=== PATIENT | female | born 1980 | race Caucasian/White ===

== ENCOUNTER → 2019-02-13 | Outpatient (REF) | payer OTHER | LOC: M LAB LCGH 09:42 | DX: N83.201 Unspecified ovarian cyst, right side (principal) ==

== ENCOUNTER 2021-08-20 05:57 | Day surgery (SDC) | payer BC ==
[2021-08-20] VITALS (8 sets, daily range): BP systolic 98–110; BP diastolic 52–57
[~2021-08-20] VITALS: Ht 152.4 cm; Wt 43.3 kg
[~2021-08-20 05:57] MED LIST: VITMTA PO
[2021-08-20] MEDS ORDERED: LIDOCAINE 1% MDV 20ML VIAL SQ PRN (06:00)
--- OUTSIDE RECORDS SUMMARY | 2021-08-20 06:03 | CCD | Continuity of Care Document ---
Author Author Amy MURCIA SAP BW CONSULTANT Organization Unknown Address [address] [place] [address] [address] [place] [address] Phone [phone] Care Team Providers Care Chain Sales Representative Name Role Phone Yoselin Can ([place]) AUTM Aide Carrillo MD - Orthopedic AUTM [phone] Yoselin Can M.D. AUTM [phone] Stacy Murcia SAP BW CONSULTANT AUTM [phone] Problems Active Problems Provider Date Raynaud's disease SYEDA Antunez Onset: 04/03/2015 Social History Type Date Description Comments Sex Unknown ETOH Use Denies alcohol use Tobacco Use Start: Unknown Patient has never smoked Recreational Drug Use Denies Drug Use Smoking Status Reviewed: 08/19/20 Patient has never smoked Exercise Type/Frequency Daily Activities Exercise Type/Frequency Walks daily Seat Belt/Car Seat Always uses seat belt Allergies, Adverse Reactions, Alerts Active Allergies Criticality Reaction | Severity Comments Date Flagyl Unable to assess criticality rash, vomit 12/04/2013 Sulfa Antibiotics Unable to assess criticality rash, vomit 11/16/2012 Augmentin Unable to assess criticality Hives | Moderate 01/24/2017 Medications Description No Active Medications Immunizations CPT Code Status Date Vaccine Lot # [id number] Given 08/19/2020 Influenza Virus Vaccine, Quadrivalent (Cciiv4), Derived From 4 Given 07/14/2014 Adacel (Tdap) Injection Vital Signs Date Vital Result Comment 08/19/2020 8:58am Height 60 inches 5'0" Weight 119.00 lb BMI (Body Mass Index) 23.2 kg/m2 BP Systolic 110 mmHg BP Diastolic 64 mmHg Body Temperature 97.3 F Heart Rate 83 /min Respiratory Rate 16 /min O2 % BldC Oximetry 97 % 01/27/2020 1:02pm Height 60 inches 5'0" Weight 118.00 lb BMI (Body Mass Index) 23.0 kg/m2 BP Systolic 126 mmHg BP Diastolic 82 mmHg Body Temperature 96.3 F Heart Rate 80 /min Respiratory Rate 16 /min Results Test Acquired Date Facility Test Result H/L Range Note CBC With Auto Diff 07/02/2021 [facility] WBC # Bld Auto 7.7 10*3/uL Normal 4.45-10.71 1 RBC # Bld Auto 3.50 10*6/uL Low 4.20-5.40 Hgb Bld-sCnc 11.2 g/dL Normal 10.7-15.4 Hct VFr Bld Auto 33.7 % Low 37-47 MCV BldCo Auto 96 fL Normal 80-96 MCH RBC Qn Auto 32 pg High 27-31 MCHC BldCo-mCnc 33 g/dL Normal 33-37 RDW RBC Auto 12 % Normal 11-15 Platelet # Bld Auto 287 10*3/uL Normal 130-472 PMV Bld 8.9 fL Low 9.1-13.1 Neutrophils/leuk NFr Bld Auto 44.9 % Normal 41-77 Neutrophils # Bld Auto 3.5 U Normal 1.7-7.6 Lymphocytes/leuk NFr Bld Auto 35.6 % Normal 14-46 Lymphocytes # Bld Auto 2.8 U Normal 0.6-4.6 Monocytes/leuk NFr Bld Auto 6.9 % Normal 4-12 Monocytes # Bld Auto 0.5 U Normal 0.2-1.2 Eosinophil/leuk NFr Bld Auto 11.5 % High 0-7 Eosinophil # Bld Auto 0.9 U High 0.0-0.5 Basophils/leuk NFr Bld Auto 0.8 % Normal 0.4-1.3 Basophils # Bld Auto 0.1 U Normal 0.0-0.2 Nucleated Red Blood Cell 0 % Nucleated Red Blood Cell# 0 U Imm Granulocytes Bld Ql Auto 0.3 Normal 0-2 Imm Granulocytes # Bld Auto 0.0 U Normal 0-0.1 Manual diff Bld NO Comprehensive Metabolic Prof 07/02/2021 [facility] BUN SerPl-mCnc 13 mg/dL Normal 9-23 Sodium SerPl-sCnc 141 mmol/L Normal 132-146 Potassium SerPl-sCnc 3.8 mmol/L Normal 3.5-5.5 Chloride SerPl-sCnc 109 mmol/L Normal 99-109 Co2 SerPl-sCnc 28 mmol/L Normal 20-31 Anion Gap SerPl-sCnc 8 mmol/L Normal 8-16 Glucose SerPl-mCnc 106 mg/dL Normal 74-106 Creatinine 0.6 mg/dL Normal 0.5-1.1 GFR/Bsa.pred SerPlBld-ArVRat Greater Than 60 Above 60 Alt SerPl w P-5'-P-cCnc 18 U/L Normal 10-49 Ast SerPl w P-5'-P-cCnc 13 U/L Normal 0-33 Alp SerPl-cCnc 62 U/L Normal 45-129 Calcium SerPl-mCnc 8.4 mg/dL Low 8.5-10.1 Bilirub SerPl-mCnc 0.4 mg/dL Normal 0.3-1.2 Albumin SerPl BCP-mCnc 3.3 g/dL Normal 3.2-4.8 Prot SerPl-mCnc 6.6 g/dL Normal 5.7-8.2 Laboratory test finding 07/02/2021 [facility] HCG Ur-sCnc NEGATIVE Negative Urinalysis 07/02/2021 [facility] Urine Microscopic Added Microscopic Adde <SEE NOTE> 2 Color Ur ORANGE Abnormal Appearance Ur CLOUDY Abnormal Clear pH Ur Strip 6.0 5-8 Sp [address] Ur Refractometry 1.014 1.005-1.030 Leukocyte esterase Ur Ql Strip SMALL High Negative Nitrite Ur Ql Strip NEGATIVE Negative Prot Ur Ql Strip 30 mg/dL High Negative Glucose Ur Strip.auto-mCnc NEGATIVE Negative Ketones Ur Ql Strip NEGATIVE Negative Urobilinogen Ur Ql 0.2 EU/dl 0.2-1 Eu/dl Bilirub Ur Ql Strip.auto NEGATIVE Negative RBC # Ur Strip LARGE High Negative Urinalysis W/ Microscopic 07/02/2021 [facility] RBC # Ur Manual 51-100 [facility] High 0-5 WBC # Ur Manual 3-5 [facility] 0-5 Cells UrnS Micro FEW Bacteria UrnS Ql Micro SMALL AMOUNT High Negative Sars-CoV+Sars-CoV-2 Ag Resp Ql Ia.rapid 06/28/2021 [facility] Cepheid Sars/Flu/RSV RT-PCR (SEE NOTE) 3, 4 CBC With Auto Diff 06/28/2021 [facility] WBC # Bld Auto 8.3 10*3/uL Normal 4.45-10.71 RBC # Bld Auto 3.92 10*6/uL Low 4.20-5.40 Hgb Bld-sCnc 12.6 g/dL Normal 10.7-15.4 Hct VFr Bld Auto 37.5 % Normal 37-47 MCV BldCo Auto 96 fL Normal 80-96 MCH RBC Qn Auto 32 pg High 27-31 MCHC BldCo-mCnc 34 g/dL Normal 33-37 RDW RBC Auto 12 % Normal 11-15 Platelet # Bld Auto 349 10*3/uL Normal 130-472 PMV Bld 8.9 fL Low 9.1-13.1 Neutrophils/leuk NFr Bld Auto 55.9 % Normal 41-77 Neutrophils # Bld Auto 4.7 U Normal 1.7-7.6 Lymphocytes/leuk NFr Bld Auto 29.8 % Normal 14-46 Lymphocytes # Bld Auto 2.5 U Normal 0.6-4.6 Monocytes/leuk NFr Bld Auto 6.7 % Normal 4-12 Monocytes # Bld Auto 0.6 U Normal 0.2-1.2 Eosinophil/leuk NFr Bld Auto 6.1 % Normal 0-7 Eosinophil # Bld Auto 0.5 U Normal 0.0-0.5 Basophils/leuk NFr Bld Auto 1.1 % Normal 0.4-1.3 Basophils # Bld Auto 0.1 U Normal 0.0-0.2 Nucleated Red Blood Cell 0 % Nucleated Red Blood Cell# 0 U Imm Granulocytes Bld Ql Auto 0.4 Normal 0-2 Imm Granulocytes # Bld Auto 0.0 U Normal 0-0.1 Manual diff Bld NO Comprehensive Metabolic Prof 06/28/2021 [facility] BUN SerPl-mCnc 9 mg/dL Normal 9-23 Sodium SerPl-sCnc 141 mmol/L Normal 132-146 Potassium SerPl-sCnc 3.5 mmol/L Normal 3.5-5.5 Chloride SerPl-sCnc 109 mmol/L Normal 99-109 Co2 SerPl-sCnc 30 mmol/L Normal 20-31 Anion Gap SerPl-sCnc 6 mmol/L Low 8-16 Glucose SerPl-mCnc 103 mg/dL Normal 74-106 Creatinine 0.6 mg/dL Normal 0.5-1.1 GFR/Bsa.pred SerPlBld-ArVRat Greater Than 60 Above 60 Alt SerPl w P-5'-P-cCnc 19 U/L Normal 10-49 Ast SerPl w P-5'-P-cCnc 14 U/L Normal 0-33 Alp SerPl-cCnc 72 U/L Normal 45-129 Calcium SerPl-mCnc 8.7 mg/dL Normal 8.5-10.1 Bilirub SerPl-mCnc 0.5 mg/dL Normal 0.3-1.2 Albumin SerPl BCP-mCnc 3.6 g/dL Normal 3.2-4.8 Prot SerPl-mCnc 7.2 g/dL Normal 5.7-8.2 PT/PTT 06/28/2021 [facility] l Prothrombin Time (Patient) 10.8 s Normal 9.6-12.3 Inr 1.0 Normal 0.9-1.1 5 Screen aPTT 26.2 s Normal 22.7-31.6 Ua dipstick Pnl Ur Strip.auto 06/28/2021 [facility] Color Ur RED Appearance Ur CLOUDY Abnormal Clear pH Ur Strip 5.0 5-8 Sp Gr Ur Refractometry 1.008 1.005-1.030 Leukocyte esterase Ur Ql Strip SMALL High Negative Nitrite Ur Ql Strip NEGATIVE Negative Prot Ur Ql Strip 300 mg/dL High Negative Glucose Ur Strip.auto-mCnc NEGATIVE Negative Ketones Ur Ql Strip NEGATIVE Negative Urobilinogen Ur Ql 0.2 EU/dl 0.2-1 Eu/dl Bilirub Ur Ql Strip.auto NEGATIVE Negative RBC # Ur Strip LARGE High Negative Urine Microscopic Added Microscopic Adde <SEE NOTE> 6 Urinalysis W/ Microscopic 06/28/2021 [facility] RBC # Ur Manual 51-100 [facility] High 0-5 WBC # Ur Manual 2-4 [facility] 0-5 Cells UrnS Micro FEW Bacteria UrnS Ql Micro SMALL AMOUNT High Negative Laboratory test finding 06/28/2021 [facility] Bacteria identified in Urine by Culture No growth Laboratory test finding 06/09/2021 [facility] ( )- - Coronavirus (Sars-Cov-2),Dina Not Detected Not Detected 7 1 SIDE PAIN,URINATING BLOOD 2 Microscopic Added 3 BLOOD CLOTS IN URINE 4 NORMAL RESULT IS "Not Detected" Cepheid SARS-CoV-2,FLU/RSV is Multiplex real time RT-PCR Negative results do not preclude SARS-COV-2, influenza or RSV infection and should not be used as the sole basis for treatment or other patient management decisions. False negative results may occur if virus is present at levels below the analytical limit of detection. This test has been authorized by FDA under an EUA for use by authorized laboratories SARS-rel CoV RNA Resp Ql DINA+probe FLUAV RNA Resp Ql DINA+probe FLUBV RNA Resp Ql DINA+probe RSV RNA Resp Ql DINA+probe 5 THE INR IS OPERATIONALLY DEF INED FOR FRESH PLASMA FROM PATIENTS STABILIZED ON ORAL ANTICOAGULANTS. ROUTINE ANTICOAGULANT THERAPY 2.0-3.0 RECURRENT SYSTEMIC EMBOLISM/HEART VALVE REPLACEMENT 2.5-3.5 6 Microscopic Added 7 This nucleic acid amplificat ion test was developed and its performance characteristics determined by [employer]. Nucleic acid amplification tests include RT-PCR and TMA. This test has not been FDA cleared or approved. This test has been authorized by FDA under an Emergency Use Authorization (EUA). This test is only authorized for the duration of time the declaration that circumstances exist justifying the authorization of the emergency use of in vitro diagnostic tests for detection of SARS-CoV-2 virus and/or diagnosis of COVID-19 infection under section 564(b)(1) of the Act, 21 U.S.C. 360bbb-3(b) (1), unless the authorizatio n is terminated or revoked sooner. When diagnostic testing is negative, the possibility of a false negative result should be considered in the context of a patient's recent exposures and the presence of clinical signs and symptoms consistent with COVID-19. An individual without symptoms of COVID-19 and who is not shedding SARS-CoV-2 virus would expect to have a negative (not detected) result in this assay. [facility] [id number] Procedures Date Code Description Status 08/11/2020 [id number] Mammogram Completed Medical Devices Description No Information Available Encounters Description No Information Available Assessments Description No Information Available Plan of Treatment 08/19/2020 - SYEDA Melton* Z00.00 Encntr for general adult medical exam w/o abnormal findings * R20.0 Anesthesia of skin * Z23 Encounter for immunization* Comments:* Exam normalFlu shot updatedLabs to be done due to facial numbness * Follow up:* annually or as needed Labs to be done; will call you with results Don't use tobacco/e-cigarettes Find ways to deal with stress [place] teeth twice daily; floss once daily See dentist twice per year Drink water Be physically active 30 minutes per day Get enough sleep Call with any further questions or concerns. Functional Status Description No Information Available Mental Status Description No Information Available Referrals Description No Information Available
--- OUTSIDE RECORDS SUMMARY | 2021-08-20 06:03 | CCD ---
Author Author [facility] em[facility] Organization [facility] em[facility] Address Unknown Phone Unavailable Care Team Providers Care Drawer In Hand Name Role Phone Robbiemaximiliano Leydi Unavailable PROBLEMS No Information ALLERGIES Allergen (clinical drug ingredient) Drug/Non Drug Allergy do cumented on EMR Reaction Allergy Type Onset Date Status Sulfasalazine Sulfa Antibiotics Rash Drug Allergy Ac tive metronidazole Flagyl([facility] Code:[address]-89) Rash Drug Allergy Active ENCOUNTERS from 1978 to 2021-07-01 Encounter Location Date Provider Diagnosis [facility] Urology [address] [phone] [place] [address] Jun, Leydi Moe Gross hematuria R31.0 IMMUNIZATIONS No Information SOCIAL HISTORY Tobacco Use: Social History Observation Description Date Details (start date - stop date) Current Smoker Sex Assigned At : Social History Observation Description Sex Assigned At Unknown Tobacco Use: Question Answer Notes Are you a: current smoker Are you interested in quitting? smokes a little REASON FOR REFERRAL No Information VITAL SIGNS Weight 97.8 lbs Jun, Weight-kg 44.36 kg Jun, Height 59 in Jun, BMI 19.75 kg/m2 Jun, Heart Rate 76 /min Jun, Respiratory Rate 18 /min Jun, Temperature 97.8 degrees Fahrenheit Jun, Oximetry 99% Jun, Blood pressure systolic 108 mm Hg Jun, Blood pressure diastolic 62 mm Hg Jun, MEDICATIONS Medication SIG (Take, Route, Frequency, Duration) Notes Start Da te End Date Status Nitrofurantoin Macrocrystal 100 MG 1 capsule at bedtim e with food or milk Orally Once a day for 10 day(s) Active Multivitamin - 1 tablet Orally Once a day for 30 day(s) Active Ciprofloxacin HCl 500 MG 1 tablet Orally as directed- 1 hour prior to cystoscopy Jun, Active PROCEDURES No Information RESULTS No Results REASON FOR VISIT [facility] f/u MEDICAL (GENERAL) HISTORY Type Description Date Surgical History hysterectomy 2013 Surgical History breast biopsy right Surgical History section Surgical History cholecystectomy Surgical History josef tubes and ovaries adhesions 2019 Surgical History tubal ligation Goals Section No Information Health Concerns No Information MEDICAL EQUIPMENT No Information MENTAL STATUS No Information FUNCTIONAL STATUS No Information ASSESSMENTS Encounter Date Diagnosis Assessment Notes Treatment Notes Treatm ent Clinical Notes Jun, Gross hematuria (ICD-10 - R31.0) PLAN OF TREATMENT Medication Medication Name Sig Start Date Stop Date Ciprofloxacin HCl 500 MG 1 tablet Orally as directed- 1 hour prior to cystoscopy Jun, Treatment Notes Test Name Order Date uro PVR (Post Voiding Residual) Bladder Scan 2021-06-07 5 Next Appt Details cysto Reason:[facility] Provider Name:Gerardo Luong, 2021-06-07 7 02:45:00 PM, [id number], , [place], [address], Follow Up:cystoGH Insurance Providers Payer Name Payer Address Payer Phone Insured Name Patient Relati onship to Insured Coverage Start Date Coverage End Date BCFELICIANO BAILEY PPO [phone] [facility] [place] [address] LAVON LAWS self
--- OUTSIDE RECORDS SUMMARY | 2021-08-20 06:03 | CCD | Continuity of Care Document ---
Author Author Amy MURCIA DENTAL TECHNICIAN APPRENTICE Organization Unknown Address [address] [place] [address] [address] [place] [address] Phone [phone] Care Team Providers Care Embalmer Apprentice Name Role Phone Yoselin Can ([place]) AUTM [phone] Aide Carrillo MD - Orthopedic AUTM [phone] Yoselin Can M.D. AUTM [phone] Stacy Murcia DENTAL TECHNICIAN APPRENTICE AUTM [phone] Problems Active Problems Provider Date Raynaud's disease [...] CPT Code Status Date Vaccine Lot # [id number] Given 08/19/2020 Influenza Virus Vaccine, Quadrivalent (Cciiv4), Derived From 9 Given 07/14/2014 Adacel (Tdap) Injection Vital Signs [...] Date Facility Test Result H/L Range Note Sars-CoV+Sars-CoV-2 Ag Resp Ql Ia.rapid 06/28/2021 [facility] Cepheid Sars/Flu/RSV RT-PCR (SEE NOTE) 1, 2 [facility] With [facility] # Bld Auto 8.3 10*3/uL [...] diff Bld NO Comprehensive Metabolic Prof 06/28/2021 [facility] BUN SerPl-mCnc 9 mg/dL Normal 9-23 [...] SerPl-mCnc 7.2 g/dL Normal 5.7-8.2 PT/PTT 06/28/2021 [facility] Prothrombin Time (Patient) 10.8 s Normal 9.6-12.3 Inr 1.0 Normal 0.9-1.1 3 Screen aPTT 26.2 s Normal 22.7-31.6 Ua dipstick Pnl Ur Strip.auto 06/28/2021 [facility] Color Ur RED Appearance Ur CLOUDY Abnormal [...] Urine Microscopic Added Microscopic Adde <SEE NOTE> 4 Urinalysis W/ Microscopic 06/28/2021 [facility] RBC # Ur Manual 51-100 [facility] High 0-5 WBC # Ur Manual 2-4 [facility] 0-5 Cells UrnS Micro FEW Bacteria UrnS Ql Micro SMALL AMOUNT High Negative Laboratory test finding 06/09/[address] [facility] ( )- - Coronavirus (Sars-Cov-2),Dina Not Detected Not Detected 5 1 BLOOD CLOTS IN URINE 2 NORMAL RESULT IS "Not Detected" Cepheid SARS-CoV-2,FLU/RSV [...] Ql DINA+probe RSV RNA Resp Ql DINA+probe 3 THE INR IS OPERATIONALLY DEF INED FOR FRESH PLASMA FROM PATIENTS STABILIZED ON ORAL ANTICOAGULANTS. ROUTINE ANTICOAGULANT THERAPY 2.0-3.0 RECURRENT SYSTEMIC EMBOLISM/HEART VALVE REPLACEMENT 2.5-3.5 4 Microscopic Added 5 This nucleic acid amplificat ion test was developed and its performance characteristics determined by [employer]. Nucleic acid amplification tests include RT-PCR and [...] negative (not detected) result in this assay. [facility] [address] [id number] Procedures Date Code Description Status 08/11/2020 [id number] Mammogram Completed Medical Devices Description No Information [...] tobacco/e-cigarettes Find ways to deal with stress [place] teeth twice daily; floss once daily See dentist twice per year Drink water Be physically active 30 minutes per day Get enough sleep Call with any further questions or concerns. Functional Status Description No Information Available Mental Status Description No Information Available Referrals Description No Information Available
--- OUTSIDE RECORDS SUMMARY | 2021-08-20 06:03 | CCD ---
Author Author [facility] Organization [facility] Address Unknown Phone Unavailable Care Team Providers Care Enterprise Resource Analyst Name Role Phone Gerardo Luong Unavailable PROBLEMS No Information ALLERGIES Allergen (clinical drug ingredient) Drug/Non Drug Allergy do cumented on EMR Reaction Allergy Type Onset Date Status Sulfasalazine Sulfa Antibiotics Rash Drug Allergy Ac tive metronidazole Flagyl([facility] Code:[address]-50) Rash Drug Allergy Active ENCOUNTERS from 1978 to 2021-07-22 Encounter Location Date Provider Diagnosis [facility] Urology [address] [phone] [place] [address] Jul, Gerardo Luong UPJ obstruction, acquired N13.5 IMMUNIZATIONS No Information SOCIAL HISTORY Tobacco Use: Social History Observation Description Date Details (start date - stop date) Current Smoker Sex Assigned At : Social History Observation Description Sex Assigned At Unknown Tobacco Use: Question Answer Notes Are you a: current smoker Are you interested in quitting? smokes a little REASON FOR REFERRAL No Information VITAL SIGNS No information MEDICATIONS Medication SIG (Take, Route, Frequency, Duration) Notes Start Da te End Date Status Multivitamin - 1 tablet Orally Once a day for 30 day(s) Active Ciprofloxacin HCl 500 MG 1 tablet Orally as directed- 1 hour prior to cystoscopy Jun, Not-Taking Nitrofurantoin Macrocrystal 100 MG 1 capsule at bedtim e with food or milk Orally Once a day for 10 day(s) Not-Pranav ing Diflucan 150 MG 1 tablet Orally 1 Jun, Not-Taking Oxybutynin Chloride ER 10 MG 1 tablet Orally Once a day for 30 day(s) Active PROCEDURES No Information RESULTS No Results REASON FOR VISIT renal u/s order MEDICAL (GENERAL) HISTORY Type Description Date Medical History Possible right UPJ obstruction Surgical History hysterectomy 2013 Surgical History breast biopsy right Surgical History section Surgical History cholecystectomy Surgical History josef tubes and ovaries adhesions 2019 Surgical History tubal ligation Surgical History cysto with stent placement 06/2021 Goals Section No Information Health Concerns No Information MEDICAL EQUIPMENT No Information MENTAL STATUS No Information FUNCTIONAL STATUS No Information ASSESSMENTS Encounter Date Diagnosis Assessment Notes Treatment Notes Treatm ent Clinical Notes Jul, UPJ obstruction, acquired (ICD-10 - N13.5) PLAN OF TREATMENT Treatment Notes Test Name Order Date [facility] NM-Kidney Imaging w/pharm/flow 2021-07-20 Next Appt Details Provider Name:Gerardo Luong, 2021-07-08 9 10:45:00 AM, [id number], , [place], [address], Insurance Providers Payer Name Payer Address Payer Phone Insured Name Patient Relati onship to Insured Coverage Start Date Coverage End Date [employer]BS [place] PPO [phone] [facility] [place] [address] LAVON LAWS self
--- OUTSIDE RECORDS SUMMARY | 2021-08-20 06:03 | CCD | Continuity of Care Document ---
Author Author Amy MURCIA UNDERWRITER SOLICITATION DIRECTOR Organization Unknown Address [address] [place] [address] [address] [place] [address] Phone [phone] Care Team Providers Care Administrative Services Officer Name Role Phone Yoselin Can ([place]) AUTM [phone] Aide Carrillo MD - Orthopedic AUTM Yoselin Can M.D. AUTM [phone] Stacy Murcia UNDERWRITER SOLICITATION DIRECTOR AUTM [phone] Problems Active Problems Provider Date Raynaud's disease [...] CPT Code Status Date Vaccine Lot # [id number] Given 08/19/2020 Influenza Virus Vaccine, Quadrivalent (Cciiv4), [...] Range Note CBC With Auto Diff 07/02/2021 [facility] WBC # Bld Auto 7.7 10*3/uL Normal [...] diff Bld NO Comprehensive Metabolic Prof 07/02/2021 [facility] BUN SerPl-mCnc 13 mg/dL Normal 9-23 [...] g/dL Normal 5.7-8.2 Laboratory test finding 07/02/2021 [facility] HCG Ur-sCnc NEGATIVE Negative Urinalysis 07/02/2021 [facility] Urine Microscopic Added Microscopic Adde [...] LARGE High Negative Urinalysis W/ Microscopic 07/02/2021 [facility] RBC # Ur Manual 51-100 [facility] High 0-5 WBC # Ur Manual 3-5 [facility] 0-5 Cells UrnS Micro FEW Bacteria UrnS Ql Micro SMALL AMOUNT High Negative Sars-CoV+Sars-CoV-2 Ag Resp Ql Ia.rapid 06/28/2021 [facility] Cepheid Sars/Flu/RSV RT-PCR (SEE NOTE) 3, 4 CBC With Auto Diff 06/28/2021 [facility] WBC # Bld Auto 8.3 [...] diff Bld NO Comprehensive Metabolic Prof 06/28/2021 [facility] BUN SerPl-mCnc 9 mg/dL Normal 9-23 [...] SerPl-mCnc 7.2 g/dL Normal 5.7-8.2 PT/PTT 06/28/2021 [facility] l Prothrombin Time (Patient) 10.8 s Normal 9.6-12.3 Inr 1.0 Normal 0.9-1.1 5 Screen aPTT 26.2 s Normal 22.7-31.6 Ua dipstick Pnl Ur Strip.auto 06/28/2021 [facility] Color Ur RED Appearance Ur CLOUDY [...] <SEE NOTE> 6 Urinalysis W/ Microscopic 06/28/2021 [facility] RBC # Ur Manual 51-100 [facility] High 0-5 WBC # Ur Manual 2-4 [facility] 0-5 Cells UrnS Micro FEW Bacteria UrnS Ql Micro SMALL AMOUNT High Negative Laboratory test finding 06/28/2021 [facility] Bacteria identified in Urine by Culture No growth Laboratory test finding 06/09/2021 [facility] ( )- - Coronavirus (Sars-Cov-2),Dina Not Detected [...] developed and its performance characteristics determined by [employer]. Nucleic acid amplification tests include RT-PCR and [...] negative (not detected) result in this assay. [facility] [id number] Procedures Date Code Description Status 08/11/2020 [id number] Mammogram Completed Medical Devices Description No Information [...] tobacco/e-cigarettes Find ways to deal with stress [place] teeth twice daily; floss once daily See dentist twice per year Drink water Be physically active 30 minutes per day Get enough sleep Call with any further questions or concerns. Functional Status Description No Information Available Mental Status Description No Information Available Referrals Description No Information Available
--- OUTSIDE RECORDS SUMMARY | 2021-08-20 06:03 | CCD | Continuity of Care Document ---
Author Author Amy MURCIA CASH GRAIN GROWER Organization Unknown Address [address] [place] [address] 12 [place] [address] Phone [phone] Care Team Providers Care Assistant Professor Of Anthropology Name Role Phone Yoseiln Can ([place]) AUTM Aide Carrillo MD - Orthopedic AUTM Yoselin Can M.D. AUTM [phone] Stacy Murcia CASH GRAIN GROWER AUTM [phone] Problems Active Problems Provider Date Raynaud's disease [...] CPT Code Status Date Vaccine Lot # [id number] Given 08/19/2020 Influenza Virus Vaccine, Quadrivalent (Cciiv4), Derived From 5 Given 07/14/2014 Adacel (Tdap) Injection Vital Signs [...] Note Sars-CoV+Sars-CoV-2 Ag Resp Ql Ia.rapid 06/28/2021 [facility] Cepheid Sars/Flu/RSV RT-PCR (SEE NOTE) 1, 2 CBC With Auto Diff [facility] # Bld Auto 8.3 10*3/uL [...] diff Bld NO Comprehensive Metabolic Prof 06/28/2021 [facility] BUN SerPl-mCnc 9 mg/dL Normal 9-23 Sodium [...] SerPl-mCnc 7.2 g/dL Normal 5.7-8.2 PT/PTT 06/28/2021 [facility] Prothrombin Time (Patient) 10.8 s Normal 9.6-12.3 Inr 1.0 Normal 0.9-1.1 3 Screen aPTT 26.2 s Normal 22.7-31.6 Ua dipstick Pnl Ur Strip.auto 06/28/2021 [facility] Color Ur RED Appearance Ur [...] <SEE NOTE> 4 Urinalysis W/ Microscopic 06/28/2021 [facility] H [facility]spital RBC # Ur Manual 51-100 [facility] High 0-5 WBC # Ur Manual 2-4 [facility] 0-5 Cells UrnS Micro FEW Bacteria UrnS Ql Micro SMALL AMOUNT High Negative Laboratory test finding 06/09/2021 [facility] ( )- - Coronavirus (Sars-Cov-2),Dina Not Detected [...] developed and its performance characteristics determined by [employer]. Nucleic acid amplification tests include RT-PCR and [...] (not detected) result in this assay. [facility] [address] [id number] Procedures Date Code Description Status 08/11/2020 [id number] Mammogram Completed Medical Devices Description No Information [...] tobacco/e-cigarettes Find ways to deal with stress [place] teeth twice daily; floss once daily See dentist twice per year Drink water Be physically active 30 minutes per day Get enough sleep Call with any further questions or concerns. Functional Status Description No Information Available Mental Status Description No Information Available Referrals Description No Information Available
--- OUTSIDE RECORDS SUMMARY | 2021-08-20 06:03 | CCD | Continuity of Care Document ---
Author Author Amy MURCIA INDUSTRIAL MAINTENANCE INSTRUCTOR Organization Unknown Address [address] [place] [address] 12 [place] [address] Phone [phone] Care Team Providers Care Oral And Maxillofacial Surgeon Name Role Phone Yoselin Can ([place]) AUTM Aide Carrillo MD - Orthopedic AUTM Yoselin Can M.D. AUTM [phone] Stacy Murcia INDUSTRIAL MAINTENANCE INSTRUCTOR AUTM [phone] Problems Active Problems Provider Date Raynaud's disease [...] belt Allergies, Adverse Reactions, Alerts Active Allergies Reaction Severity Comments Date Flagyl rash, vomit 12/04/2013 Sulfa Antibiotics rash, vomit 11/16/2012 Augmentin Hives Moderate 01/24/2017 Medications Description No Active Medications Immunizations CPT Code Status Date Vaccine Lot # [id number] Given 08/19/2020 Influenza Virus Vaccine, Quadrivalent (Cciiv4), Derived From 2 Given 07/14/2014 Adacel (Tdap) Injection Vital Signs [...] Date Facility Test Result H/L Range Note Laboratory test finding 06/09/2021 [facility] ( )- - Coronavirus (Sars-Cov-2),Dina Not Detected Not Detected 1 1 This nucleic acid amplificat ion test was developed and its performance characteristics determined by [employer]. Nucleic acid amplification tests include RT-PCR and [...] negative (not detected) result in this assay. RN-[facility] [id number] Procedures Date Code Description Status 08/11/2020 [id number] Mammogram Completed Medical Devices Description No Information [...] tobacco/e-cigarettes Find ways to deal with stress [place] teeth twice daily; floss once daily See dentist twice per year Drink water Be physically active 30 minutes per day Get enough sleep Call with any further questions or concerns. Functional Status Description No Information Available Mental Status Description No Information Available Referrals Description No Information Available
--- OUTSIDE RECORDS SUMMARY | 2021-08-20 06:03 | CCD | Continuity of Care Document ---
Author Author Amy MURCIA CURRICULUM WRITER Organization Unknown Address [address] [place] [address] 12 [place] [address] Phone [phone] Care Team Providers Care Business Performance Specialist Name Role Phone Yoselin Can ([place]) AUTM Aide Carrillo MD - Orthopedic AUTM Yoselin Can M.D. AUTM [phone] Stacy Murcia CURRICULUM WRITER AUTM [phone] Problems Active Problems Provider Date Raynaud's disease [...] CPT Code Status Date Vaccine Lot # [id number] Given 08/19/2020 Influenza Virus Vaccine, Quadrivalent (Cciiv4), Derived From 0 Given 07/14/2014 Adacel (Tdap) Injection Vital Signs [...] Note Sars-CoV+Sars-CoV-2 Ag Resp Ql Ia.rapid 06/28/2021 [facility] Cepheid Sars/Flu/RSV RT-PCR (SEE NOTE) 1, 2 CBC With Auto Diff [facility] # Bld Auto 8.3 [...] diff Bld NO Comprehensive Metabolic Prof 06/28/2021 [facility] BUN SerPl-mCnc 9 mg/dL Normal [...] SerPl-mCnc 7.2 g/dL Normal 5.7-8.2 PT/PTT 06/28/2021 [facility] Prothrombin Time (Patient) 10.8 s Normal 9.6-12.3 Inr 1.0 Normal 0.9-1.1 3 Screen aPTT 26.2 s Normal 22.7-31.6 Ua dipstick Pnl Ur Strip.auto 06/28/2021 [facility] Color Ur RED Appearance Ur CLOUDY [...] <SEE NOTE> 4 Urinalysis W/ Microscopic 06/28/2021 [facility] H ospital RBC # Ur Manual 51-100 [facility] High 0-5 WBC # Ur Manual 2-4 [facility] 0-5 Cells UrnS Micro FEW Bacteria UrnS Ql Micro SMALL AMOUNT High Negative Laboratory test finding 06/09/2021 [facility] ( )- - Coronavirus (Sars-Cov-2),Dina Not [...] developed and its performance characteristics determined by [employer] [facility]. Nucleic acid amplification tests include RT-PCR and [...] (not detected) result in this assay. [facility] [address] [id number] Procedures Date Code Description Status 08/11/2020 [id number] Mammogram Completed Medical Devices Description No Information [...] tobacco/e-cigarettes Find ways to deal with stress [place] teeth twice daily; floss once daily See dentist twice per year Drink water Be physically active 30 minutes per day Get enough sleep Call with any further questions or concerns. Functional Status Description No Information Available Mental Status Description No Information Available Referrals Description No Information Available
--- OUTSIDE RECORDS SUMMARY | 2021-08-20 06:03 | CCD ---
Author Author [facility] Organization [facility] Address Unknown Phone Unavailable Care Team Providers Care Sheet Manufacturing Supervisor Name Role Phone RobbieLanie vierahel Unavailable PROBLEMS No Information ALLERGIES Allergen (clinical drug ingredient) Drug/Non Drug Allergy do cumented on EMR Reaction Allergy Type Onset Date Status Sulfasalazine Sulfa Antibiotics Rash Drug Allergy Ac tive metronidazole Flagyl([facility] Code:[address]-79) Rash Drug Allergy Active ENCOUNTERS from 1978 to 2021-07-02 Encounter Location Date Provider Diagnosis [facility] Urology [address] [phone] [place] [address] Jun, Leydi Moe Gross hematuria R31.0 IMMUNIZATIONS [...] Once a day for 30 day(s) Active Diflucan 150 MG 1 tablet Orally 1 Jun, Active Nitrofurantoin Macrocrystal 100 MG 1 capsule at bedtim e with food or milk Orally Once a day for 10 day(s) Active Ciprofloxacin HCl 500 MG 1 tablet Orally as directed- 1 hour prior to cystoscopy Jun, Active PROCEDURES No Information RESULTS No Results REASON FOR VISIT diflucan order MEDICAL (GENERAL) HISTORY Type Description Date Surgical [...] directed- 1 hour prior to cystoscopy Jun, Diflucan 150 MG 1 tablet Orally 1 Jun, Next Appt Details Provider Name:Gerardo Luong, 2020-08-3 1 03:30:00 PM, [address], , [place], [address], Insurance Providers Payer Name Payer Address Payer Phone Insured Name Patient Relati onship to Insured Coverage Start Date Coverage End Date [place] PPO [phone] [facility] [place] [address] LAVON LAWS self
--- OUTSIDE RECORDS SUMMARY | 2021-08-20 06:03 | CCD | Continuity of Care Document ---
Author Author Amy MURCIA RIPENING ROOM OPERATOR Organization Unknown Address [address] [place] [address] 12 [place] [address] Phone [phone] Care Team Providers Care Demi Chef Name Role Phone Yoselin Can ([place]) AUTM Aide Carrillo MD - Orthopedic AUTM [phone] Yoselin Can M.D. AUTM [phone] Stacy Murcia RIPENING ROOM OPERATOR AUTM [phone] Problems Active Problems Provider Date Raynaud's disease [...] CPT Code Status Date Vaccine Lot # [id number] Given 08/19/2020 Influenza Virus Vaccine, Quadrivalent (Cciiv4), [...] Range Note CBC With Auto Diff 07/02/2021 [facility] WBC # Bld Auto 7.7 10*3/uL [...] diff Bld NO Comprehensive Metabolic Prof 07/02/2021 [facility] BUN SerPl-mCnc 13 mg/dL Normal 9-23 Sodium [...] g/dL Normal 5.7-8.2 Laboratory test finding 07/02/2021 [facility] HCG Ur-sCnc NEGATIVE Negative Urinalysis 07/02/2021 [facility] Urine Microscopic Added Microscopic [...] LARGE High Negative Urinalysis W/ Microscopic 07/02/2021 [facility] RBC # Ur Manual 51-100 [facility] High 0-5 WBC # Ur Manual 3-5 [facility] 0-5 Cells UrnS Micro FEW Bacteria UrnS Ql Micro SMALL AMOUNT High Negative Laboratory test finding 07/02/2021 [facility] Bacteria identified in Urine by Culture Less than 10,000 <SEE NOTE> 3 Sars-CoV+Sars-CoV-2 Ag Resp Ql Ia.rapid 06/28/2021 [facility] Cepheid Sars/Flu/RSV RT-PCR (SEE NOTE) 4, 5 CBC With Auto Diff 06/28/2021 [facility] l WBC # Bld Auto 8.3 10*3/uL [...] diff Bld NO Comprehensive Metabolic Prof 06/28/2021 [facility] BUN SerPl-mCnc 9 mg/dL Normal 9-23 [...] SerPl-mCnc 7.2 g/dL Normal 5.7-8.2 PT/PTT 06/28/2021 [facility] l Prothrombin Time (Patient) 10.8 s Normal 9.6-12.3 Inr 1.0 Normal 0.9-1.1 6 Screen aPTT 26.2 s Normal 22.7-31.6 Ua dipstick Pnl Ur Strip.auto 06/28/2021 [facility] Color Ur RED Appearance Ur CLOUDY [...] Urine Microscopic Added Microscopic Adde <SEE NOTE> 7 Urinalysis W/ Microscopic 06/28/2021 [facility] RBC # Ur Manual 51-100 [facility] High 0-5 WBC # Ur Manual 2-4 [facility] 0-5 Cells UrnS Micro FEW Bacteria UrnS Ql Micro SMALL AMOUNT High Negative Laboratory test finding 06/28/2021 [facility] Bacteria identified in Urine by Culture No growth Laboratory test finding 06/09/2021 [facility] ( )- - Coronavirus (Sars-Cov-2),Dina Not Detected Not Detected 8 1 SIDE PAIN,URINATING BLOOD 2 Microscopic Added 3 Less than 10,000 CFU/ML Staph spp, Strep spp, Corynebacterium spp Probable contaminants no senst done 4 BLOOD CLOTS IN URINE 5 NORMAL RESULT IS "Not Detected" Cepheid SARS-CoV-2,FLU/RSV [...] Ql DINA+probe RSV RNA Resp Ql DINA+probe 6 THE INR IS OPERATIONALLY DEF INED FOR FRESH PLASMA FROM PATIENTS STABILIZED ON ORAL ANTICOAGULANTS. ROUTINE ANTICOAGULANT THERAPY 2.0-3.0 RECURRENT SYSTEMIC EMBOLISM/HEART VALVE REPLACEMENT 2.5-3.5 7 Microscopic Added 8 This nucleic acid amplificat ion test was developed and its performance characteristics determined by [employer]. Nucleic acid amplification tests include RT-PCR and [...] (not detected) result in this assay. RN[facility] [address] [id number] Procedures Date Code Description Status 08/11/2020 [id number] Mammogram Completed Medical Devices Description No Information [...] tobacco/e-cigarettes Find ways to deal with stress [place] teeth twice daily; floss once daily See dentist twice per year Drink water Be physically active 30 minutes per day Get enough sleep Call with any further questions or concerns. Functional Status Description No Information Available Mental Status Description No Information Available Referrals Description No Information Available
--- OUTSIDE RECORDS SUMMARY | 2021-08-20 06:03 | CCD ---
Author Author [facility] [employer] ems Organization [facility] Address Unknown Phone Unavailable Care Team Providers Care Motor Express Clerk Name Role Phone Gerardo Luong Unavailable PROBLEMS No Information ALLERGIES Allergen (clinical drug ingredient) Drug/Non Drug Allergy do cumented on EMR Reaction Allergy Type Onset Date Status Sulfasalazine Sulfa Antibiotics Rash Drug Allergy Ac tive metronidazole Flagyl([facility] Code:[address]-37) Rash Drug Allergy Active ENCOUNTERS from 1978 to 2021-07-29 Encounter Location Date Provider Diagnosis [facility] Urology [address] [phone] [place] [address] Jun, Gerardo Ag Gross hematuria R31.0 and Hydronephrosis , right N13.30 IMMUNIZATIONS No Information SOCIAL HISTORY Tobacco Use: Social History Observation Description Date Details (start date - stop date) Current Smoker Sex Assigned At : Social History Observation Description Sex Assigned At Unknown Tobacco Use: Question Answer Notes Are you a: current smoker Are you interested in quitting? smokes a little REASON FOR REFERRAL No Information VITAL SIGNS Weight 97 lbs Jun, Height 59 in Jun, BMI 19.59 kg/m2 Jun, Heart Rate 78 /min Jun, Respiratory Rate 18 /min Jun, Temperature 97.7 degrees Fahrenheit Jun, Oximetry 98 Jun, Blood pressure systolic 110 mm Hg Jun, Blood pressure diastolic 66 mm Hg Jun, MEDICATIONS Medication SIG (Take, [...] Information RESULTS No Results REASON FOR VISIT gross hematuria MEDICAL (GENERAL) HISTORY Type Description Date Medical History Possible right UPJ obstruction Surgical History hysterectomy 2013 Surgical History breast biopsy right Surgical History section Surgical History cholecystectomy Surgical History josef tubes and ovaries adhesions 2018 Surgical History tubal ligation Surgical History cysto with stent placement 06/2021 Goals Section No Information Health Concerns No Information MEDICAL EQUIPMENT No Information MENTAL STATUS No Information FUNCTIONAL STATUS No Information ASSESSMENTS Encounter Date Diagnosis Assessment Notes Treatment Notes Treatm ent Clinical Notes Jun, Gross hematuria (ICD-10 - R31.0) Jun, Hydronephrosis, right (ICD-10 - N13.30) PLAN OF TREATMENT Next Appt Details After her Lasix renal scan Reason:Possib le right UPJ obstruction Provider Name:Gerardo Luong, 2021-07-2 9 10:45:00 AM, [address], , [place], [address], Follow Up:After her Lasix renal scanPossible right UPJ obstruction Insurance Providers Payer Name Payer Address Payer Phone Insured Name Patient Relati onship to Insured Coverage Start Date Coverage End Date BCFELIC[employer]O BAILEY PPO [phone] [facility] [place] [address] LAVON LAWS
--- OUTSIDE RECORDS SUMMARY | 2021-08-20 06:03 | CCD ---
Author Author [facility] Organization [facility] Address Unknown Phone Unavailable Care Team Providers Care Wood Boatbuilder Apprentice Name Role Phone Ag Gerardo Unavailable PROBLEMS Type Condition ICD9-CM Code [id number] Code Onset Dates Condition S tatus W/U Status Risk SNOMED Code Notes Problem Obstruction of kidney N28.89 Active confirmed [id number] ALLERGIES Allergen (clinical drug ingredient) Drug/Non Drug Allergy do cumented on EMR Reaction Allergy Type Onset Date Status Sulfasalazine Sulfa Antibiotics Rash Drug Allergy Ac tive metronidazole Flagyl([facility] Code:[address]-86) Rash Drug Allergy Active ENCOUNTERS from 1978 to 2021-08-11 Encounter Location Date Provider Diagnosis [facility] Urology [address] [phone] [place] [address] Aug, Gerardo Luong IMMUNIZATIONS No Information SOCIAL HISTORY Tobacco Use: [...] MG 1 tablet Orally 1 Jun, Not-Taking Multivitamin - 1 tablet Orally Once a day for 30 day(s) Active Oxybutynin Chloride ER 10 MG 1 tablet Orally Once a day for 30 day(s) Not-Taking Ciprofloxacin HCl 500 MG 1 tablet Orally as directed- 1 hour prior to cystoscopy Jun, Not-Taking PROCEDURES No Information RESULTS No Results REASON FOR VISIT clots MEDICAL (GENERAL) HISTORY Type Description Date Medical History Possible right UPJ obstruction Medical History Gross hematuria Surgical History hysterectomy 2012 Surgical History breast biopsy right Surgical History section Surgical History cholecystectomy Surgical History josef tubes and ovaries adhesions 2018 Surgical History tubal ligation Surgical History cysto with stent placement 06/2021 Goals Section No Information Health Concerns No Information MEDICAL EQUIPMENT No Information MENTAL STATUS No Information FUNCTIONAL STATUS No Information ASSESSMENTS No Information PLAN OF TREATMENT Next Appt Details Provider Name:Gerardo Luong, 2021-09-0 8 08:30:00 AM, [address], , [place], [address], Insurance Providers Payer Name Payer Address Payer Phone Insured Name Patient Relati onship to Insured Coverage Start Date Coverage End Date [facility] [phone] [email or web address] [id number] LAVON LAWS self
--- OUTSIDE RECORDS SUMMARY | 2021-08-20 06:03 | CCD ---
Author Author [facility] Organization [facility] Address Unknown Phone Unavailable Care Team Providers Care Central Office Frame Wirer Name Role Phone VannessaGerardo lucas Unavailable PROBLEMS Type Condition ICD9-CM Code [id number] Code Onset Dates Condition S tatus W/U Status Risk SNOMED Code Notes Problem Obstruction of kidney N28.89 Active confirmed [id number] ALLERGIES Allergen (clinical drug ingredient) Drug/Non Drug Allergy do cumented on EMR Reaction Allergy Type Onset Date Status Sulfasalazine Sulfa Antibiotics Rash Drug Allergy Ac tive metronidazole Flagyl([facility] Code:[address]-60) Rash Drug Allergy Active ENCOUNTERS from 1978 to 2021-08-05 Encounter Location Date Provider Diagnosis [facility] Urology [address] [phone] [place] [address] Jul, Gerardo Luong Gross hematuria R31.0 ; Right flank pain R10.9 ; Hydronephrosis, right N13.30 and Obstruction of kidney N28.89 IMMUNIZATIONS No Information SOCIAL HISTORY Tobacco Use: Social History Observation Description Date Details (start date - stop date) Current Smoker Sex Assigned At : Social History Observation Description Sex Assigned At Unknown Tobacco Use: Question Answer Notes Are you a: current smoker Are you interested in quitting? smokes a little REASON FOR REFERRAL No Information VITAL SIGNS Weight 96 lbs Jul, Height 59 in Jul, BMI 19.39 kg/m2 Jul, Heart Rate 84 /min Jul, Respiratory Rate 18 /min Jul, Temperature 97.7 degrees Fahrenheit Jul, Oximetry 98 Jul, Blood pressure systolic 112 mm Hg Jul, Blood pressure diastolic 68 mm Hg Jul, MEDICATIONS Medication SIG (Take, Route, Frequency, Duration) [...] Information RESULTS No Results REASON FOR VISIT f/u w/ kidney imaging MEDICAL (GENERAL) HISTORY Type Description Date Medical [...] Treatment Notes Treatm ent Clinical Notes Jul, Gross hematuria (ICD-10 - R31.0) Jul, Right flank pain (ICD-10 - R10.9) Jul, Hydronephrosis, right (ICD-10 - N13.30) Jul, Obstruction of kidney (ICD-10 - N28.89) PLAN OF TREATMENT Treatment Notes Test Name Order Date Comprehensive Metabolic Profile (CMP) 2021-08-04 CBC - Complete Blood Count 2021-08-04 URINE CULTURE 2021-08-04 [facility] Chest, 2 view (PA\Lat) 2021-08-04 Electrocardiogram (EKG) 2021-08-04 Next Appt Details Surgery Reason:Gross hematuria Follow Up:SurgeryGross hematuria Insurance Providers Payer Name Payer Address Payer Phone Insured Name Patient Relati onship to Insured Coverage Start Date Coverage End Date BCBS [place] WATN PPO [phone] [facility] [employer] [place] [address] LAVON LAWS self
--- OUTSIDE RECORDS SUMMARY | 2021-08-20 06:03 | CCD ---
Author Author [facility] Organization [facility] [facility] [facility] Address Unknown Phone Unavailable Care Team Providers Care Tin Dipper Name Role Phone Eldonmaryam Gerardo Unavailable PROBLEMS No Information ALLERGIES Allergen (clinical drug ingredient) Drug/Non Drug Allergy do cumented on EMR Reaction Allergy Type Onset Date Status Sulfasalazine Sulfa Antibiotics Rash Drug Allergy Ac tive metronidazole Flagyl([facility] Code:[address]-55) Rash Drug Allergy Active ENCOUNTERS from 1978 to 2021-07-01 Encounter Location Date Provider Diagnosis [facility] Urology [address] [phone] [place] [address] Jun, Gerardo Luong IMMUNIZATIONS No Information SOCIAL HISTORY [...] Information RESULTS No Results REASON FOR VISIT 07/02/2021 appt MEDICAL (GENERAL) HISTORY Type Description Date Surgical History hysterectomy 2013 Surgical History breast biopsy right Surgical History section Surgical History cholecystectomy Surgical History josef tubes and ovaries adhesions 2019 Surgical History tubal ligation Goals Section No Information Health Concerns No Information MEDICAL EQUIPMENT No Information MENTAL STATUS No Information FUNCTIONAL STATUS No Information ASSESSMENTS No Information PLAN OF TREATMENT Medication Medication Name Sig Start Date Stop Date Ciprofloxacin HCl 500 MG 1 tablet Orally as directed- 1 hour prior to cystoscopy Jun, Next Appt Details Provider Name:Gerardo Luong, 2021-06- 7 02:30:00 PM, [address], , [place], [address], Insurance Providers Payer Name Payer Address Payer Phone Insured Name Patient Relati onship to Insured Coverage Start Date Coverage End Date BCBS [place] WAT[place] PPO [phone] [facility] [place] [address] LAVON LAWS self
--- OUTSIDE RECORDS SUMMARY | 2021-08-20 06:03 | CCD ---
Author Author [facility] Organization [facility] Address Unknown Phone Unavailable Care Team Providers Care Apparel Cutter Name Role Phone EldonGerardo francisco Unavailable PROBLEMS Type Condition ICD9-CM Code [id number] Code Onset Dates Condition S tatus W/U Status Risk SNOMED Code Notes Problem Obstruction of kidney N28.89 Active confirmed [id number] ALLERGIES Allergen (clinical drug ingredient) Drug/Non Drug Allergy do cumented on EMR Reaction Allergy Type Onset Date Status Sulfasalazine Sulfa Antibiotics Rash Drug Allergy Ac tive metronidazole Flagyl([facility] Code:[address]-07) Rash Drug Allergy Active ENCOUNTERS from 1978 to 2021-08-18 Encounter Location Date Provider Diagnosis [facility] [address] [phone] [place] [address] Aug, Gerardo Luong Gross hematuria R31.0 IMMUNIZATIONS No Information SOCIAL [...] Orally Once a day for 10 day(s) Not-Parnav ing Diflucan 150 MG 1 tablet Orally 1 Jun, Not-Taking Multivitamin - 1 tablet Orally Once a day for 30 day(s) Active Oxybutynin Chloride ER 10 MG 1 tablet Orally Once a day for 30 day(s) Not-Taking Ciprofloxacin HCl 500 MG 1 tablet Orally as directed- 1 hour prior to cystoscopy Jun, Not-Taking PROCEDURES No Information RESULTS No Results REASON FOR VISIT No Information MEDICAL (GENERAL) HISTORY Type Description Date Medical History Possible right UPJ obstruction Medical History Gross hematuria Surgical History hysterectomy 2013 Surgical History breast [...] Notes Treatment Notes Treatm ent Clinical Notes Aug, Gross hematuria (ICD-10 - R31.0) PLAN OF TREATMENT Treatment Notes Test Name Order Date CT ABD & Pelvis w/o FOL by ELINOR 2021-08-17 Next Appt Details Provider Name:Gerardo Montelongo Ag, 8 08:30:00 AM, [address], , [place], [address], Insurance Providers Payer Name Payer Address Payer Phone Insured Name Patient Relati onship to Insured Coverage Start Date Coverage End Date BCBS [place] P[place] [phone] [facility] [place] [id number] [place] [employer] self
--- OUTSIDE RECORDS SUMMARY | 2021-08-20 06:03 | CCD | Continuity of Care Document ---
Author Author Amy MURCIA [employer] Organization Unknown Address [address] [place] [address] [address] [place] [address] Phone [phone] Care Team Providers Care Brand Protection Manager Name Role Phone Yoselin Can ([place]) AUTM Aide Carrillo MD - Orthopedic AUTM [phone] Yoselin Can M.D. AUTM [phone] Stacy Murcia [employer] SUPER[employer] AUTM [phone] Problems Active Problems Provider Date Raynaud's disease [...] CPT Code Status Date Vaccine Lot # [id number] Given 08/19/2020 Influenza Virus Vaccine, Quadrivalent ([id number]), Derived From 7 Given 07/14/2014 Adacel (Tdap) Injection Vital Signs [...] Note Sars-CoV+Sars-CoV-2 Ag Resp Ql Ia.rapid 06/28/2021 [facility] Cepheid Sars/Flu/RSV RT-PCR (SEE NOTE) 1, 2 CBC With Auto [facility] # Bld Auto [...] diff Bld NO Comprehensive Metabolic Prof 06/28/2021 [facility] BUN SerPl-mCnc 9 mg/dL Normal 9-23 [...] SerPl-mCnc 7.2 g/dL Normal 5.7-8.2 PT/PTT 06/28/2021 [facility] Prothrombin Time (Patient) 10.8 s Normal 9.6-12.3 Inr 1.0 Normal 0.9-1.1 3 Screen aPTT 26.2 s Normal 22.7-31.6 Ua dipstick Pnl Ur Strip.auto 06/28/2021 [facility] Color Ur RED Appearance Ur CLOUDY Abnormal [...] <SEE NOTE> 4 Urinalysis W/ Microscopic 06/28/2021 [facility] RBC # Ur Manual 51-100 [facility] High 0-5 WBC # Ur Manual 2-4 [facility] 0-5 Cells UrnS Micro FEW Bacteria UrnS Ql Micro [place] High Negative Laboratory test finding 06/28/2021 [facility] Bacteria identified in Urine by Culture No growth Laboratory test finding 06/09/2021 [facility] ( )- - Coronavirus (Sars-Cov-2),Dina [...] developed and its performance characteristics determined by [employer]. Nucleic acid amplification tests include RT-PCR and [...] (not detected) result in this assay. RN-[facility] [address] [id number] Procedures Date Code Description Status 08/11/2020 [id number] Mammogram Completed Medical Devices Description No Information [...] tobacco/e-cigarettes Find ways to deal with stress Whitney teeth twice daily; floss once daily See dentist twice per year Drink water Be physically active 30 minutes per day Get enough sleep Call with any further questions or concerns. Functional Status Description No Information Available Mental Status Description No Information Available Referrals Description No Information Available
--- OUTSIDE RECORDS SUMMARY | 2021-08-20 06:05 | CCD ---
Author Author [facility] Organization [facility] Address Unknown Phone Unavailable Care Team Providers Care [employer] Name Role Phone DELGADO CLEVELAND DO NOT Unavailable Unavailable Thien Ramirez PA-C Unavailable Unavailable Thien Ramirez PA-C Unavailable Unavailable Sera Bunn MD Unavailable Unavailable Aldo, P Keo PA Unavailable Unavailable Aldo, P Keo PA Unavailable Unavailable [place], P Keo PA Unavailable Unavailable Aldo, P Keo PA Unavailable Unavailable Aldo, P Keo PA Unavailable Unavailable [place], P Keo PA Unavailable Unavailable Aldo, P Keo PA Unavailable Unavailable Aldo, P Keo PA Unavailable Unavailable Aldo, P Keo PA Unavailable Unavailable Aldo, P Keo PA Unavailable Unavailable [place], P Keo PA Unavailable Unavailable [place], P Keo PA Unavailable Unavailable Aldo, P Keo PA Unavailable Unavailable [place], P Keo PA Unavailable Unavailable [place], P Keo PA Unavailable Unavailable [place], P Keo PA Unavailable Unavailable JAXSON, E MARISA LITIGATION EXAMINER Unavailable Unavailable JAXSON, E MARSIA LITIGATION EXAMINER Unavailable Unavailable JAXSON, E MARISA LITIGATION EXAMINER Unavailable Unavailable JAXSON, E MARISA LITIGATION EXAMINER Unavailable Unavailable JAXSON, E MARISA LITIGATION EXAMINER Unavailable Unavailable JAXSON, E MARISA LITIGATION EXAMINER Unavailable Unavailable JAXSON, E MARISA LITIGATION EXAMINER Unavailable Unavailable JAXSON, E MARISA LITIGATION EXAMINER Unavailable Unavailable JAXSON, E MARISA LITIGATION EXAMINER Unavailable Unavailable JAXSON, E MARISA LITIGATION EXAMINER Unavailable Unavailable JAXSON, E MARISA LITIGATION EXAMINER Unavailable Unavailable JAXSON, E MARISA LITIGATION EXAMINER Unavailable Unavailable JAXSON, E MARISA LITIGATION EXAMINER Unavailable Unavailable JAXSON, E MARISA LITIGATION EXAMINER Unavailable Unavailable JAXSON, E MARISA LITIGATION EXAMINER Unavailable Unavailable JAXSON, E MARISA LITIGATION EXAMINER Unavailable Unavailable JAXSON, E MARISA LITIGATION EXAMINER Unavailable Unavailable JAXSON, E MARISA LITIGATION EXAMINER Unavailable Unavailable JAXSON, E MARISA LITIGATION EXAMINER Unavailable Unavailable JAXSON, E MARISA LITIGATION EXAMINER Unavailable Unavailable JAXSON, E MARISA LITIGATION EXAMINER Unavailable Unavailable JAXSON, E MARISA LITIGATION EXAMINER Unavailable Unavailable JAXSON, E MARISA LITIGATION EXAMINER Unavailable Unavailable JAXSON, E MARISA LITIGATION EXAMINER Unavailable Unavailable JAXSON, E MARISA LITIGATION EXAMINER Unavailable Unavailable JAXSON, E MARISA LITIGATION EXAMINER Unavailable Unavailable JAXSON, E MARISA LITIGATION EXAMINER Unavailable Unavailable JAXSON, E MARISA LITIGATION EXAMINER Unavailable Unavailable JAXSON, E MARISA LITIGATION EXAMINER Unavailable Unavailable JAXSON, E MARISA LITIGATION EXAMINER Unavailable Unavailable JAXSON, E MARISA LITIGATION EXAMINER Unavailable Unavailable JAXSON, E MARISA LITIGATION EXAMINER Unavailable Unavailable JAXSON, E MARISA LITIGATION EXAMINER Unavailable Unavailable JAXSON, E MARISA LITIGATION EXAMINER Unavailable Unavailable JAXSON, E MARISA LITIGATION EXAMINER Unavailable Unavailable JAXSON, E MARISA LITIGATION EXAMINER Unavailable Unavailable JAXSON, E MARISA LITIGATION EXAMINER Unavailable Unavailable JAXSON, E MARISA LITIGATION EXAMINER Unavailable Unavailable JAXSON, E MARISA LITIGATION EXAMINER Unavailable Unavailable JAXSON, E MARISA LITIGATION EXAMINER Unavailable Unavailable JAXSON, E MARISA LITIGATION EXAMINER Unavailable Unavailable JAXSON, E MARISA LITIGATION EXAMINER Unavailable Unavailable JAXSON, E MARISA LITIGATION EXAMINER Unavailable Unavailable JAXSON, E MARISA LITIGATION EXAMINER Unavailable Unavailable JAXSON, E MARISA LITIGATION EXAMINER Unavailable Unavailable JAXSON, E MARISA LITIGATION EXAMINER Unavailable Unavailable JAXSON, E MARISA LITIGATION EXAMINER Unavailable Unavailable JAXSON, E MARISA LITIGATION EXAMINER Unavailable Unavailable JAXSON, E MARISA LITIGATION EXAMINER Unavailable Unavailable JAXSON, E MARISA LITIGATION EXAMINER Unavailable Unavailable JAXSON, E MARISA LITIGATION EXAMINER Unavailable Unavailable JAXSON, E MARISA LITIGATION EXAMINER Unavailable Unavailable JAXSON, E MARISA LITIGATION EXAMINER Unavailable Unavailable Lim, L Nay WET PROCESS HEAD MILLER Unavailable Unavailable Lim, L Nay WET PROCESS HEAD MILLER Unavailable Unavailable Lim, L Nay WET PROCESS HEAD MILLER Unavailable Unavailable Lim, L Nay WET PROCESS HEAD MILLER Unavailable Unavailable Lim, L Nay WET PROCESS HEAD MILLER Unavailable Unavailable Lim, L Nay WET PROCESS HEAD MILLER Unavailable Unavailable Lim, L Nay WET PROCESS HEAD MILLER Unavailable Unavailable Lim, L Nay WET PROCESS HEAD MILLER Unavailable Unavailable Lim, L Nay WET PROCESS HEAD MILLER Unavailable Unavailable Lim, L Nay WET PROCESS HEAD MILLER Unavailable Unavailable Lim, L Nay WET PROCESS HEAD MILLER Unavailable Unavailable Lim, L Nay WET PROCESS HEAD MILLER Unavailable Unavailable Lim, L Nay WET PROCESS HEAD MILLER Unavailable Unavailable Lim, L Nay WET PROCESS HEAD MILLER Unavailable Unavailable Lim, L Nay WET PROCESS HEAD MILLER Unavailable Unavailable Lim, L Nay WET PROCESS HEAD MILLER Unavailable Unavailable Lim, L Nay WET PROCESS HEAD MILLER Unavailable Unavailable Lim, L Nay WET PROCESS HEAD MILLER Unavailable Unavailable Lim, L Nay WET PROCESS HEAD MILLER Unavailable Unavailable Lim, L Nay WET PROCESS HEAD MILLER Unavailable Unavailable Lim, L Nay WET PROCESS HEAD MILLER Unavailable Unavailable Lim, L Nay WET PROCESS HEAD MILLER Unavailable Unavailable Lim, L Nay WET PROCESS HEAD MILLER Unavailable Unavailable Lim, L Nay WET PROCESS HEAD MILLER Unavailable Unavailable Lim, L Nay WET PROCESS HEAD MILLER Unavailable Unavailable Lim, L Nay WET PROCESS HEAD MILLER Unavailable Unavailable Lim, L Nay WET PROCESS HEAD MILLER Unavailable Unavailable Lim, L Nay WET PROCESS HEAD MILLER Unavailable Unavailable Lim, L Nay WET PROCESS HEAD MILLER Unavailable Unavailable Lim, L Nay WET PROCESS HEAD MILLER Unavailable Unavailable Lim, L Nay WET PROCESS HEAD MILLER Unavailable Unavailable Lim, L Nay WET PROCESS HEAD MILLER Unavailable Unavailable Lim, L Nay WET PROCESS HEAD MILLER Unavailable Unavailable Lim, L Nay WET PROCESS HEAD MILLER Unavailable Unavailable Lim, L Nay WET PROCESS HEAD MILLER Unavailable Unavailable Lim, L Nay WET PROCESS HEAD MILLER Unavailable Unavailable Lim, L Nay WET PROCESS HEAD MILLER Unavailable Unavailable Lim, L Nay WET PROCESS HEAD MILLER Unavailable Unavailable Lim, L Nay WET PROCESS HEAD MILLER Unavailable Unavailable Lim, L Nay WET PROCESS HEAD MILLER Unavailable Unavailable Lim, L Nay WET PROCESS HEAD MILLER Unavailable Unavailable Lim, L Nay WET PROCESS HEAD MILLER Unavailable Unavailable [place], Lori WET PROCESS HEAD MILLER Unavailable Unavailable JAXSON, E MARISA LITIGATION EXAMINER Unavailable Unavailable JAXSON, E MARISA LITIGATION EXAMINER Unavailable Unavailable JAXSON, E MARISA LITIGATION EXAMINER Unavailable Unavailable JAXSON, E MARISA LITIGATION EXAMINER Unavailable Unavailable JAXSON, E MARISA LITIGATION EXAMINER Unavailable Unavailable JAXSON, E MARISA LITIGATION EXAMINER Unavailable Unavailable JAXSON, E MARISA LITIGATION EXAMINER Unavailable Unavailable JAXSON, E MARISA LITIGATION EXAMINER Unavailable Unavailable JAXSON, E MARISA LITIGATION EXAMINER Unavailable Unavailable JAXSON, E MARISA LITIGATION EXAMINER Unavailable Unavailable JAXSON, E MARISA LITIGATION EXAMINER Unavailable Unavailable JAXSON, E MARISA LITIGATION EXAMINER Unavailable Unavailable JAXSON, E MARISA LITIGATION EXAMINER Unavailable Unavailable JAXSON, E MARISA LITIGATION EXAMINER Unavailable Unavailable JAXSON, E MARISA LITIGATION EXAMINER Unavailable Unavailable JAXSON, E MARISA LITIGATION EXAMINER Unavailable Unavailable JAXSON, E MARISA LITIGATION EXAMINER Unavailable Unavailable JAXSON, E MARISA LITIGATION EXAMINER Unavailable Unavailable JAXSON, E MARISA LITIGATION EXAMINER Unavailable Unavailable JAXSON, E MARISA LITIGATION EXAMINER Unavailable Unavailable JAXSON, E MARISA LITIGATION EXAMINER Unavailable Unavailable JAXSON, E MARISA LITIGATION EXAMINER Unavailable Unavailable JAXSON, E MARISA LITIGATION EXAMINER Unavailable Unavailable JAXSON, E MARISA LITIGATION EXAMINER Unavailable Unavailable JAXSON, E MARISA LITIGATION EXAMINER Unavailable Unavailable JAXSON, E MARISA LITIGATION EXAMINER Unavailable Unavailable JAXSON, E MARISA LITIGATION EXAMINER Unavailable Unavailable JAXSON, E MARISA LITIGATION EXAMINER Unavailable Unavailable JAXSON, E MARISA LITIGATION EXAMINER Unavailable Unavailable JAXSON, E MARISA LITIGATION EXAMINER Unavailable Unavailable JAXSON, E MARISA LITIGATION EXAMINER Unavailable Unavailable JAXSON, E MARISA LITIGATION EXAMINER Unavailable Unavailable JAXSON, E MARISA LITIGATION EXAMINER Unavailable Unavailable JAXSON, E MARISA LITIGATION EXAMINER Unavailable Unavailable JAXSON, E MARISA LITIGATION EXAMINER Unavailable Unavailable JAXSON, E MARISA LITIGATION EXAMINER Unavailable Unavailable JAXSON, E MARISA LITIGATION EXAMINER Unavailable Unavailable JAXSON, E MARISA LITIGATION EXAMINER Unavailable Unavailable JAXSON, E MARISA LITIGATION EXAMINER Unavailable Unavailable JAXSON, E MARISA LITIGATION EXAMINER Unavailable Unavailable JAXSON, E MARISA LITIGATION EXAMINER Unavailable Unavailable JAXSON, E MARISA LITIGATION EXAMINER Unavailable Unavailable JAXSON, E MARISA LITIGATION EXAMINER Unavailable Unavailable JAXSON, E MARISA LITIGATION EXAMINER Unavailable Unavailable JAXSON, E MARISA LITIGATION EXAMINER Unavailable Unavailable JAXSON, E MARISA LITIGATION EXAMINER Unavailable Unavailable JAXSON, E MARISA LITIGATION EXAMINER Unavailable Unavailable JAXSON, E MARISA LITIGATION EXAMINER Unavailable Unavailable JAXSON, E MARISA LITIGATION EXAMINER Unavailable Unavailable JAXSON, E MARISA LITIGATION EXAMINER Unavailable Unavailable JAXSON, E MARISA LITIGATION EXAMINER Unavailable Unavailable JAXSON, E MARISA LITIGATION EXAMINER Unavailable Unavailable JAXSON, E MARISA LITIGATION EXAMINER Unavailable Unavailable MD CHESTER HUERTA MD Unavailable Unavailable Parra, LITIGATION EXAMINER Noemi Unavailable Unavailable Re-disclosure Warning The records that you are about to access may contain information from federally-assisted alcohol or drug abuse programs. If such information is present, then the following federally mandated warning applies: This information has been disclosed to you from records protected by federal confidentiality rules (42 CFR part 2). The federal rules prohibit you from making any further disclosure of this information unless further disclosure is expressly permitted by the written consent of the person to whom it pertains or as otherwise permitted by 42 CFR part 2. A general authorization for the release of medical or other information is NOT sufficient for this purpose. The Federal rules restrict any use of the information to criminally investigate or prosecute any alcohol or drug abuse patient.The records that you are about to access may contain highly sensitive health information, the redisclosure of which is protected by Article 27-F of the [place] [facility] Public Health law. If you continue you may have access to information: Regarding HIV / AIDS; Provided by facilities licensed or operated by the [facility] Office of Mental Health; or Provided by the [facility] Office for People With Developmental Disabilities. If such information is present, then the following [facility] mandated warning applies: This information has been disclosed to you from confidential records which are protected by state law. State law prohibits you from making any further disclosure of this information without the specific written consent of the person to whom it pertains, or as otherwise permitted by law. Any unauthorized further disclosure in violation of state law may result in a fine or fdc sentence or both. A general authorization for the release of medical or other information is NOT sufficient authorization for further disc losure. Allergies and Adverse Reactions Type Description Substance Reaction Status Data Source(s ) Drug allergy sulfacetamide sulfacetamide Rash [facility] Drug allergy metronidazole metronidazole NAUSEA AND VOMITING AND RASH [facility] Drug allergy Sulfa (Sulfonamide Antibiotics) Sulfa (Sulfonami de Antibiotics) Rash [facility] Family History Family Member Name Family Member Gender Family Member Status Date o f Status Description Data Source(s) Unknown Condition [facility] Unknown Condition [facility] Unknown Condition [facility] Unknown Condition [facility] Unknown Condition [facility] Unknown Condition [facility] Unknown Female Problem [facility] ([facility]) Unknown Female Problem [facility] ([facility]) Encounters Encounter Providers Location Date Indications Data Source(s ) Outpatient Attender: MD CHESTER HUERTA MDAdmitter: MD CHESTER HUERTA MD OP-OP 08/18/2021 11:39:00 AM EDT - 08/18/2021 11:59:[address] [facility] Patient discharged. [place] [address] [address] 08/17/2021 12:00:00 AM EDT [facility]CW1 ([facility]) Outpatient Attender: MD CHESTER HUERTA MDAdmitter: MD CHESTER HUERTA MD OP-OT 08/16/2021 10:29:00 AM EDT - 08/16/2021 11:59:[address] [facility] Patient discharged. [place] [address] [address] 08/09/2021 12:00:00 AM EDT eCW1 ([facility]) [place] [address] [address] 08/04/2021 12:00:00 AM EDT eCW1 ([facility]) Outpatient Attender: MD CHESTER Neumann DAttender: NOT DR DOAdmitter: MD CHESTER HUERTA MD OP-OP 07/27/2021 11:04:00 AM EDT - 07/27/2021 11:59:[address] [facility] Patient discharged. [place] [address] [address] 07/20/2021 12:00:00 AM EDT [facility] [place] [address] [address] 07/06/2021 12:00:00 AM EDT [facility] [place] [address] [address] 07/05/2021 12:00:00 AM EDT [facility]CW1 ([facility] Emergency Attender: Sera Bunn MD 07/02/2021 01:59:00 AM EDT - 07/02/2021 05:26:00 AM EDT SIDE PAIN,URINATING BLOOD [facility] SIDE PAIN,URINATING BLOOD Patient discharged. [place] [address] [address] 07/02/2021 12:00:00 AM EDT eCW1 ([facility]) [place] [address] [address] 06/30/2021 12:00:00 AM EDT eCW1 ([facility]) [place] [address] [address] 06/30/2021 12:00:00 AM EDT eCW1 ([facility]) Emergency Attender: Hari Ramirez PA-C 07:48:00 PM EDT - 06/29/2021 01:20:00 AM EDT BLOOD CLOTS IN URINE [facility] BLOOD CLOTS IN URINE Patient discharged. Outpatient Attender: Keo Guzmanender: Lori Borrero WET PROCESS HEAD MILLER 06/25/2021 03:57:06 PM EDT - 06/25/2021 04:55:59 PM EDT [facility] ( [facility]) Outpatient Attender: MARISA PURI FNPAdmitter: MARISA LANDA OP-OP 06/09/2021 11:44:00 AM EDT - 06/09/2021 11:59:[address] [facility] Patient discharged. Outpatient Attender: MARISA PURI FNPAdmitter: MARISA LANDA OP-BF 08/19/2020 09:17:00 AM EDT - 08/19/2020 11:59:[address] [facility] Patient discharged. Outpatient Attender: MARISA LANDA [facility] 08/19/2020 09:15:00 AM EDT [facility] ([facility]) Outpatient Attender: Noemi Parra 07/30/2020 03:24:00 PM EDT N94.89 [facility] N94.89 Outpatient Attender: Noemi ParraReferrer: Nay Lim NP 07/30/2020 11:30:00 AM EDT - 07/30/2020 12:22:00 PM EDT [facility] Immunizations Vaccine Date Status Description Data Source(s) Influenza Virus Vaccine, Quadrivalent (Cciiv4), Derive d From Cell 08/19/2020 09:29:00 AM EDT completed [facility] ([facility]) Medications Medication Brand Name Start Date Product Form Dose Route Admi nistrative Instructions Pharmacy Instructions Status Indications Reaction Description Data Source(s) 150 mg 07/05/2021 12:00:00 AM EDT tablet 1 TAKE ONE TABLET BY MOUTH ONCE TAKE ONE TABLET BY MOUTH ONCE SOLD: 07/05/2021 [facility] 300 mg 07/05/2021 12:00:00 AM EDT capsule 10 TAKE ONE CAPSULE BY MOUTH TWICE A DAY TAKE ONE CAPSULE BY MOUTH TWICE A DAY SOLD: 07/05/2021 [facility] 200 mg 07/05/2021 12:00:00 AM EDT tablet 9 TAKE ONE TABLET BY MOUTH THREE TIMES A DAY FOR URINARY DISCOMFORT TAKE ONE TABLET BY MOUTH THREE TIMES A D AY FOR URINARY DISCOMFORT SOLD: 07/05/2021 [facility] Fluconazole 150 MG Oral Tablet [Diflucan] Diflucan 150 MG Di flucan 150 MG 07/02/2021 12:00:00 AM EDT 1.0 {tablet} active Diflucan 150 MG eCW1 ([facility]) Fluconazole 150 MG Oral Tablet [Diflucan] Diflucan 150 MG Di flucan 150 MG 07/02/2021 12:00:00 AM EDT 1.0 {tablet} suspended Diflucan 150 MG eCW1 ([facility]) 500 mg 07/02/2021 12:00:00 AM EDT tablet 7 TAKE ONE TABLET BY MOUTH EVERY DAY TAKE ONE TABLET BY MOUTH EVERY DAY SOLD: 07/02/2021 [facility] 4 mg 07/02/2021 12:00:00 AM EDT tablet 10 TAKE ONE TABLET BY MOUTH EVERY 8 HOURS NEEDED FOR NAUSEA AND VOMITING TAKE ONE TABLET BY MOUTH EVERY 8 HOURS NEEDED FOR NAUSEA AND VOMITING SOLD: 07/02/2021 [facility] Fluconazole 150 MG Oral Tablet [Diflucan] Diflucan 150 MG Di flucan 150 MG 07/02/2021 12:00:00 AM EDT 1.0 {tablet} suspended Diflucan 150 MG eCW1 ([facility]) Fluconazole 150 MG Oral Tablet [Diflucan] Diflucan 150 MG Di flucan 150 MG 07/02/2021 12:00:00 AM EDT 1.0 {tablet} suspended Diflucan 150 MG eCW1 ([facility]) Fluconazole 150 MG Oral Tablet [Diflucan] Diflucan 150 MG Di flucan 150 MG 07/02/2021 12:00:00 AM EDT 1.0 {tablet} suspended Diflucan 150 MG eCW1 ([facility]) Fluconazole 150 MG Oral Tablet [Diflucan] Diflucan 150 MG Di flucan 150 MG 07/02/2021 12:00:00 AM EDT 1.0 {tablet} active Diflucan 150 MG eCW1 ([facility]) Fluconazole 150 MG Oral Tablet [Diflucan] Diflucan 150 MG Di flucan 150 MG 07/02/2021 12:00:00 AM EDT 1.0 {tablet} suspended Diflucan 150 MG eCW1 ([facility]) Ciprofloxacin 500 MG Oral Tablet Ciprofloxacin HCl 500 MG Ciprofloxacin HCl 500 MG 06/30/2021 12:00:00 AM EDT 1.0 {tablet} suspe nded Ciprofloxacin HCl 500 MG eCW1 ([facility]) 500 mg 06/30/2021 12:00:00 AM EDT tablet 1 TAKE ONE TABLET BY MOUTH ONE HOUR PRIOR TO CYSTOSCOPY TAKE ONE TABLET BY MOUTH ONE HOUR PRIOR TO CYSTOSCOPY SOLD: 07/01/2021 [facility] Ciprofloxacin 500 MG Oral Tablet Ciprofloxacin HCl 500 MG Ciprofloxacin HCl 500 MG 06/30/2021 12:00:00 AM EDT 1.0 {tablet} suspe nded Ciprofloxacin HCl 500 MG eCW1 ([facility]) Ciprofloxacin 500 MG Oral Tablet Ciprofloxacin HCl 500 MG Ciprofloxacin HCl 500 MG 06/30/2021 12:00:00 AM EDT 1.0 {tablet} activ e Ciprofloxacin HCl 500 MG eCW1 ([facility]) Ciprofloxacin 500 MG Oral Tablet Ciprofloxacin HCl 500 MG Ciprofloxacin HCl 500 MG 06/30/2021 12:00:00 AM EDT 1.0 {tablet} suspe nded Ciprofloxacin HCl 500 MG eCW1 ([facility]) Ciprofloxacin 500 MG Oral Tablet Ciprofloxacin HCl 500 MG Ciprofloxacin HCl 500 MG 06/30/2021 12:00:00 AM EDT 1.0 {tablet} suspe nded Ciprofloxacin HCl 500 MG eCW1 ([facility]) Ciprofloxacin 500 MG Oral Tablet Ciprofloxacin HCl 500 MG Ciprofloxacin HCl 500 MG 06/30/2021 12:00:00 AM EDT 1.0 {tablet} suspe nded Ciprofloxacin HCl 500 MG eCW1 ([facility]) Ciprofloxacin 500 MG Oral Tablet Ciprofloxacin HCl 500 MG Ciprofloxacin HCl 500 MG 06/30/2021 12:00:00 AM EDT 1.0 {tablet} activ e Ciprofloxacin HCl 500 MG eCW1 ([facility]) Ciprofloxacin 500 MG Oral Tablet Ciprofloxacin HCl 500 MG Ciprofloxacin HCl 500 MG 06/30/2021 12:00:00 AM EDT 1.0 {tablet} activ e Ciprofloxacin HCl 500 MG eCW1 ([facility]) Ciprofloxacin 500 MG Oral Tablet Ciprofloxacin HCl 500 MG Ciprofloxacin HCl 500 MG 06/30/2021 12:00:00 AM EDT 1.0 {tablet} activ e Ciprofloxacin HCl 500 MG eCW1 ([facility]) NITROFURANTOIN, MACROCRYSTALS 25 MG / Ni trofurantoin, Monohydrate 75 MG Oral Capsule Nitrofurantoin Monohyd/M-Cryst Nitrofurantoin Monohyd/M-Cryst 06/28/2021 09:09:17 PM EDT 100 MG active [facility] NITROFURANTOIN, MACROCRYSTALS 25 MG / Ni trofurantoin, Monohydrate 75 MG Oral Capsule 100 mg NITROFURANTOIN MONOHYD/M-CRYST 06/25/2021 12:00:00 AM EDT ca psule 14 TAKE ONE CAPSULE BY MOUTH TWICE A DAY FOR 7 DAYS TAKE ONE CAPSULE BY MOUTH TWICE A DAY FOR 7 DAYS SOLD: 06/25/2021 [employer] ([employer]) 168 HR Estradiol 0.15780 MG/HR Transdermal Patch Estradiol 11/11/2020 05:32:42 PM EST 0.[address] [facility] 168 HR Estradiol 0.84889 MG/HR Transdermal System 0.1 mg/24 hr ESTRADIOL 08/12/2020 12:00:00 AM EDT patch weekly 4 APPLY 1 PATCH FOR SYMPTOMATIC MENOPAUSE ONE TIME A WEEK APPLY 1 PATCH FOR SYMPTOMATIC MENOPAUSE ONE TIME A WEEK SOLD: 09/16/2020 [facility] 168 HR Estradiol 0.27660 MG/HR Transdermal System 0.1 mg/24 hr ESTRADIOL 08/12/2020 12:00:00 AM EDT patch weekly 4 APPLY 1 PATCH FOR SYMPTOMATIC MENOPAUSE ONE TIME A WEEK APPLY 1 PATCH FOR SYMPTOMATIC MENOPAUSE ONE TIME A WEEK SOLD: 08/19/2020 [facility] 168 HR Estradiol 0.92871 MG/HR Transdermal System 0.1 mg/24 hr ESTRADIOL 08/12/2020 12:00:00 AM EDT patch weekly 4 APPLY 1 PATCH FOR SYMPTOMATIC MENOPAUSE ONE TIME A WEEK APPLY 1 PATCH FOR SYMPTOMATIC MENOPAUSE ONE TIME A WEEK SOLD: 10/17/2020 [facility] 168 HR Estradiol 0.27750 MG/HR Transdermal Patch Estradiol 08/10/2020 09:37:24 AM EDT 0.[address] [facility] 300 mg 07/31/2020 12:00:00 AM EDT capsule 14 TAKE ONE CAPSULE BY MOUTH TWICE A DAY FOR 7 DAYS TAKE ONE CAPSULE BY MOUTH TWICE A DAY FOR 7 DAYS SOLD: 08/05/2020 [employer] ([employer]) Clindamycin 300 MG Oral Capsule Clindamycin Hcl Clindamycin Hcl 07/30/2020 04:05:02 PM EDT 300 MG completed [facility] 168 HR Estradiol 0.54191 MG/HR Transdermal System 0.1 mg/24 hr ESTRADIOL 05/12/2020 12:00:00 AM EDT patch weekly 4 APPLY ONE PATC H EVERY WEEK APPLY ONE PATCH EVERY WEEK SOLD: 07/16/2020 [facility] 168 HR Estradiol 0.00352 MG/HR Transdermal Patch Estradiol 05/11/2020 08:33:22 AM EDT 0.[address] [facility] Ibuprofen 800 MG Oral Tablet Ibuprofen (Ibu) 800 MG ta blet Ibuprofen (Ibu) 800 MG tablet 02/13/2019 12:24:41 PM EDT 800 MG completed [facility] Acetaminophen 325 MG / Oxycodone Hydroch loride 5 MG Oral Tablet Oxycodone/Acetaminophen (Percocet 5/325) 1 TAB tablet Oxycodone/Acetaminophen (Percocet 5/325) 1 TAB tablet 02/13/2019 12:23:27 PM EDT 1 TAB completed [facility] Insurance Providers Payer name Policy type / Coverage type Policy ID Covered republican ID Covered republican's relationship to stokes Policy [employer] Plan Information [employer] [place] [id number] SELF [id number] WORKMANS COMP EMPLOYER NOT PROVIDED EMPLOYEE NOT PROVIDED WORKMANS COMP INS UNAVAILABLE SELF UNAVAILABLE [facility] [id number] SELF [id number] [facility] [id number] SELF [id number] NO FAULT [id number] SELF [id number] [place] [id number] SELF [id number] [place] [facility] EXCHANGE [id number] SELF [id number] [employer] [facility] [id number] SELF [id number] [place] [id number] SELF [id number] WORKMANS COMP INS [id number] EMPLOYEE [id number] WORKMANS COMP INS [id number] EMPLOYEE [id number] WORKMANS COMP EMPLOYER [id number] SELF [id number] SELF PAY UNAVAILABLE SELF UNAVAILA BLE [place] (192) [id number] MEDICAID ([id number]) [id number] [employer] [id number] Self [id number] [employer] Compensation [id number] 2.16.840.1.446904.3.227.99.6968.606.0 Self 31 [id number] [employer] [id number] 2.16.840.1.392503.3.227.99.6968.606.0 Self 31 [id number] [employer] [id number] 2.16.840.1.809023.3.227.99.6968.606.0 Self 31 [id number] [employer] [id number] 2.16.840.1.555223.3.227.99.6968.606.0 Self 31 [id number] [employer] [id number] 2.16.840.1.712001.3.227.99.6968.606.0 Self 31 [id number] [employer] Compensation [id number] 2.16.840.1.031991.3.227.99.6968.606.0 Self 31 [id number] [employer] Compensation [id number] 2.16.840.1.448336.3.227.99.6968.606.0 Self 31 [id number] [employer] Compensation [id number] 2.16.840.1.282460.3.227.99.6968.606.0 Self 31 [id number] [employer] Compensation [id number] 2.16.840.1.003411.3.227.99.6968.606.0 Self 31 [id number] [employer] [id number] 2.16.840.1.386424.3.227.99.6968.606.0 Self 31 [id number] [employer] [id number] 2.16.840.1.729830.3.227.99.6968.606.0 Self 31 [id number] [employer] [id number] 2.16.840.1.899879.3.227.99.6968.606.0 Self 31 [id number] [employer] Compensation [id number] 2.16.840.1.869824.3.227.99.6968.606.0 Self 31 [id number] [employer] Compensation [id number] 2.16.840.1.365184.3.227.99.6968.606.0 Self 31 [id number] [employer] Compensation [id number] 2.16.840.1.502654.3.227.99.6968.606.0 Self 31 [id number] [employer] [id number] 2.16.840.1.010300.3.227.99.6968.606.0 Self 31 [id number] [employer] [id number] 2.16.840.1.505611.3.227.99.6968.606.0 Self 31 [id number] [employer] Compensation [id number] 2.16.840.1.131336.3.227.99.6968.606.0 Self 31 [id number] [employer] Compensation [id number] 2.16.840.1.496860.3.227.99.6968.606.0 Self 31 [id number] [employer] Compensation [id number] 2.16.840.1.145021.3.227.99.6968.606.0 Self 31 [id number] [employer] Compensation [id number] 2.16.840.1.129485.3.227.99.6968.606.0 Self 31 [id number] [employer] [id number] 2.16.840.1.375808.3.227.99.6968.606.0 Self 31 [id number] [employer] [id number] 2.16.840.1.681589.3.227.99.6968.606.0 Self 31 [id number] [employer] Compensation [id number] 2.16.840.1.796541.3.227.99.6968.606.0 Self 31 [id number] [employer] [id number] 2.16.840.1.491029.3.227.99.6968.606.0 Self 31 [id number] [employer] [id number] 2.16.840.1.978251.3.227.99.6968.606.0 Self 31 [id number] [employer] [id number] 2.16.840.1.212472.3.227.99.6968.606.0 Self 31 [id number] [employer] [id number] 2.16.840.1.882632.3.227.99.6968.606.0 Self 31 [id number] [employer] Compensation [id number] 2.16.840.1.121245.3.227.99.6968.606.0 Self 31 [id number] [employer] Compensation [id number] 2.16.840.1.092488.3.227.99.6968.606.0 Self 31 [id number] [employer] [id number] 2.16.840.1.943946.3.227.99.6968.606.0 Self 31 [id number] [employer] [id number] 2.16.840.1.866418.3.227.99.6968.606.0 Self 31 [id number] [employer] Compensation [id number] 2.16.840.1.482126.3.227.99.6968.606.0 Self 31 [id number] [employer] Compensation [id number] 2.16.840.1.560528.3.227.99.6968.606.0 Self 31 [id number] [employer] Compensation [id number] 2.16.840.1.074952.3.227.99.6968.606.0 Self 31 [id number] [employer] Compensation [id number] 2.16.840.1.751760.3.227.99.6968.606.0 Self 31 [id number] [employer] Compensation [id number] 2.16.840.1.827501.3.227.99.6968.606.0 Self 31 [id number] [employer] [id number] 2.16.840.1.739922.3.227.99.6968.606.0 Self 31 B08065H [employer] [id number] 2.16.840.1.571659.3.227.99.6968.606.0 Self 31 [id number] [employer] [id number] 2.16.840.1.604080.3.227.99.6968.606.0 Self 31 [id number] [employer] [id number] 2.16.840.1.355177.3.227.99.6968.606.0 Self 31 [id number] [employer] Compensation [id number] 2.16.840.1.046798.3.227.99.6968.606.0 Self 31 G42871Q [employer] Compensation [id number] 2.16.840.1.234977.3.227.99.6968.606.0 Self 31 [id number] [employer] [id number] 2.16.840.1.087601.3.227.99.6968.606.0 Self 31 [id number] [employer] Compensation [id number] 2.16.840.1.054526.3.227.99.6968.606.0 Self 31 [id number] [employer] Compensation [id number] 2.16.840.1.210534.3.227.99.6968.606.0 Self 31 [id number] [employer] Compensation [id number] 2.16.840.1.136919.3.227.99.6968.606.0 Self 31 [id number] [employer] Compensation [id number] 2.16.840.1.687989.3.227.99.6968.606.0 Self 31 S18855Q [employer] Compensation [id number] 2.16.840.1.753038.3.227.99.6968.606.0 Self 31 [id number] [employer] Compensation [id number] 2.16.840.1.083314.3.227.99.6968.606.0 Self 31 [id number] [employer] Compensation [id number] 2.16.840.1.231151.3.227.99.6968.606.0 Self 31 [id number] [employer] Compensation [id number] 2.16.840.1.906145.3.227.99.6968.606.0 Self 31 [id number] [employer] Compensation [id number] 2.16.840.1.625068.3.227.99.6968.606.0 Self 31 [id number] [employer] Compensation [id number] 2.16.840.1.640582.3.227.99.6968.606.0 Self 31 [id number] [employer] Compensation [id number] 2.16.840.1.828875.3.227.99.6968.606.0 Self 31 [id number] [employer] Compensation [id number] 2.16.840.1.634315.3.227.99.6968.606.0 Self 31 [id number] [employer] Compensation [id number] 2.16.840.1.907375.3.227.99.6968.606.0 Self 31 R39096S [employer] Compensation [id number] 2.16.840.1.576315.3.227.99.6968.606.0 Self 31 [id number] [employer] Compensation [id number] 2.16.840.1.362025.3.227.99.6968.606.0 Self 31 [id number] [employer] Compensation [id number] 2.16.840.1.091909.3.227.99.6968.606.0 Self 31 [id number] [employer] Compensation [id number] 2.16.840.1.888101.3.227.99.6968.606.0 Self 31 [id number] [employer] Compensation [id number] 2.16.840.1.546376.3.227.99.6968.606.0 Self 31 [id number] [employer] Compensation [id number] 2.16.840.1.076909.3.227.99.6968.606.0 Self 31 S24019G [employer] Compensation [id number] 2.16.840.1.816613.3.227.99.6968.606.0 Self 31 [id number] [employer] Compensation [id number] 2.16.840.1.501846.3.227.99.6968.606.0 Self 31 [id number] [employer] Compensation [id number] 2.16.840.1.810926.3.227.99.6968.606.0 Self 31 [id number] [employer] Compensation [id number] 2.16.840.1.398234.3.227.99.6968.606.0 Self 31 [id number] [employer] Compensation [id number] 2.16.840.1.039087.3.227.99.6968.606.0 Self 31 [id number] [employer] Compensation [id number] 2.16.840.1.676364.3.227.99.6968.606.0 Self 31 [id number] [employer] Compensation [id number] 2.16.840.1.344561.3.227.99.6968.606.0 Self 31 [id number] [employer] Compensation [id number] 2.16.840.1.709894.3.227.99.6968.606.0 Self 31 [id number] [employer] Compensation [id number] 2.16.840.1.352273.3.227.99.6968.606.0 Self 31 Z68867H [employer] Compensation [id number] 2.16.840.1.613142.3.227.99.6968.606.0 Self 31 [id number] [employer] Compensation [id number] 2.16.840.1.537876.3.227.99.6968.606.0 Self 31 [id number] [employer] Compensation [id number] 2.16.840.1.586383.3.227.99.6968.606.0 Self 31 [id number] [employer] Compensation [id number] 2.16.840.1.639744.3.227.99.6968.606.0 Self 31 [id number] [employer] Compensation [id number] 2.16.840.1.691912.3.227.99.6968.606.0 Self 31 [id number] [employer] Compensation [id number] 2.16.840.1.315867.3.227.99.6968.606.0 Self 31 [id number] [employer] Compensation [id number] 2.16.840.1.363047.3.227.99.6968.606.0 Self 31 [id number] [employer] Compensation [id number] 2.16.840.1.432704.3.227.99.6968.606.0 Self 31 [id number] [employer] Compensation [id number] 2.16.840.1.658350.3.227.99.6968.606.0 Self 31 [id number] [employer] Compensation [id number] 2.16.840.1.063094.3.227.99.6968.606.0 Self 31 [id number] [employer] Compensation [id number] 2.16.840.1.608453.3.227.99.6968.606.0 Self 31 [id number] [employer] Compensation [id number] 2.16.840.1.630669.3.227.99.6968.606.0 Self 31 [id number] [employer] Compensation [id number] 2.16.840.1.140376.3.227.99.6968.606.0 Self 31 [id number] [employer] Compensation [id number] 2.16.840.1.295325.3.227.99.6968.606.0 Self 31 Q68296K [employer] Compensation [id number] 2.16.840.1.251200.3.227.99.6968.606.0 Self 31 [id number] [employer] Compensation [id number] 2.16.840.1.231597.3.227.99.6968.606.0 Self 31 [id number] [employer] [id number] 2.16.840.1.472028.3.227.99.6968.606.0 Self 31 [id number] [employer] Compensation [id number] 2.16.840.1.452835.3.227.99.6968.606.0 Self 31 [id number] [employer] Compensation [id number] 2.16.840.1.581120.3.227.99.6968.606.0 Self 31 [id number] [employer] Compensation [id number] 2.16.840.1.592098.3.227.99.6968.606.0 Self 31 [id number] [employer] Compensation [id number] 2.16.840.1.183100.3.227.99.6968.606.0 Self 31 B92872H [employer] Compensation [id number] 2.16.840.1.245948.3.227.99.6968.606.0 Self 31 [id number] [employer] Compensation [id number] 2.16.840.1.767424.3.227.99.6968.606.0 Self 31 [id number] [employer] Compensation [id number] 2.16.840.1.607914.3.227.99.6968.606.0 Self 31 [id number] [employer] Compensation [id number] 2.16.840.1.808749.3.227.99.6968.606.0 Self 31 [id number] [employer] Compensation [id number] 2.16.840.1.713172.3.227.99.6968.606.0 Self 31 [id number] [employer] Compensation [id number] 2.16.840.1.359948.3.227.99.6968.606.0 Self 31 [id number] [employer] Compensation [id number] 2.16.840.1.882981.3.227.99.6968.606.0 Self 31 [id number] [employer] Compensation [id number] 2.16.840.1.941283.3.227.99.6968.606.0 Self 31 [id number] [employer] Compensation [id number] 2.16.840.1.335960.3.227.99.6968.606.0 Self 31 [id number] [employer] Compensation [id number] 2.16.840.1.515026.3.227.99.6968.606.0 Self 31 [id number] [employer] Compensation [id number] 2.16.840.1.632630.3.227.99.6968.606.0 Self 31 [id number] [employer] Compensation [id number] 2.16.840.1.338148.3.227.99.6968.606.0 Self 31 [id number] [employer] Compensation [id number] 2.16.840.1.986914.3.227.99.6968.606.0 Self 31 [id number] [employer] Compensation [id number] 2.16.840.1.071990.3.227.99.6968.606.0 Self 31 [id number] [employer] Compensation [id number] 2.16.840.1.858343.3.227.99.6968.606.0 Self 31 [id number] [employer] Compensation [id number] 2.16.840.1.455629.3.227.99.6968.606.0 Self 31 [id number] [employer] Compensation [id number] 2.16.840.1.151938.3.227.99.6968.606.0 Self 31 [id number] [employer] Compensation [id number] 2.16.840.1.851041.3.227.99.6968.606.0 Self 31 S55347V [employer] Compensation [id number] 2.16.840.1.474077.3.227.99.6968.606.0 Self 31 [id number] [employer] Compensation [id number] 2.16.840.1.170608.3.227.99.6968.606.0 Self 31 [id number] [employer] Compensation [id number] 2.16.840.1.621675.3.227.99.6968.606.0 Self 31 [id number] [employer] Compensation [id number] 2.16.840.1.109450.3.227.99.6968.606.0 Self 31 [id number] [employer] Compensation [id number] 2.16.840.1.940856.3.227.99.6968.606.0 Self 31 [id number] [employer] Compensation [id number] 2.16.840.1.903007.3.227.99.6968.606.0 Self 31 [id number] [employer] Compensation [id number] 2.16.840.1.670833.3.227.99.6968.606.0 Self 31 I48429S [employer] Compensation [id number] 2.16.840.1.772336.3.227.99.6968.606.0 Self 31 [id number] [employer] Compensation [id number] 2.16.840.1.618512.3.227.99.6968.606.0 Self 31 [id number] [employer] Compensation [id number] 2.16.840.1.753548.3.227.99.6968.606.0 Self 31 Q54569W [employer] Compensation [id number] 2.16.840.1.368641.3.227.99.6968.606.0 Self 31 [id number] [employer] Compensation [id number] 2.16.840.1.721596.3.227.99.6968.606.0 Self 31 [id number] [employer] Compensation [id number] 2.16.840.1.462027.3.227.99.6968.606.0 Self 31 G91603H [employer] Compensation [id number] 2.16.840.1.926462.3.227.99.6968.606.0 Self 31 [id number] [employer] Compensation [id number] 2.16.840.1.726408.3.227.99.6968.606.0 Self 31 [id number] [employer] Compensation [id number] 2.16.840.1.236810.3.227.99.6968.606.0 Self 31 [id number] [employer] Compensation [id number] 2.16.840.1.333365.3.227.99.6968.606.0 Self 31 [id number] [employer] Compensation [id number] 2.16.840.1.868380.3.227.99.6968.606.0 Self 31 [id number] [employer] Compensation [id number] 2.16.840.1.816712.3.227.99.6968.606.0 Self 31 [id number] [employer] Compensation [id number] 2.16.840.1.561771.3.227.99.6968.606.0 Self 31 [id number] [employer] Compensation [id number] 2.16.840.1.069897.3.227.99.6968.606.0 Self 31 [id number] [employer] Compensation [id number] 2.16.840.1.402213.3.227.99.6968.606.0 Self 31 [id number] [employer] Compensation [id number] 2.16.840.1.223104.3.227.99.6968.606.0 Self 31 [id number] [employer] Compensation [id number] 2.16.840.1.359457.3.227.99.6968.606.0 Self 31 [id number] [employer] Compensation [id number] 2.16.840.1.096977.3.227.99.6968.606.0 Self 31 [id number] [employer] Compensation [id number] 2.16.840.1.028572.3.227.99.6968.606.0 Self 31 [id number] [employer] Compensation [id number] 2.16.840.1.272258.3.227.99.6968.606.0 Self 31 [id number] [employer] Compensation [id number] 2.16.840.1.282070.3.227.99.6968.606.0 Self 31 [id number] [employer] Compensation [id number] 2.16.840.1.885515.3.227.99.6968.606.0 Self 31 [id number] [employer] Compensation [id number] 2.16.840.1.986397.3.227.99.6968.606.0 Self 31 [id number] [employer] Compensation [id number] 2.16.840.1.048742.3.227.99.6968.606.0 Self 31 [id number] [employer] Compensation [id number] 2.16.840.1.063165.3.227.99.6968.606.0 Self 31 [id number] [employer] Compensation [id number] 2.16.840.1.772282.3.227.99.6968.606.0 Self 31 [id number] [employer] Compensation [id number] 2.16.840.1.875245.3.227.99.6968.606.0 Self 31 [id number] [employer] Compensation [id number] 2.16.840.1.429236.3.227.99.6968.606.0 Self 31 [id number] [employer] Compensation [id number] 2.16.840.1.377564.3.227.99.6968.606.0 Self 31 [id number] [employer] Compensation [id number] 2.16.840.1.326116.3.227.99.6968.606.0 Self 31 [id number] [employer] Compensation [id number] 2.16.840.1.406179.3.227.99.6968.606.0 Self 31 [id number] [employer] Compensation [id number] 2.16.840.1.287230.3.227.99.6968.606.0 Self 31 [id number] [employer] Compensation [id number] 2.16.840.1.173917.3.227.99.6968.606.0 Self 31 [id number] [employer] Compensation [id number] 2.16.840.1.383678.3.227.99.6968.606.0 Self 31 [id number] [employer] Compensation [id number] 2.16.840.1.697032.3.227.99.6968.606.0 Self 31 [id number] [employer] Compensation [id number] 2.16.840.1.832305.3.227.99.6968.606.0 Self 31 [id number] [employer] Compensation [id number] 2.16.840.1.419182.3.227.99.6968.606.0 Self 31 [id number] [employer] Compensation [id number] 2.16.840.1.699841.3.227.99.6968.606.0 Self 31 [id number] [employer] Compensation [id number] 2.16.840.1.746566.3.227.99.6968.606.0 Self 31 [id number] [employer] Compensation [id number] 2.16.840.1.520229.3.227.99.6968.606.0 Self 31 [id number] [employer] Compensation [id number] 2.16.840.1.394105.3.227.99.6968.606.0 Self 31 [id number] [employer] Compensation [id number] 2.16.840.1.376771.3.227.99.6968.606.0 Self 31 [id number] [employer] Compensation [id number] 2.16.840.1.894075.3.227.99.6968.606.0 Self 31 [id number] [employer] Compensation [id number] 2.16.840.1.894278.3.227.99.6968.606.0 Self 31 [id number] [employer] Compensation 2.16.840.1.113 883.3.227.99.6968.606.0 Self [employer] Compensation [id number] 2.16.840.1.878890.3.227.99.6968.606.0 Self 31 [id number] [employer] Compensation 2.16.840.1.587695 .3.227.99.6968.606.0 Self [employer] Compensation [id number] 2.16.840.1.014437.3.227.99.6968.606.0 Self 31 [id number] [employer] Compensation [id number] 2.16.840.1.935781.3.227.99.6968.606.0 Self 31 [id number] [employer] Compensation [id number] 2.16.840.1.113752.3.227.99.6968.606.0 Self 31 [id number] [employer] Compensation [id number] 2.16.840.1.625663.3.227.99.6968.606.0 Self 31 [id number] [employer] Compensation [id number] 2.16.840.1.858415.3.227.99.6968.606.0 Self 31 [id number] [employer] Compensation [id number] 2.16.840.1.679106.3.227.99.6968.606.0 Self 31 [id number] [employer] Compensation [id number] 2.16.840.1.708378.3.227.99.6968.606.0 Self 31 [id number] [employer] Compensation [id number] 2.16.840.1.001489.3.227.99.6968.606.0 Self 31 [id number] [employer] Compensation [id number] 2.16.840.1.925469.3.227.99.6968.606.0 Self 31 [id number] [employer] Compensation [id number] 2.16.840.1.236046.3.227.99.6968.606.0 Self 31 [id number] [employer] Compensation [id number] 2.16.840.1.660591.3.227.99.6968.606.0 Self 31 [id number] [employer] Compensation [id number] 2.16.840.1.672662.3.227.99.6968.606.0 Self 31 [id number] [employer] Compensation [id number] 2.16.840.1.629014.3.227.99.6968.606.0 Self 31 [id number] [employer] Compensation [id number] 2.16.840.1.717384.3.227.99.6968.606.0 Self 31 [id number] [employer] Compensation [id number] 2.16.840.1.983222.3.227.99.6968.606.0 Self 31 [id number] [employer] Compensation [id number] 2.16.840.1.619302.3.227.99.6968.606.0 Self 31 [id number] [employer] Compensation [id number] 2.16.840.1.856423.3.227.99.6968.606.0 Self 31 [id number] [employer] Compensation [id number] 2.16.840.1.813744.3.227.99.6968.606.0 Self 31 [id number] [employer] Compensation [id number] 2.16.840.1.366138.3.227.99.6968.606.0 Self 31 [id number] [employer] PPO 306 [id number] SP [id number] [employer] [place] Blue [employer]/Blue Shie ld [id number] Self [id number] [employer] [place] PPO 302/307 [id number] SP [id number] [employer] [place] PPO 302/307 [id number] SP [id number] [place] [id number] [employer] PPO 306 [id number] SP [id number] [employer] PPO 306 [id number] SP [id number] [place] [facility] [id number] 2.16.840.1.555951.3.227.99.650.837388 .0 Self [id number] [place] [employer] [id number] .1.079684.3.227.99.650.768734 .0 Self [id number] [place] [employer] [id number] .1.353962.3.227.99.6968.606.0 Self 74 [id number] [place] [employer] [id number] .1.893435.3.227.99.6968.606.0 Self 74 [id number] [place] [employer] [id number] .1.896309.3.227.99.6968.606.0 Self 74 [id number] [place] [employer] [id number] ..280716.3.227.99.6968.606.0 Self 74 [id number] [place] [employer] [id number] S [id number] UNAVAILABLE UNAVAILA BLE NO FAULT POLA [id number] S [id number] [place] [employer] [id number] ..289972.3.227.99.6968.606.0 Self 74 [id number] [place] [employer] [id number] .1.423518.3.227.99.6968.606.0 Self 74 [id number] [facility] UNAVAILABLE 18 U NAVAILABLE [place] [employer] [id number] .1.959728.3.227.99.6968.606.0 Self 74 [id number] [place] [employer] [id number] .1.665083.3.227.99.6968.606.0 Self 74 [id number] [place] [employer] [id number] .1.982657.3.227.99.6968.606.0 Self 74 [id number] [place] [employer] [id number] 12.22.830.1.975216.3.227.99.6968.606.0 Self 74 [id number] [place] [employer] [id number] .0.1.104743.3.227.99.6968.606.0 Self 74 [id number] [place] [employer] [id number] .0.1.285722.3.227.99.6968.606.0 Self 74 [id number] [place] [employer] [id number] .0.1.202351.3.227.99.6968.606.0 Self 74 [id number] [place] [employer] [id number] .0.1.517887.3.227.99.6968.606.0 Self 74 [id number] [place] [employer] [place] [employer] [id number] .1.901519.3.227.9 9.1096.67555.0 Self [id number] Medicaid Medicaid [id number] .0.1.182798.3.227.99.1096.16273.0 Self [id number] [place] Workers Compensation [id number] .0.1.567656.3.227.99.1096.37658.0 Self [id number] [place] [employer] [id number] 12.22.830.1.885339.3.227.99.6968.606.0 Self 74 [id number] [place] [employer] [id number] 12.22.830.1.191054.3.227.99.6968.606.0 Self 74 [id number] [place] [employer] [id number] 12.22.830.1.705196.3.227.99.6968.606.0 Self 74 [id number] [place] [employer] [id number] 12.22.830.1.220322.3.227.99.6968.606.0 Self 74 [id number] [place] [employer] [id number] 2.840.1.826010.3.227.99.6968.606.0 Self 74 [id number] [place] [employer] [id number] 2.840.1.318303.3.227.99.6968.606.0 Self 74 [id number] [place] [employer] [id number] 2.0.1.231184.3.227.99.6968.606.0 Self 74 [id number] [place] [employer] [id number] 2.0.1.327081.3.227.99.6968.606.0 Self 74 [id number] [place] [employer] [id number] 2.0.1.059573.3.227.99.6968.606.0 Self 74 [id number] [place] [employer] [id number] .0.1.464636.3.227.99.6968.606.0 Self 74 [id number] [place] [employer] [id number] .0.1.544327.3.227.99.6968.606.0 Self 74 [id number] [place] [employer] [id number] .840.1.861236.3.227.99.6968.606.0 Self 74 [id number] [place] [employer] [id number] .840.1.400054.3.227.99.6968.606.0 Self 74 [id number] [place] [employer] [id number] .0.1.504035.3.227.99.6968.606.0 Self 74 [id number] [place] [employer] [id number] 2.840.1.692608.3.227.99.6968.606.0 Self 74 [id number] [place] [employer] [id number] 2.840.1.601032.3.227.99.6968.606.0 Self 74 [id number] [place] [employer] [id number] .840.1.916455.3.227.99.6968.606.0 Self 74 [id number] [place] [employer] [id number] .840.1.038829.3.227.99.6968.606.0 Self 74 [id number] [place] [employer] [id number] .0.1.178839.3.227.99.6968.606.0 Self 74 [id number] [place] [employer] [id number] .0.1.685094.3.227.99.6968.606.0 Self 74 [id number] [place] [employer] [id number] .0.1.722821.3.227.99.6968.606.0 Self 74 [id number] [place] [employer] [id number] .0.1.140882.3.227.99.6968.606.0 Self 74 [id number] [place] [employer] [id number] .0.1.473017.3.227.99.6968.606.0 Self 74 [id number] [place] [employer] [id number] 12.22.830.1.037351.3.227.99.6968.606.0 Self 74 [id number] [place] [employer] [id number] 12.22.830.1.868110.3.227.99.6968.606.0 Self 74 [id number] [place] [employer] [id number] .0.1.873288.3.227.99.6968.606.0 Self 74 [id number] [place] [employer] [id number] 12.22.830.1.399253.3.227.99.6968.606.0 Self 74 [id number] [place] [employer] [id number] 2.0.1.763451.3.227.99.6968.606.0 Self 74 [id number] [place] [employer] [id number] .0.1.947159.3.227.99.6968.606.0 Self 74 [id number] [place] [employer] [id number] .0.1.222196.3.227.99.6968.606.0 Self 74 [id number] [place] [employer] [id number] .0.1.356596.3.227.99.6968.606.0 Self 74 [id number] [place] [employer] [id number] .0.1.599017.3.227.99.6968.606.0 Self 74 [id number] [place] [employer] [id number] .0.1.821467.3.227.99.6968.606.0 Self 74 [id number] [place] [employer] [id number] .0.1.879221.3.227.99.6968.606.0 Self 74 [id number] [place] [employer] [id number] .0.1.770824.3.227.99.6968.606.0 Self 74 [id number] [place] [employer] [id number] 12.22.830.1.277905.3.227.99.6968.606.0 Self 74 [id number] [place] [employer] [id number] .0.1.271071.3.227.99.6968.606.0 Self 74 [id number] [place] [employer] [id number] .0.1.934103.3.227.99.6968.606.0 Self 74 [id number] [place] [employer] [id number] .0.1.290233.3.227.99.6968.606.0 Self 74 [id number] [place] [employer] [id number] 2.840.1.555980.3.227.99.6968.606.0 Self 74 [id number] [place] [employer] [id number] 2.0.1.989828.3.227.99.6968.606.0 Self 74 [id number] [place] [employer] [id number] 2.0.1.063339.3.227.99.6968.606.0 Self 74 [id number] [place] [employer] [id number] .0.1.432125.3.227.99.6968.606.0 Self 74 [id number] [place] [employer] [id number] .0.1.776293.3.227.99.6968.606.0 Self 74 [id number] [place] [employer] [id number] .0.1.446272.3.227.99.6968.606.0 Self 74 [id number] [place] [employer] [id number] 12.22.830.1.360924.3.227.99.6968.606.0 Self 74 [id number] [place] [employer] [id number] 12.22.830.1.666339.3.227.99.6968.606.0 Self 74 [id number] [place] [employer] [id number] .0.1.504998.3.227.99.6968.606.0 Self 74 [id number] [place] [employer] [id number] 12.22.830.1.500418.3.227.99.6968.606.0 Self 74 [id number] [place] [employer] [id number] 2.0.1.123774.3.227.99.6968.606.0 Self 74 [id number] [place] [employer] [id number] .0.1.678598.3.227.99.6968.606.0 Self 74 [id number] [place] [employer] [id number] 12.22.830.1.508806.3.227.99.6968.606.0 Self 74 [id number] [place] [employer] [id number] 12.22.830.1.873802.3.227.99.6968.606.0 Self 74 [id number] [place] [employer] [id number] .0.1.211419.3.227.99.6968.606.0 Self 74 [id number] [place] [employer] [id number] 12.22.830.1.316803.3.227.99.6968.606.0 Self 74 [id number] [place] [employer] [id number] 12.22.830.1.524910.3.227.99.6968.606.0 Self 74 [id number] [place] [employer] [id number] 12.22.830.1.153549.3.227.99.6968.606.0 Self 74 [id number] [place] [employer] [id number] 12.22.830.1.451163.3.227.99.6968.606.0 Self 74 [id number] [place] [employer] [id number] 12.22.830.1.707057.3.227.99.6968.606.0 Self 74 [id number] [place] [employer] [id number] 12.22.830.1.176458.3.227.99.6968.606.0 Self 74 [id number] [place] [employer] [id number] 12.22.830.1.258595.3.227.99.6968.606.0 Self 74 [id number] [place] [employer] [id number] 12.22.830.1.540094.3.227.99.6968.606.0 Self 74 [id number] [employer]ICAID [employer] ORGANIZATION HEA [id number] 181 S [id number] [place] [employer] [id number] 12.22.830.1.207057.3.227.99.6968.606.0 Self 74 [id number] [place] [employer] [id number] 12.22.830.1.471550.3.227.99.6968.606.0 Self 74 [id number] [place] [employer] [id number] 12.22.830.1.691369.3.227.99.6968.606.0 Self 74 [id number] [place] [employer] [id number] 12.22.830.1.496150.3.227.99.6968.606.0 Self 74 [id number] [place] [employer] [id number] 12.22.830.1.473356.3.227.99.6968.606.0 Self 74 [id number] [place] [employer] [id number] 12.22.830.1.542256.3.227.99.6968.606.0 Self 74 [id number] [place] [employer] [id number] 12.22.830.1.320324.3.227.99.6968.606.0 Self 74 [id number] [place] [employer] [id number] 12.22.830.1.566157.3.227.99.6968.606.0 Self 74 [id number] [place] [employer] [id number] 12.22.830.1.857412.3.227.99.6968.606.0 Self 74 [id number] [place] [employer] [id number] 12.22.830.1.923263.3.227.99.6968.606.0 Self 74 [id number] [place] [employer] [id number] 12.22.830.1.864298.3.227.99.6968.606.0 Self 74 [id number] [place] [employer] [id number] 2.0.1.495711.3.227.99.6968.606.0 Self 74 [id number] [place] [employer] [id number] .0.1.027795.3.227.99.6968.606.0 Self 74 [id number] [place] [employer] [id number] .0.1.622189.3.227.99.6968.606.0 Self 74 [id number] [place] [employer] [id number] .0.1.714778.3.227.99.6968.606.0 Self 74 [id number] [place] [employer] [id number] .0.1.415396.3.227.99.6968.606.0 Self 74 [id number] [place] [employer] [id number] 12.22.830.1.415853.3.227.99.6968.606.0 Self 74 [id number] [place] [employer] [id number] 12.22.830.1.756191.3.227.99.6968.606.0 Self 74 [id number] [place] [employer] [id number] 12.22.830.1.888263.3.227.99.6968.606.0 Self 74 [id number] [place] [employer] [id number] 12.22.830.1.153415.3.227.99.6968.606.0 Self 74 [id number] [place] [employer] [id number] 12.22.830.1.631325.3.227.99.6968.606.0 Self 74 [id number] [place] [employer] [id number] 12.22.830.1.263267.3.227.99.6968.606.0 Self 74 [id number] [place] [employer] [id number] 12.22.830.1.898667.3.227.99.6968.606.0 Self 74 [id number] [place] [employer] [id number] 2.840.1.637472.3.227.99.6968.606.0 Self 74 [id number] [place] [employer] [id number] 2.840.1.661678.3.227.99.6968.606.0 Self 74 [id number] [place] [employer] [id number] 2.0.1.044577.3.227.99.6968.606.0 Self 74 [id number] [place] [employer] [id number] .0.1.596512.3.227.99.6968.606.0 Self 74 [id number] [place] [employer] [id number] 2.0.1.174609.3.227.99.6968.606.0 Self 74 [id number] [place] [employer] [id number] .0.1.938225.3.227.99.6968.606.0 Self 74 [id number] [place] [employer] [id number] .0.1.336361.3.227.99.6968.606.0 Self 74 [id number] [place] [employer] [id number] 12.22.830.1.599007.3.227.99.6968.606.0 Self 74 [id number] [place] [employer] [id number] .840.1.526748.3.227.99.6968.606.0 Self 74 [id number] [place] [employer] [id number] .0.1.519757.3.227.99.6968.606.0 Self 74 [id number] [place] [employer] [id number] 2.840.1.725489.3.227.99.6968.606.0 Self 74 [id number] [place] [employer] [id number] .16.840.1.870899.3.227.99.6968.606.0 Self 74 [id number] [place] [employer] [id number] 840.1.999454.3.227.99.6968.606.0 Self 74 [id number] [place] [employer] [id number] 840.1.727906.3.227.99.6968.606.0 Self 74 [id number] [place] [employer] [id number] .840.1.102345.3.227.99.6968.606.0 Self 74 [id number] [place] [employer] [id number] 12.22.830.1.293570.3.227.99.6968.606.0 Self 74 [id number] [place] [employer] [id number] 12.22.830.1.037992.3.227.99.6968.606.0 Self 74 [id number] [place] [employer] [id number] 12.22.830.1.002857.3.227.99.6968.606.0 Self 74 [id number] [place] [employer] [id number] 12.22.830.1.808036.3.227.99.6968.606.0 Self 74 [id number] [place] [employer] [id number] 12.22.830.1.242385.3.227.99.6968.606.0 Self 74 [id number] [place] [employer] [id number] 840.1.922308.3.227.99.6968.606.0 Self 74 [id number] [place] [employer] [id number] 12.22.830.1.907073.3.227.99.6968.606.0 Self 74 [id number] [place] [employer] [id number] 840.1.827252.3.227.99.6968.606.0 Self 74 [id number] [place] [employer] [id number] .0.1.389453.3.227.99.6968.606.0 Self 74 [id number] [place] [employer] [id number] .840.1.251579.3.227.99.6968.606.0 Self 74 [id number] [place] [employer] [id number] .0.1.452604.3.227.99.6968.606.0 Self 74 [id number] [place] [employer] [id number] .0.1.242400.3.227.99.6968.606.0 Self 74 [id number] [place] [employer] [id number] .0.1.134616.3.227.99.6968.606.0 Self 74 [id number] [place] [employer] [id number] .0.1.227758.3.227.99.6968.606.0 Self 74 [id number] [place] [employer] [id number] .0.1.349168.3.227.99.6968.606.0 Self 74 [id number] [place] [employer] [id number] .0.1.483510.3.227.99.6968.606.0 Self 74 [id number] [place] [employer] [id number] .0.1.483736.3.227.99.6968.606.0 Self 74 [id number] [place] [employer] [id number] .0.1.064580.3.227.99.6968.606.0 Self 74 [id number] [place] [employer] [id number] 12.22.830.1.928495.3.227.99.6968.606.0 Self 74 [id number] [place] [employer] [id number] .0.1.690350.3.227.99.6968.606.0 Self 74 [id number] [place] [employer] [id number] .0.1.484757.3.227.99.6968.606.0 Self 74 [id number] [place] [employer] [id number] 2.0.1.298776.3.227.99.6968.606.0 Self 74 [id number] [place] [employer] [id number] .0.1.853319.3.227.99.6968.606.0 Self 74 [id number] [place] [employer] [id number] .0.1.914654.3.227.99.6968.606.0 Self 74 [id number] [place] [employer] [id number] 12.22.830.1.115419.3.227.99.6968.606.0 Self 74 [id number] [place] [employer] [id number] 12.22.830.1.688175.3.227.99.6968.606.0 Self 74 [id number] [place] [employer] [id number] .1.295853.3.227.99.6968.606.0 Self 74 [id number] [place] [employer] [id number] .1.306997.3.227.99.6968.606.0 Self 74 [id number] [place] [employer] [id number] 12.22.830.1.112316.3.227.99.6968.606.0 Self 74 [id number] [place] [employer] [id number] 12.22.830.1.836256.3.227.99.6968.606.0 Self 74 [id number] [place] [employer] [id number] 12.22.830.1.067720.3.227.99.6968.606.0 Self 74 [id number] [place] [employer] [id number] 12.22.830.1.592630.3.227.99.6968.606.0 Self 74 [id number] [place] [employer] [id number] 2.840.1.140687.3.227.99.6968.606.0 Self 74 [id number] [place] [employer] [id number] 2.840.1.508435.3.227.99.6968.606.0 Self 74 [id number] [place] [employer] [id number] 2.0.1.116415.3.227.99.6968.606.0 Self 74 [id number] [place] [employer] [id number] .0.1.347714.3.227.99.6968.606.0 Self 74 [id number] [place] [employer] [id number] .0.1.951349.3.227.99.6968.606.0 Self 74 [id number] [place] [employer] [id number] .0.1.110943.3.227.99.6968.606.0 Self 74 [id number] [place] [employer] [id number] .0.1.171476.3.227.99.6968.606.0 Self 74 [id number] [place] [employer] [id number] 12.22.830.1.218033.3.227.99.6968.606.0 Self 74 [id number] [place] [employer] [id number] .840.1.485298.3.227.99.6968.606.0 Self 74 [id number] [place] [employer] [id number] .840.1.836538.3.227.99.6968.606.0 Self 74 [id number] [place] [employer] [id number] .840.1.558266.3.227.99.6968.606.0 Self 74 [id number] [place] [employer] [id number] 2.840.1.156440.3.227.99.6968.606.0 Self 74 [id number] [place] [employer] [id number] 2.840.1.386219.3.227.99.6968.606.0 Self 74 [id number] [place] [employer] [id number] 2.0.1.396993.3.227.99.6968.606.0 Self 74 [id number] [place] [employer] [id number] .0.1.896033.3.227.99.6968.606.0 Self 74 [id number] [place] [employer] [id number] 2.0.1.027247.3.227.99.6968.606.0 Self 74 [id number] [place] [employer] [id number] .0.1.340024.3.227.99.6968.606.0 Self 74 [id number] [place] [employer] [id number] .0.1.453944.3.227.99.6968.606.0 Self 74 [id number] [place] [employer] [id number] .840.1.378785.3.227.99.6968.606.0 Self 74 [id number] [place] [employer] [id number] .0.1.904094.3.227.99.6968.606.0 Self 74 [id number] [place] [employer] [id number] .0.1.552503.3.227.99.6968.606.0 Self 74 [id number] [place] [employer] [id number] 2.840.1.233662.3.227.99.6968.606.0 Self 74 [id number] [place] [employer] [id number] .840.1.589660.3.227.99.6968.606.0 Self 74 [id number] [place] [employer] [id number] .840.1.316055.3.227.99.6968.606.0 Self 74 [id number] [place] [employer] [id number] .840.1.711928.3.227.99.6968.606.0 Self 74 [id number] [place] [employer] [id number] .0.1.440258.3.227.99.6968.606.0 Self 74 [id number] [place] [employer] [id number] 12.22.830.1.409193.3.227.99.6968.606.0 Self 74 [id number] [place] [employer] [id number] 12.22.830.1.580617.3.227.99.6968.606.0 Self 74 [id number] [place] [employer] [id number] .0.1.664754.3.227.99.6968.606.0 Self 74 [id number] [place] [employer] [id number] 12.22.830.1.614617.3.227.99.6968.606.0 Self 74 [id number] [place] [employer] [id number] 12.22.830.1.497093.3.227.99.6968.606.0 Self 74 [id number] [place] [employer] [id number] 12.22.830.1.206403.3.227.99.6968.606.0 Self 74 [id number] [place] [employer] [id number] 12.22.830.1.426054.3.227.99.6968.606.0 Self 74 [id number] [place] [employer] [id number] 840.1.943222.3.227.99.6968.606.0 Self 74 [id number] [place] [employer] [id number] 2..840.1.588298.3.227.99.6968.606.0 Self 74 [id number] [place] [employer] [id number] 2.16.840.1.029989.3.227.99.6968.606.0 Self 74 [id number] [place] [id number] 2.16.840.1.646948.3.227.99.6968.606.0 Self [id number] [place] [employer] (HMO) [id number] 2.16.840.1.489168.3.227.99.6968.606.0 Self 74 [id number] SELF PAY (1) UNAVAILABLE UNAVA ILABLE [place] [id number] Self [place] [employer] [place] [employer] (HMO) [id number] Self [employer] [id number] SELF [id number] Problems, Conditions, and Diagnoses Code Display Name Description Problem Type Effective Dates Data Source(s) 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 Z20.822 CONTACT W/AND (SUSP) EXPOS COVID-19 CONT ACT WITH AND (SUSPECTED) EXPOSURE TO COVID-19 Diagnosis 06/16/2021 12:56:00 PM EDT [facility] E55.9 Vitamin D deficiency, unspecified VITAMIN D DEFI CIENCY, UNSPECIFIED Diagnosis 08/25/2020 02:03:[address] [facility] R20.0 Anesthesia of skin ANESTHESIA OF SKIN Diagnosis 02:03:[address] [facility] N28.89 [id number] Obstruction of kidney Problem 08/04/2021 12: 00:00 AM EDT eCW1 ([facility]) Surgeries/Procedures Procedure Description Date Indications Data Source(s) Plain chest X-ray (procedure) 06/28/2021 09:10:00 PM E DT [facility] Computed tomography of abdomen and pelvis with contrast (pro cedure) 06/28/2021 09:10[facility] 06/28/2021 12:00:00 AM EDT [facility] SARS-CoV-2 Rapid RNA (RT-PCR) 06/28/2021 12:00:00 AM E DT [facility] Mammogram 08/11/2020 12:00:00 AM EDT M EDENT ([facility]) Document: 04/20/16 - Mammogram Result Wet Prep 07/30/2020 12:00:00 AM EDT L [facility] Results ID Date Data Source [id number] 08/18/2021 12:30:[address] [facility] Vent Rate: 90 bpmRR Interval: 667 msecPR Interval: 125 msecQRS Duration: 75 msecQT Interval: 373 msecQTC Interval: 457 msecP-R-T [place]: 84 - 52 - 44 degreesSinus rhythm...normal P axis, V-rate 50- 99Borderline QTC prolongationSlow anterior R wave progressionMinor nonspecific repolarization changesStudy Date: [id number] Signed By: OSCAR ZHANG, RUSSELLDate: 08/18/2021 12:30 Name Value Range Interpretation Code Description Data Felisha rce(s) Supporting Document(s) ID Date Data Source [id number] 08/18/2021 12:20:[address] [facility] Chest 2 viewsClinical History: Hematuria Technique: Frontal and lateral views of the chest are obtained.Comparison: 2016 examFindings:Heart size is within the range of normal.The lungs are mildly hyperinflated, but clear.The costophrenic angles are sharp.Slight pectus deformity questioned on the lateral view.IMPRESSION:NO ACUTE FINDINGSElectronically Signed By: TONY DOTSON MDDate: 08/18/2021 12:19 Name Value Range Interpretation Code Description Data Felisha rce(s) Supporting Document(s) ID Date Data Source [id number] 08/16/2021 05:13:[address] [facility] Name Value Range Interpretation Code Description Data Felisha rce(s) Supporting Document(s) ESTIMATED GFR (CALCULATED) [facility] EGFR [address] [facility] al >59 mL/min/1.73m2 EGFR, -ALGERIAN 134 [facility] >59 mL/min/1.70l1Yccb: Persistent reduction for 3 months or more in an eGFR <60 mL/min/1.73m2 defines CKD. Patients with eGFR values >=60 mL/min/1.73m2 may also have CKD if evidence of persistent proteinuria is present. Additional information may be found at [email or web address] [facility], Dept of [employer] [address] [place] [address] * ID Date Data Source [id number] 08/16/2021 05:13:[address] [facility] Name Value Range Interpretation Code Description Data Felisha rce(s) Supporting Document(s) GLUCOSE 110 mg/dl 70-100 H [facility] BUN 11 mg/dl 4-18 [facility] CREATININE, SERUM 0.55 mg/dl 0.50-1.10 [facility] SODIUM 142 mmol/l 136-146 [facility] POTASSIUM 4.0 mmol/l 3.5-5.3 [facility] CHLORIDE 107 mmol/l 96-109 [facility] CARBON DIOXIDE 25 mmol/l 20-32 [facility] ALBUMIN 4.3 g/dl 3.5-5.0 [facility] PROTEIN, TOTAL 6.4 g/dl 6.4-8.2 [facility] CALCIUM 8.9 mg/dl 8.4-10.4 [facility] ALKALINE PHOSPHATASE 60 U/l 10-118 [facility] SGOT (AST) 19 U/l 3-40 [facility] SGPT (ALT) 12 U/l 7-50 [facility] BILIRUBIN, TOTAL 0.21 mg/dl 0.30-1.20 L [facility] BUN/CREATININE RATIO 20.0 6.0-20.0 [facility] GLOBULIN 2.1 g/dl 2.3-3.5 L [facility] ANION GAP 10.0 mmol/l 7.0-16.0 [facility] OSMOLALITY (CALCULATED) 283 mos/kg 280-300 [facility] A/G RATIO 2.0 1.0-2.0 [facility] al R [facility], Dept of [facility] h [address] [place] [address] * ID Date Data Source [id number] 08/16/2021 05:00:[address] [facility] Name Value Range Interpretation Code Description Data Felisha rce(s) Supporting Document(s) WBC 6.9 x10E3/uL 4.3-10.9 [facility] RBC 2.45 x10E6/uL 3.80-5.30 L [facility] HEMOGLOBIN 7.6 g/dl 11.8-15.8 [facility] HEMATOCRIT 25.5 % 35.0-47.0 L [facility] tasha MCV 104.1 fl 82.0-98.0 [facility] MCH 31.0 pg 27.5-33.5 [facility] MCHC 29.8 g/dl 32.0-36.[address] [facility] RDW 12.7 % 11.5-14.5 [facility] PLATELET COUNT 516 x10E3/uL 130-400 H [facility] MPV 9.7 fl 8.6-12.6 [facility] SEGMENTED NEUTROPHILS 55.3 % 44.0-74.0 [facility] LYMPHOCYTES 27.6 % 15.0-45.0 [facility] ital MONOCYTES 6.4 % 2.0-13.0 [facility] al EOSINOPHILS 9.8 % 0.0-6.0 H [facility] ital BASOPHILS 0.9 % 0.0-2.0 [facility] NEUTROPHIL ABSOLUTE 3.8 x10E3/uL 1.4-7.0 [facility] LYMPHOCYTES ABSOLUTE 1.9 x10E3/uL 1.0-3.4 [facility] MONOCYTE ABSOLUTE 0.4 x10E3/uL 0.2-1.0 [facility] EOSINOPHIL ABSOLUTE 0.7 x10E3/uL 0.0-0.5 H [facility] BASOPHIL ABSOLUTE 0.1 x10E3/uL 0.0-0.[address] [facility] R [facility], [place] [address] * ID Date Data Source [id number] 07/27/2021 01:39:[address] 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 History ofhydronephrosis of right kidney with right-sided back pain and hematuria. Stentremoved two days ago. 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 CT scan 10/18/2016.TECHNIQUE: Nuclear medicine renal scan with flow and function without Lasixadministration. 18 mCi technetium 99m DTPA administered. Sequentialscintigraphic imaging obtained over region of kidneys and urinary bladder.FINDINGS:Split function percentage:Left kidney: 52.8%. Right kidney: 47.2%.Calculated GFR (milliliters per minute):Left kidney: 53.7. Right kidney: 48.0.Time of MAX:Left kidney: 7 minutes. Right kidney: 14.0 minutes.Graphical representation of counts of both kidneys reveals prompt uptake andclearance of activity from the left kidney.There is prolonged duration to maximal uptake at the right kidney with delayed,prolonged clearance of activity from right kidney.The scintigraphic images obtained over region of kidneys, ureters and urinarybladder confirm the graphical representation of data with prolonged accumulationof radiotracer in right intrarenal collecting system, right renal pelvis withprominent activity in distribution of right ureter. This appearance raisessuspicion for hydronephrosis and hydroureter, right side.No scintigraphic imaging to suspect left-sided ureteral or kidney obstruction.IMPRESSION:SCINTIGRAPHIC IMAGING FINDINGS AT THE RIGHT KIDNEY AND RIGHT URETER WHICH CAN BESEEN WITH PARTIAL RIGHT-SIDED GENITOURINARY OBSTRUCTION. ADDITIONALLY, THISAPPEARANCE COULD BE SEEN WITH CAPACIOUS INTRARENAL COLLECTING SYSTEM, CAPACIOUSRENAL PELVIS, AND CAPACIOUS URETER.CORRELATION WITH OTHER IMAGING EXAM SUCH CT SCAN WITH CT IVU PROTOCOL MAY BEHELPFUL.Electronically Signed By: Jacek VEGA DOte: 07/27/2021 13:38 Name Value Range Interpretation Code Description Data Felisha rce(s) Supporting Document(s) ID Date Data Source [id number] 07/03/2021 07:08:00 PM EDT [facility] Name Value Range Interpretation Code Description Data Felihsa rce(s) Supporting Document(s) SARS coronavirus 2 RNA [Presence] in Res piratory specimen by LISA with probe detection NEGATIVE [place] This lab was ordered by [facility] a nd reported by [facility]. ID Date Data Source [id number] 07/02/2021 03:44:00 AM EDT [facility] [address] [place] [address] [phone] NAME SEX PT STATUS ACCOUNT NUMBER LAVON LAWS REG ER [id number] ORDERING PHYSICIAN LOCATION MEDICAL RECORD NO. Sera MD [facility] ER [id number] ATTENDING PHYSICIAN DATE OF DATE OF EXAM/TIME Marisa Elise 1980 07/02/21209 TYPE / EXAM CT Abd/pel w/o contrast REASON FOR EXAM pain Clinical History/Indication for Exam: pain CT ABDOMEN AND PELVIS WITHOUT INTRAVENOUS CONTRAST INDICATION: pain TECHNIQUE: Axial computed tomography images of the abdomen and pelvis without intravenous contrast. Sagittal and coronal reformatted images were created and reviewed. This CT exam was performed using one or more of the following dose reduction techniques: automated exposure control,adjustment of the mA and/or kV according to patient size, and/or use of iterative reconstruction technique. COMPARISON: June 28, 2021 FINDINGS: Lung bases: Unremarkable. No mass. No consolidation. ABDOMEN: Liver: Unremarkable. Gallbladder and bile ducts: The gallbladder is surgically absent. No ductal dilation. Pancreas: Unremarkable. No ductal dilation. Spleen: Unremarkable. No splenomegaly. Adrenals: Unremarkable. No mass. Kidneys and ureters: There is moderate right hydronephrosis which has developed since the prior CT. There are no visible stones. Differential includes recently passed stone, nonvisible stone, and ureteritis. There are bilateral simple renal cysts, stable. Stomach and bowel: There is mural thickening involving the rectosigmoid colon. This appearance could be due to underdistention, or mild colitis. PELVIS: Appendix: Normal appendix. Bladder: Unremarkable. No stones. Reproductive: Unremarkable as visualized. ABDOMEN and PELVIS: Intraperitoneal space: Unremarkable. No free air. No significant fluid collection. Bones/joints: No acute fracture. No dislocation. Soft tissues: Unremarkable. Vasculature: Unremarkable. No abdominal aortic aneurysm. Lymph nodes: Unremarkable. No enlarged lymph nodes. IMPRESSION: 1. There is moderate right hydronephrosis which has developed since the prior CT. There are no visible stones. Differential includes recently passed stone, nonvisible stone, and ureteritis. 2. There are bilateral simple renal cysts, stable. 3. There is mural thickening involving the rectosigmoid colon. This appearance could be due to underdistention, or mild colitis. 4. Normal appendix. 5. The gallbladder is surgically absent. Automatic exposure control was used as a dose lowering technique. REPORT SIGNATURE ON FILE 07/02/2021 (03:44 Eastern Time ) Signed by: Abril Hays M.D. Reported By Abril Hays MD on 07/02/21343 Signed By Abril Hays MD on 07/02/21343 Date Time CC: Marisa Elise; Abril Hays MD Techn: PALHE Trans Dt/Tm: Trans by: DT Prt Dt/Tm: : Total DLP = 236.00 mGy-cm : Total Radiation Dose = 3.5400 mSv Lifetime Dose: 7.8300 mSv Name Value Range Interpretation Code Description Data Felisha rce(s) Supporting Document(s) ID Date Data Source [id number] 07/02/2021 02:58:00 AM EDT [facility] @ DID THE CONTROL BAND APPEAR? Y@ DID TH E BACKGROUND CLEAR? Y Name Value Range Interpretation Code Description Data Felisha rce(s) Supporting Document(s) Leukocytes [#/volume] in Blood by Automated count 7.7 10*3/uL 4.45-10 .71 N [facility] Erythrocytes [#/volume] in Blood by Automated count 3.50 10*6/uL 4.20-5.40 Below low normal [facility] Hemoglobin [Moles/volume] in Blood 11.2 g/dL 10.7-15.4 N [facility] Hematocrit [Volume Fraction] of Blood by Automated count 33.7 % 37-47 Below low normal [facility] Erythrocyte mean corpuscular volume [Ent itic volume] in Cord blood by Automated count 96 fL 80-96 [facility] ital Erythrocyte mean corpuscular hemoglobin [Entitic mass] by Au tomated count 32 pg 27-31 Above high normal [facility] Erythrocyte mean corpuscular hemoglobin concentration [Mass/volume] in Cord blood 33 g/dL 33-37 N [facility] ital Erythrocyte distribution width [Entitic volume] by Automated count 12 % 11-15 N [facility] Platelets [#/volume] in Blood by Automated count 287 10*3/uL 130-472 N [facility] Platelet mean volume [Entitic volume] in Blood 8.9 fL 9.1-13. 1 Below low normal [facility] Neutrophils/100 leukocytes in Blood by Automated count 44.9 % 41- 77 N [facility] Neutrophils [#/volume] in Blood by Automated count 3.5 U 1.7-7.6 N [facility] Lymphocytes/100 leukocytes in Blood by Automated count 35.6 % 14- 46 N [facility] Lymphocytes [#/volume] in Blood by Automated count 2.8 U 0.6-4.6 N [facility] Monocytes/100 leukocytes in Blood by Automated count 6.9 % 4-12 N [facility] Monocytes [#/volume] in Blood by Automated count 0.5 U 0.2-1.2 N [facility] Eosinophils/100 leukocytes in Blood by Automated count 11.5 % 0-7 Above high normal [facility] Eosinophils [#/volume] in Blood by Automated count 0.9 U 0.0-0.5 Above high normal [facility] Basophils/100 leukocytes in Blood by Automated count 0.8 % 0.4-1 .3 N [facility] Basophils [#/volume] in Blood by Automated count 0.1 U 0.0-0.2 N [facility] NUCLEATED RED BLOOD CELL 0 % [facility] NUCLEATED RED BLOOD CELL# 0 U [facility] Immature granulocytes [Presence] in Blood by Automated count 0-2 N [facility] Immature granulocytes [#/volume] in Blood by Automated count 0.0 U 0-0.1 N [facility] Manual Differential panel - Blood NO [facility] ID Date Data Source [id number] 07/02/2021 03:30:00 AM EDT [facility] @ DID THE CONTROL BAND APPEAR? Y@ DID TH E BACKGROUND CLEAR? Y Name Value Range Interpretation Code Description Data Felisha rce(s) Supporting Document(s) Urea nitrogen [Mass/volume] in Serum or Plasma 13 mg/dL 9-23 N [facility] Sodium [Moles/volume] in Serum or Plasma 141 mmol/L 132-146 N [facility] Potassium [Moles/volume] in Serum or Plasma 3.8 mmol/L 3.5-5.5 [facility] Chloride [Moles/volume] in Serum or Plasma 109 mmol/L 99-109 [facility] Carbon dioxide, total [Moles/volume] in Serum or Plasma 28 mmol/L 20 -31 N [facility] Anion gap in Serum or Plasma 8 mmol/L 8-16 [facility] Glucose [Mass/volume] in Serum or Plasma 106 mg/dL 74-106 N [facility] Creatinine 0.6 mg/dL 0.5-1.1 [facility] Glomerular filtration rate/1.73 sq M.pre dicted [Volume Rate/Area] in Serum or Plasma Greater Than 60 ABOVE 60 [facility] Alanine aminotransferase [Enzymatic acti vity/volume] in Serum or Plasma by With P-5'-P 18 U/L 10-49 [facility] ital Aspartate aminotransferase [Enzymatic ac tivity/volume] in Serum or Plasma by With P-5'-P 13 U/L 0-33 N [facility] pital Alkaline phosphatase [Enzymatic activity/volume] in Serum or Plasma 62 U/L 45-129 [facility] Calcium [Mass/volume] in Serum or Plasma 8.4 mg/dL 8.5-10.1 Below low normal [facility] Bilirubin.total [Mass/volume] in Serum or Plasma 0.4 mg/dL 0.3-1.2 [facility] Albumin [Mass/volume] in Serum or Plasma by Bromocresol purple (BCP) dye binding method 3.3 g/dL 3.2-4.8 [facility] ital Protein [Mass/volume] in Serum or Plasma 6.6 g/dL 5.7-8.2 [facility] ID Date Data Source [id number] 07/02/2021 02:41:00 AM EDT [facility] @ DID THE CONTROL BAND APPEAR? Y@ DID TH E BACKGROUND CLEAR? Y Name Value Range Interpretation Code Description Data Felisha rce(s) Supporting Document(s) Choriogonadotropin [Moles/volume] in Urine NEGATIVE NEGATIVE [facility] @Reenter manual test result: NEG@by Jayde Moreira at 07/02/21 0241. ID Date Data Source [id number] 07/02/2021 02:45:00 AM EDT [facility] ([facility]) Name Value Range Interpretation Code Description Data Felisha rce(s) Supporting Document(s) Erythrocytes [#/volume] in Blood by Automated count 3.50 10*6/uL 4.20-5.40 Below low normal [facility] ([facility]) SIDE PAIN,URINATING BLOOD Leukocytes [#/volume] in Blood by Automated count 7.7 10*3/uL 4.45-10.71 Normal (applies to non-numeric results) [facility] SIDE PAIN,URINATING BLOOD Hemoglobin [Moles/volume] in Blood 11.2 g/dL 10.7-15.4 Normal (applies to non- numeric results) [facility] SIDE PAIN,URINATING BLOOD Hematocrit [Volume Fraction] of Blood by Automated count 33.7 % 37-47 Below low normal [facility] SIDE PAIN,URINATING BLOOD Erythrocyte mean corpuscular volume [Ent itic volume] in Cord blood by Automated count 96 fL 80-96 Normal (applies to non-numeric results) [facility] ([facility]) SIDE PAIN,URINATING BLOOD Erythrocyte mean corpuscular hemoglobin [Entitic mass] by Au tomated count 32 pg 27-31 Above high normal [facility] SIDE PAIN,URINATING BLOOD Erythrocyte distribution width [Entitic volume] by Automated cou nt 12 % 11-15 Normal (applies to non-numeric results) [facility] ([facility]) SIDE PAIN,URINATING BLOOD Erythrocyte mean corpuscular hemoglobin concentration [Mass/volume] in Cord blood 33 g/dL 33-37 Normal (applies to non-numeric results) [facility] ([facility]) SIDE PAIN,URINATING BLOOD Platelet mean volume [Entitic volume] in Blood 8.9 fL 9.1-13. 1 Below low normal [facility] ([facility]) SIDE PAIN,URINATING BLOOD Platelets [#/volume] in Blood by Automated count 287 10*3/uL 130-472 Normal (applies to non-numeric results) [facility] SIDE PAIN,URINATING BLOOD Neutrophils [#/volume] in Blood by Automated count 3.5 U 1.7-7.6 Normal (applies to non-numeric results) [facility] ([facility]) SIDE PAIN,URINATING BLOOD Neutrophils/100 leukocytes in Blood by Automated count 44.9 % 41-77 Normal (applies to non-numeric results) [facility] ([facility]) SIDE PAIN,URINATING BLOOD Lymphocytes [#/volume] in Blood by Automated count 2.8 U 0.6-4.6 Normal (applies to non-numeric results) [facility] ([facility]) SIDE PAIN,URINATING BLOOD Lymphocytes/100 leukocytes in Blood by Automated count 35.6 % 14-46 Normal (applies to non-numeric results) [facility] ([facility]) SIDE PAIN,URINATING BLOOD Monocytes [#/volume] in Blood by Automated count 0.5 U 0.2-1.2 Normal (applies to non-numeric results) [facility] ([facility]) SIDE PAIN,URINATING BLOOD Monocytes/100 leukocytes in Blood by Automated count 6.9 % 4-12 Normal (applies to non-numeric results) [facility] ([facility]) SIDE PAIN,URINATING BLOOD Eosinophils/100 leukocytes in Blood by Automated count 11.5 % 0-7 Above high normal [facility] ([facility]) SIDE PAIN,URINATING BLOOD Eosinophils [#/volume] in Blood by Automated count 0.9 U 0.0-0.5 Above high normal [facility] ([facility]) SIDE PAIN,URINATING BLOOD Basophils/100 leukocytes in Blood by Automated count 0.8 % 0.4-1.3 Normal (applies to non-numeric results) [facility] ([facility]) SIDE PAIN,URINATING BLOOD Basophils [#/volume] in Blood by Automated count 0.1 U 0.0-0.2 Normal (applies to non-numeric results) [facility] ([facility]) SIDE PAIN,URINATING BLOOD Laboratory test finding (navigational concept) 0 U [facility] ([facility]) SIDE PAIN,URINATING BLOOD Laboratory test finding (navigational concept) 0 % [facility] ([facility]) SIDE PAIN,URINATING BLOOD Immature granulocytes [#/volume] in Blood by Automated count 0.0 U 0-0.1 Normal (applies to non-numeric results) [facility] SIDE PAIN,URINATING BLOOD Immature granulocytes [Presence] in Blood by Automated count 0.3 0-2 Normal (applies to non-numeric results) [facility] ([facility]) SIDE PAIN,URINATING BLOOD Manual Differential panel - Blood Laboratory test result [facility] ([facility]) SIDE PAIN,URINATING BLOOD ID Date Data Source [id number] 07/02/2021 02:45:00 AM EDT [facility] ([facility]) Name Value Range Interpretation Code Description Data Felisha rce(s) Supporting Document(s) Urea nitrogen [Mass/volume] in Serum or Plasma 13 mg/dL 9 -23 Normal (applies to non-numeric results) [facility] ([facility]) SIDE PAIN,URINATING BLOOD Sodium [Moles/volume] in Serum or Plasma 141 mmol/L 132-146 Normal (applies to non-numeric results) [facility] ([facility]) SIDE PAIN,URINATING BLOOD Potassium [Moles/volume] in Serum or Plasma 3.8 mmol/L 3.5- 5.5 Normal (applies to non-numeric results) [facility] ([facility] SIDE PAIN,URINATING BLOOD Chloride [Moles/volume] in Serum or Plasma 109 mmol/L 99-10 9 Normal (applies to non-numeric results) [facility] ([facility]) SIDE PAIN,URINATING BLOOD Carbon dioxide, total [Moles/volume] in Serum or Plasma 28 mmol/ L 20-31 Normal (applies to non-numeric results) [facility] ([facility]) SIDE PAIN,URINATING BLOOD Anion gap in Serum or Plasma 8 mmol/L 8-16 [place] mal (applies to non-numeric results) [facility] ([facility]) SIDE PAIN,URINATING BLOOD Glucose [Mass/volume] in Serum or Plasma 106 mg/dL 74-106 Normal (applies to non-numeric results) [facility] ([facility]) SIDE PAIN,URINATING BLOOD Creatinine 0.6 mg/dL 0.5-1.1 Normal (applies to non-numeric resul ts) [facility] ([facility]) SIDE PAIN,URINATING BLOOD Glomerular filtration rate/1.73 sq M.pre dicted [Volume Rate/Area] in Serum or Plasma Laboratory test result [facility] ([facility]) SIDE PAIN,URINATING BLOOD Alanine aminotransferase [Enzymatic acti vity/volume] in Serum or Plasma by With P-5'-P 18 U/L 10-49 Normal (applies to non-numeric results) [facility]) SIDE PAIN,URINATING BLOOD Alkaline phosphatase [Enzymatic activity/volume] in Serum or Plasma 62 U/L 45-129 Normal (applies to non-numeric results) [facility] ([facility]) SIDE PAIN,URINATING BLOOD Aspartate aminotransferase [Enzymatic ac tivity/volume] in Serum or Plasma by With P-5'-P 13 U/L 0-33 Normal (applies to non-numeric results) [facility] ([facility]) SIDE PAIN,URINATING BLOOD Bilirubin.total [Mass/volume] in Serum or Plasma 0.4 mg/dL 0.3-1.2 Normal (applies to non-numeric results) [facility] ([facility]) SIDE PAIN,URINATING BLOOD Calcium [Mass/volume] in Serum or Plasma 8.4 mg/dL 8.5-10.1 Below low normal [facility] ([facility]) SIDE PAIN,URINATING BLOOD Protein [Mass/volume] in Serum or Plasma 6.6 g/dL 5.7-8.2 Normal (applies to non-numeric results) [facility] ([facility]) SIDE PAIN,URINATING BLOOD Albumin [Mass/volume] in Serum or Plasma by Bromocresol purple (BCP) dye binding method 3.3 g/dL 3.2-4.8 Normal (applies to non-numeric results) [facility] ([facility]) SIDE PAIN,URINATING BLOOD ID Date Data Source [id number] 07/02/2021 02:39:00 AM EDT [facility] ED Physician Documentation NAME: LAVON LAWS : 1980 AGE: 40 MR#: [id number] SERVICE DATE: 07/02/[address]: Sera Bunn MD PRIMARY CARE DR: Marisa Elise ROOM#: HPI (Adult, General) General Chief Complaint: Urogenital Stated Complaint: SIDE PAIN,URINATING BLOOD Time Seen by Provider: 07/02/21 02:10 History of Present Illness Narrative: 40yo F c/o 1 week h/o gross hematuria, nonradiating RT flank pain, nausea. [facility], rx'd macrobid w/o relief. evaluated then at [facility] ER 4 days ago, no kidney stones or massnoted on CT a/p. advised to continue macrobid. pt returns for worsening RT flank pain. h/o bladder cancer on maternal side. Allergies/Home Meds Allergies Allergy/AdvReac Type Severity Reaction Status Date / Time metronidazole [From FLAGYL] Allergy Mild NAUSEA AND Verified 06/28/21 21:09 VOMITING AND RASH Sulfa (Sulfonamide Allergy Mild Rash Verified 06/28/21 21:09 Antibiotics) sulfacetamide [Sulfacetamide] Allergy Mild Rash Verified 06/28/21 21:09 Home Medications Medication Instructions Recorded Confirmed Last Taken Type multivitamin (Daily Multiple) 1 ea PO DAILY tab 12/30/15 06/28/21 06/28/21 History ciprofloxacin HCl 500 mg tablet 500 mg PO BID #14 tab 07/02/21 Unknown Rx (Cipro) ondansetron HCl 4 mg tablet 4 mg PO Q8H PRN 4 Days #10 tab 07/02/21 Unknown Rx (Zofran) oxycodone 5 mg capsule 5 mg PO Q8H PRN 3 Days #7 cap 07/02/21 Unknown Rx PMH (from Triage) Patient Medical History PMH Reviewed/Updated as Needed: Yes PMH/PSH from Triage: Medical History (Updated 07/29/20 @ 11:30 by Manuela Caruso) 6 (Medical) Parity 5 (Medical) Z87.898 Poor circulation (Medical) Surgical History (Updated 04/30/19 @ 11:56 by [employer] [place]) Biopsy of breast (Surgical) right section (Surgical) Cholecystectomy (Surgical) History of - surgery (Surgical) BL TUBES AND OVARIES 02/13/19 EXTENSIVE ADHESIONS History of hysterectomy (Surgical) [facility]-12/31/2012 Status post tubal ligation (Surgical) Female History : No Hx Drug Resistant Infections Hx MRSA: (Methicillin-resistant Staphylococcus aureus): No Hx VRE (Vancomycin-resistant enterococci): No Hx C.Diff: No Hx CRKP: No Hx Other Resistant Infection?: No Isolation: Droplet Hx Recent Travel Out of the country within 10 days (where): No Hx Fever: No Hx Fever with a rash?: No Nurse screening for coronavirus: Recent Travel outside the No country (where) Has patient experienced No coronavirus symptoms Social History Does patient have suicidal/homicidal thoughts or ideation?: No Are you in a relationship with /Does anyone hit you, yell/swear at you, steal from you?: No Substance Use Hx Alcohol Use: No Hx Substance Use: No Hx Substance Use Treatment: No Smoking Status: Current every day smoker Vaccination History Hx/Date of Tetanus, Diphtheria Vaccination: Yes Hx/Date of Influenza Vaccination: No Hx/Date of Pneumococcal Vaccination: No PFSH Medical History 6 Parity 5 Poor circulation Surgical History Biopsy of breast section Cholecystectomy History of - surgery History of hysterectomy Status post tubal ligation Family History (Updated 07/30/20 @ 12:03 by Manuela Caruso) Mother Kidney disease Father No problems noted. Aunt Breast cancer Aunt Breast cancer Other Asthma Seizure disorder Social History (Updated 07/30/20 @ 12:03 by Manuela Caruso) Does the Patient have a Healthcare Proxy: No Does Patient have a DNR?: No Does Patient have a Living Will?: No adopted: No household members: spouse and children marital status: Hx Recent Travel (where): No sexually active: Yes do you think of yourself as: straight/heterosexual Smoking Status: Current every day smoker Female Reproductive History Menstrual Age of Menarche: 9 control method: other Menopause type: surgical Total pregnancies: 6 Ab spontaneous: 1 ROS Review of Systems Constitutional: Reports malaise; Denies fever, chills, sweats, weakness, weight loss or weight gain Eyes: Denies vision change or eye pain ENT: Denies mouth pain or dry mouth Respiratory: Denies cough, SOB, stridor, wheezing or hemoptysis Cardiovascular: Denies chest pain, palpitations, edema, light headedness or syncope Gastrointestinal: Reports nausea; Denies vomiting, abdominal pain, diarrhea, constipation, hematemesis, black tarry stools, melena, hematochezia or coffee grounds emesis Genitourinary-Female: Reports hematuria; Denies dysuria, frequency, incontinence, retention, cloudy or smoky urine, kidney stones or urgency Musculoskeletal: Reports back pain (right flank pain); Denies neck pain, leg pain or thigh or calf cramps Skin/Breasts: Denies rash, lesions, pruritus, bruising or change in color Neurologic: Reports weakness and abnormal gait (antalgic); Denies numbness, headache, incoordination, change in speech, confusion, dizziness, vertigo, lightheadedness, seizures, tremors, loss of consciousness or paresthesias Psychiatric: Reports No Symptoms/Complaints Endocrine: Reports No Symptoms/Complaints Hematological/Lymphatic: Reports No Symptoms/Complaints Allergic/Immunologic: Reports No Symptoms/Complaints Physical Exam General Limitations: no limitations General appearance: alert and in distress Head Head exam: Present atraumatic, normocephalic and normal inspection Eye Eye exam: Present normal apperance, PERRL and EOMI; Absent scleral icterus, conjunctival injection, nystagmus, periorbital swelling or periorbital tenderness Pupils: Present normal accommodation ENT ENT exam: Present normal orophraynx and mucous membranes moist Neck Neck exam: Present normal inspection, full ROM and supple Respiratory Respiratory exam: Present normal lung sounds bilaterally; Absent respiratory distress, wheezes, rales, rhonchi, stridor, accessory muscle use, decreased breath sounds or prolonged expiratory Cardiovascular Cardiovascular Exam: Present regular rate, normal rhythm, normal heart sounds and no murmur GI/Abdominal GI/Abdominal exam: Present Abd soft, bowel sounds present all quadrents Extremities Exam Extremities exam: Present Full ROM without tenderness, capillary refill brisk, full ROM and capillary refill brisk; Absent tenderness, pedal edema, joint swe lling or calf tenderness Back Exam Back exam: Present normal inspection, full ROM (limited due to RT flank pain) and CVA tenderness (R); Absent CVA tenderness (L), muscle spasm, paraspinal tenderness, vertebral tenderness or rash noted Neurological Exam Neurological exam: Present alert, oriented X3, CN II-XII intact, abnormal gait (antalgic) and reflexes normal; Absent motor sensory deficit Psychiatric Psychiatric exam: Present normal affect and normal mood; Absent agitated or anxious Skin Skin exam: Present warm, dry, intact and normal color; Absent rash, cyanosis, diaphoretic, erythema, vesicles, petechiae, pallor, mottled or abrasion Vital Signs Vital Signs: Vital Signs 07/02/21 02:27 07/02/21 04:05 Temperature 98.9 F Pulse Rate 84 79 Respiratory Rate 18 16 Blood Pressure 129/59 122/63 O2 Sat by Pulse Oximetry 99 99 MDM (comprehensive) Lab Data Labs: 07/02/21 02:45 07/02/21 02:45 Laboratory Results Last 24 hours 07/02/21 02:25: Urine HCG, Qual Negative 07/02/21 02:25: Urine Color [place] A, Urine Appearance Cloudy A, Urine pH 6.0, Ur Specific [place] 1.014, Urine Protein 30 mg/dl H, Urine Ketones Negative, Urine Blood Large H, Urine Nitrite Negative, Urine Bilirubin Negative, Urine Urobilinogen 0.2 eu/dl, Ur Leukocyte Esterase Small H, Urine RBC 51-100 H, Urine WBC 3-5, Ur Squamous Epith Cells Few, Urine Bacteria Small amount H, Micro UA Comment Microscopic added, Urine Glucose Negative 07/02/21 02:45: WBC 7.7, RBC 3.50 L, Hgb 11.2, Hct 33.7 L, MCV 96, MCH 32 H, MCHC 33, RDW 12, Plt Count 287, MPV 8.9 L, Immature Gran % (Auto) 0.3, Neut % (Auto) 44.9, Lymph % (Auto) 35.6, [place] % (Auto) 6.9, Eos % (Auto) 11.5 H, Baso % (Auto) 0.8, Lymph # (Auto) 2.8, Abs Immat Gran (auto) 0.0, Add Manual Diff No, Absolute Neutrophils 3.5, Monocytes # 0.5, Absolute Eosinophils 0.9 H, Absolute Basophils 0.1 07/02/21 02:45: Sodium 141, Potassium 3.8, Chloride 109, Carbon Dioxide 28, Anion Gap 8, BUN 13, Creatinine 0.6, GFR Calculation Greater than 60, Glucose 106, Calcium 8.4 L, Total Bilirubin 0.4, AST 13, ALT 18, Alkaline Phosphatase 62, Serum Total Protein 6.6, Albumin 3.3 Plan Visit Medications Admin istered ED medications:: Medications Discontinued Medications Generic Name Dose Route Start Last Admin Trade Name Freq PRN Reason Stop Dose Admin Hydromorphone HCl 1 mg 07/02/21 02:35 07/02/21 04:05 Hydromorphone 1mg/Ml Syr IVP 07/02/21 02:36 1 mg 1T ONE Administration Sodium Chloride 1,000 mls @ 999 mls/hr 07/02/21 02:11 07/02/21 02:38 Ns 0.9% IV 07/02/21 03:11 999 mls/hr .Q1H1M ONE Administration Ciprofloxacin/Dextrose 400 mg in 200 mls @ 200 mls/hr 07/02/21 02:41 07/02/21 04:06 Cipro 400mg Piggyback IV 07/02/21 03:40 200 mls/hr ONCE ONE Administration Ketorolac Tromethamine 15 mg 07/02/21 02:10 07/02/21 02:38 Ketorolac Tromethamine 30 Mg/Ml Sdv IVP 07/02/21 02:11 15 mg 1T ONE Administration Ondansetron HCl 4 mg 07/02/21 02:35 07/02/21 04:04 Ondansetron Hcl/Pf 4 Mg/2 Ml Sdv IVP 07/02/21 02:36 4 mg 1T ONE Administration Discharge Plan Admission/Discharge Dx Primary DC Diagnosis: right hydronephrosis ED Provider: Sera Bunn ED Status: Ready for Discharge Time Seen by Provider: 07/02/21 02:10 Triaged At: 07/02/21 02:01 Condition Condition: Stable Discharge Detail Disposition: Home, Self-Care Med Rec New Prescriptions: New ciprofloxacin HCl [Cipro] 500 mg tablet 500 mg PO BID Qty: 14 RF: 0 ondansetron HCl [Zofran] 4 mg tablet 4 mg PO Q8H PRN (Reason: nausea and vomiting) 4 Days Qty: 10 RF: 0 oxycodone 5 mg capsule 5 mg PO Q8H PRN (Reason: pain (scale score 7-10)) 3 Days Qty: 7 RF: 0 Discontinued nitrofurantoin monohyd/m-cryst 100 mg capsule 100 mg PO BID RF: 0 No Action multivitamin [Daily Multiple] 1 EACH tablet 1 ea PO DAILY RF: 0 Discharge Education Printouts: Urinary Tract Infection in Women (ED), Hydronephrosis (ED), Return to Work Instructions (ED) Follow Up Visit/Referrals: Marisa Elise [Primary Care Provider] - (please follow up in 4 days. please also follow up with the urologist for cystoscopy today 07/02/21 as previously scheduled.) Forms Forms Work Release: Work/School/Activ/Gym Release *Discharge Patient* Discharge Orders: Discharge Order (Routine); Ordered 07/02/21 Ordered By: Sera Bunn Report Signers: <Electronically signed by Sera Bunn MD> Sera Bunn MD 07/02/21 0453 Sera Bunn MD SIGNATURE DA Report Cosigners: D: MYLES 07/02/21238 T: MYLES 07/02/21238 CC: Marisa Elise Name Value Range Interpretation Code Description Data Felisha rce(s) Supporting Document(s) ID Date Data Source [id number] 07/02/2021 03:46:00 AM EDT [facility] @07/02/21 0258: UA W/ MICRO added. RFLXG = UMIC.Method of Collection:: Voided Less than 10,000 CFU/MLStaph spp, Strep spp, Corynebacterium sppProbable contaminants no senst done @07/02/21 0258: UA W/ MICRO added. RFLXG = UMIC.Method of Collection:: Voided Name Value Range Interpretation Code Description Data Felisha rce(s) Supporting Document(s) Color of Urine Abnormal (applies to non-numeric results) [facility] @Review & document. Appearance of Urine CLEAR Abnormal (applies to non-nu meric results) [facility] pH of Urine by Test strip 6.0 5-8 [facility] Specific gravity of Urine by Refractometry 1.014 1.005-1.030 [facility] Leukocyte esterase [Presence] in Urine by Test strip NEGATIVE Above high normal [facility] @DO MICRO!!!! Nitrite [Presence] in Urine by Test strip NEGATIVE [facility] Protein [Presence] in Urine by Test strip NEGATIVE Above high normal [facility] @DO MICRO!!!! Glucose [Mass/volume] in Urine by Automated test strip NEGATIVE NEG ATIVE [facility] Ketones [Presence] in Urine by Test strip NEGATIVE [facility] Urobilinogen [Presence] in Urine 0.2-1 EU/dl [facility] Bilirubin.total [Presence] in Urine by Automated test strip NEGATIVE [facility] Erythrocytes [#/volume] in Urine by Test strip LARGE NEGATIV E Above high normal [facility] @DO MICRO!!!! URINE MICROSCOPIC ADDED Microscopic Added [facility] ID Date Data Source [id number] 07/03/2021 09:33:00 AM EDT [facility] @07/02/21 0258: UA W/ MICRO added. RFLXG = UMIC.Method of Collection:: Voided Less than 10,000 CFU/MLStaph spp, Strep spp, Corynebacterium sppProbable contaminants no senst done @07/02/21 0258: UA W/ MICRO added. RFLXG = UMIC.Method of Collection:: Voided Name Value Range Interpretation Code Description Data Felisha rce(s) Supporting Document(s) ID Date Data Source [id number] 07/02/2021 03:46:00 AM EDT [facility] @07/02/21 0258: UA W/ MICRO added. RFLXG = UMIC.Method of Collection:: Voided Less than 10,000 CFU/MLStaph spp, Strep spp, Corynebacterium sppProbable contaminants no senst done @07/02/21 0258: UA W/ MICRO added. RFLXG = UMIC.Method of Collection:: Voided Name Value Range Interpretation Code Description Data Felisha rce(s) Supporting Document(s) Erythrocytes [#/volume] in Urine by Manual count 51-100 /hpf 0-5 Above high normal [facility] Leukocytes [#/volume] in Urine by Manual count 3-5 /hpf 0-5 [facility] Cells [Type] in Urine sediment by Light microscopy [facility] Bacteria [Presence] in Urine sediment by Light microscopy NEGATIVE Above high normal [facility] ID Date Data Source [id number] 07/02/2021 02:25:00 AM EDT [facility] Name Value Range Interpretation Code Description Data Felisha rce(s) Supporting Document(s) Bacteria identified in Urine by Culture Laboratory test result [facility] ([facility]) Less than 10,000 CFU/ML Staph spp, Strep spp, Corynebacterium spp Probable contaminants no senst done ID Date Data Source [id number] 07/02/2021 02:25:00 AM EDT [facility] ([facility]) Name Value Range Interpretation Code Description Data Felisha rce(s) Supporting Document(s) Erythrocytes [#/volume] in Urine by Manual count Laboratory test result 0-5 Above high normal [facility] ([facility]) Leukocytes [#/volume] in Urine by Manual count Laboratory test result 0-5 [facility] ([facility]) Cells [Type] in Urine sediment by Light microscopy Laboratory test re sult [facility] Bacteria [Presence] in Urine sediment by Light microsc opy Laboratory test result Above high [facility] ID Date Data Source [id number] 07/02/2021 02:25:00 AM EDT [facility] ([facility]) Name Value Range Interpretation Code Description Data Felisha rce(s) Supporting Document(s) Color of Urine Laboratory test result Abnormal (applies to non-numeric results) [facility] Urine Microscopic Added Laboratory test result [facility] ([facility]) Microscopic Added Appearance of Urine Laboratory test result Abnor mal (applies to non-numeric results) [facility] ([facility]) pH of Urine by Test strip 6.0 5-8 [facility] ([facility]) Specific gravity of Urine by Refractometry 1.014 1.005-1.030 [facility] ([facility]) Leukocyte esterase [Presence] in Urine by Test strip Laboratory test result Above high normal [facility] ([facility]) Nitrite [Presence] in Urine by Test strip Laboratory [facility] Protein [Presence] in Urine by Test strip Laboratory test result Above high normal [facility] Glucose [Mass/volume] in Urine by Automated test strip Laborator y test result [facility] ([facility]) Urobilinogen [Presence] in Urine Laboratory test result 0.2-1 [facility] ([facility]) Ketones [Presence] in Urine by Test strip Laboratory test result [facility] ([facility]) Bilirubin.total [Presence] in Urine by Automated test strip Laboratory test result [facility] ([facility]) Erythrocytes [#/volume] in Urine by Test strip Laboratory test r esult Above high normal [facility] ([facility]) ID Date Data Source [id number] 07/02/2021 02:25:00 AM EDT [facility] ([facility]) Name Value Range Interpretation Code Description Data Felisha rce(s) Supporting Document(s) Choriogonadotropin [Moles/volume] in Urine Laboratory test result [facility] ([facility]) ID Date Data Source [id number] 06/28/2021 11:34:00 PM EDT [facility] ED Physician Documentation NAME: LAVON LAWS : 1980 AGE: 40 MR#: [id number] SERVICE DATE: 06/28/[address]: Hari Ramirez MD PRIMARY CARE DR: Marisa Elise ROOM#: HPI (Adult, General) General Chief Complaint: Urogenital Stated Complaint: BLOOD CLOTS IN URINE Time Seen by Provider: 06/28/21 21:04 History of Present Illness Narrative: 40-year-old white female history of diagnosis of UTI this weekwith some hematuria put on Macrobid now with overt matt gross hematuria painless but with clots. First such episode hematuria ever. Denies a history of night sweats or weight loss or aniline dye exposures but does have a positive maternal history of bladder cancer. No history of kidney stones [place] any fever or chills ROS otherwise acutely negative and noncontributory PSH is significant for remote hysterectomy and by lateral salpingo-oophorectomy for chronic pelvic pain syndrome PMH significant for DJD and medication allergies above , , Allergies/Home Meds Allergies Allergy/AdvReac Type Severity Reaction Status Date / Time metronidazole [From FLAGYL] Allergy Mild NAUSEA AND Verified 06/28/21 21:09 VOMITING AND RASH Sulfa (Sulfonamide Allergy Mild Rash Verified 06/28/21 21:09 Antibiotics) sulfacetamide [Sulfacetamide] Allergy Mild Rash Verified 06/28/21 21:09 Home Medications Medication Instructions Recorded Confirmed Last Taken Type multivitamin [Daily Multiple 1 ea PO DAILY tab 12/30/15 06/28/21 06/28/21 History Vitamin] nitrofurantoin monohyd/m-cryst 100 mg PO BID 06/28/21 06/28/21 06/28/21 History ER plan Plan: See ED orders PMH (from Triage) Patient Medical History PMH Reviewed/Updated as Needed: Yes PMH/PSH from Triage: Medical History (Updated 07/29/20 @ 11:30 by Manuela Caruso) 6 (Medical) Parity 5 (Medical) Z87.898 Poor circulation (Medical) Surgical History (Updated 04/30/19 @ 11:56 by [employer] [place]) Biopsy of breast (Surgical) right section (Surgical) Cholecystectomy (Surgical) History of - surgery (Surgical) BL TUBES AND OVARIES 02/13/19 EXTENSIVE ADHESIONS History of hysterectomy (Surgical) [facility]-12/31/2012 Status post tubal ligation (Surgical) Female History LMP:: Hysterectomy : No Hx Drug Resistant Infections Hx MRSA: (Methicillin-resistant Staphylococcus aureus): No Hx VRE (Vancomycin-resistant enterococci): No Hx C.Diff: No Hx CRKP: No Hx Other Resistant Infection?: No Isolation: Standard precautions Hx Recent Travel Out of the country within 10 days (where): No Hx Fever: No Hx Fever with a rash?: No Social History Does patient have suicidal/homicidal thoughts or ideation?: No Are you in a relationship with/Does anyone hit you, yell/swear at you, steal from you?: No Substance Use Hx Alcohol Use: No Hx Substance Use: No Hx Substance Use Treatment: No Smoking Status: Current every day smoker Tobacco Use Tobacco Products:: Less than 1/2 pk/day Vaccination History Hx/Date of Tetanus, Diphtheria Vaccination: Yes Hx/Date of Influenza Vaccination: No Hx/Date of Pneumococcal Vaccination: No Immunizations Up to Date: Yes PFSH Medical History 6 Parity 5 Poor circulation Surgical History Biopsy of breast section Cholecystectomy History of - surgery History of hysterectomy Status post tubal ligation Family History (Updated 07/30/20 @ 12:03 by Manuela henson) Mother Kidney disease Father No problems noted. Aunt Breast cancer Aunt Breast cancer Other Asthma Seizure disorder Social History (Updated 07/30/20 @ 12:03 by Manuela Caruso) Does the Patient have a Healthcare Proxy: No Does Patient have a DNR?: No Does Patient have a Living Will?: No adopted: No household members: spouse and children marital status: Hx Recent Travel (where): No sexually active: Yes do you think of yourself as: straight/heterosexual Smoking Status: Current every day smoker Female Reproductive History Menstrual Age of Menarche: 9 control method: other Menopause type: surgical Total pregnancies: 6 Ab spontaneous: 1 ROS Review of Systems ROS Narrative: Review of systems data limited to the pertinent data of the HPI only otherwise acutely negative and noncontributory., Patient is without lightheadedness or shortness of breath ordizziness any abdominal pain. Physical Exam General General appearance: alert and anxious Head Head exam: Present atraumatic and normal inspection Eye Eye exam: Present normal apperance, PERRL and EOMI Pupils: Present normal accommodation ENT ENT exam: Present normal exam and normal orophraynx Neck Neck exam: Present normal inspection and supple; Absent meningismus or lymphadenopathy Respiratory Respiratory exam: Present normal lung sounds bilaterally; Absent respiratory distress or prolonged expiratory Cardiovascular Cardiovascular Exam: Present regular rate, normal rhythm, normal heart sounds and no murmur GI/Abdominal GI/Abdominal exam: Present Abd soft, bowel sounds present all quadrents and normal bowel sounds; Absent guarding, rebound or pulsatile mass Extremities Exam Extremities exam: Present capillary refill brisk; Absent tenderness or calf tenderness Back Exam Back exam: Present normal inspection; Absent CVA tenderness (R), CVA tenderness (L), paraspinal tenderness or vertebral tender ness Neurological Exam Neurological exam: Present alert, oriented X3, CN II- XII intact and normal gait; Absent motor sensory deficit Psychiatric Psychiatric exam: Present normal affect Skin Skin exam: Present warm and dry; Absent cyanosis Vital Signs Vital Signs: Vital Signs 06/28/21 21:03 06/29/21 01:30 Temperature 98 F 98 F Pulse Rate 80 76 Respiratory Rate 16 16 Blood Pressure 128/58 124/60 O2 Sat by Pulse Oximetry 99 98 MDM (comprehensive) Lab Data Labs: 06/28/21 21:20 06/28/21 21:20 Laboratory Results Last 24 hours 06/28/21 20:50: Urine Color Red, Urine Appearance Cloudy A, Urine pH 5.0, Ur Specific [place] 1.008,Urine Protein 300 mg/dl H, Urine Ketones Negative, Urine Blood Large H, Urine Nitrite Negative, Urine Bilirubin Negative, Urine Urobilinogen 0.2 eu/dl, Ur Leukocyte Esterase Small H, Urine RBC 51-100 H, Urine WBC 2-4, Ur Squamous Epith Cells Few, Urine Bacteria Small amount H, Micro UA Comment Microscopic added, Urine Glucose Negative 06/28/21 21:20: WBC 8.3, RBC 3.92 L, Hgb 12.6, Hct 37.5, MCV 96, MCH 32 H, MCHC 34, RDW 12, Plt Count 349, MPV 8.9 L, Immature Gran % (Auto) 0.4, Neut % (Auto) 55.9, Lymph % (Auto) 29.8, [place]ip[place] % (Auto) 6.7, Eos % (Auto) 6.1, Baso % (Auto) 1.1, Lymph # (Auto) 2.5, Abs Immat Gran (auto) 0.0, Add Manual Diff No, Absolute Neutrophils 4.7, Monocytes # 0.6, Absolute Eosinophils 0.5, Absolute Basophils 0.1 06/28/21 21:20: PT 10.8, INR 1.0, PTT ([place]) 26.2 06/28/21 21:20: Sodium 141, Potassium 3.5, Chloride 109, Carbon Dioxide 30, Anion Gap 6 L, BUN 9, Creatinine 0.6, GFR Calculation Greater than 60, Glucose 103, Calcium 8.7, Total Bilirubin 0.5, AST 14, ALT 19, Alkaline Phosphatase 72, Serum Total Protein 7.2, Albumin 3.6 Microbiology 06/28/21 22:00 Nasopharyngeal SARS-CoV-2 Rapid RNA (RT-PCR) - Final Sars-Cov-2 Not Detected Influenza A Not Detected Influenza B Not Detected RSV Not Detected Radiology Data interpreted by me: CXR NAPD Radiology impressions: CT ABD Pel with C+ - IMPRESSION: 1. The appendix has a normal appearance. 2. Bilateral tiny renal cysts without evidence of an enhancing renal tumor or calculi. 3. The urinary bladder is empty and contracted on this exam. Automatic exposure control was used as a dose lowering technique. Contrast Type: Omnipaque 300. Contrast Volume: 100cc REPORT SIGNATURE ON FILE 06/28/2021 (22:59 Eastern Time ) Signed by: Dalton Hong M.D. Medical Decision Making Free Text/Narative:: 0001 No change vss [address] [facility] [address] [place] ? 0144 - OK with dispo plan , Critical Care Time Critical Care Time Critical Care Time: Yes (35 min CCT - complex cc w/u eval rx dispo ) Plan Plan Plan: per above DC data Discharge Plan Admission/Discharge Dx Primary DC Diagnosis: Gross Hematuria: Etiology TBD ED Provider: Hari Ramirez ED Status: Discharged Time Seen by Provider: 06/28/21 21:04 Triaged At: 06/28/21 19:49 Condition Condition: Stable Discharge Detail Disposition: Home, Self-Care Med Rec New Prescriptions: No Action nitrofurantoin monohyd/m-cryst 100 mg capsule 100 mg PO BID RF: 0 multivitamin [Daily Multiple] 1 EACH tablet 1 ea PO DAILY RF: 0 Discharge Education Printouts: Hematuria (ED) Follow Up Visit/Referrals: KELLY PECK [PHYSICIAN] - Marisa Elise [Primary Care Provider] - Medications Medication reconciliation performed b y provider at discharge: Yes Forms Forms Work Release: Work/School/Activ/Gym Release Follow Up Care/Instructions Diet/Activity/Wound Care..: see RX - cont same regime meds see urology md Dr Peck et al in 1-2 d - call in am for appt referencing this ED visit phone call to urology MD Keep NPO as you prob need a cystoscopy eric RTED if sx increase or cant void or any fever or new ssx es pain , *Discharge Patient* Discharge Orders: Discharge Order (Routine); Ordered 06/29/21 Ordered By: Hari Ramirez Discharge Date/Time: 06/29/21 01:20 Interventions Interventions: ED Discharge Instructions Last Done: 06/29/21 01:34 Report Signers: <Electronically signed by Hari Ramirez MD> Hari Ramirez MD 06/29/21 0158 Hari Ramirez MD SIGNATURE DA Report Cosigners: D: NICK 06/28/212333 T: NICK 06/28/212333 CC: Marisa Elise Name Value Range Interpretation Code Description Data Felisha rce(s) Supporting Document(s) ID Date Data Source [id number] 06/28/2021 10:59:00 PM EDT [facility] [address] [place] [address] [phone] NAME SEX PT STATUS ACCOUNT NUMBER LAVON LAWS REG ER [id number] ORDERING PHYSICIAN LOCATION MEDICAL RECORD NO. Hari Ramirez MD ER [id number] ATTENDING PHYSICIAN DATE OF DATE OF EXAM/TIME Marisa Elise 1980 06/28/212109 TYPE / EXAM CT Abd/pel w/ contrast REASON FOR EXAM gross painless hematuria Clinical History/Indication for Exam: gross painless hematuria Gross painless hematuria CT SCAN OF THE ABDOMEN AND PELVIS WITH CONTRAST A CT scan of the abdomen and pelvis was performed administering 100 cc of intravenous Omnipaque 300to obtain thin transaxial slices during a portal venous phase acquisition of the abdomen and pelvis on a multidetector CT scan. Dose reduction technique was applied. The lung bases are clear. The gallbladder was removed. The liver is enlarged and extends from side to side. The spleen, pancreas, and adrenal gland have a normal appearance. There are a few bilateral tiny renal cysts. There is no hydronephrosis. There is no solid enhancing renal tumor. No renal calculi are present. No inflammatory changes are present in the upper intraabdominal fat and there is no ascites or adenopathy. The abdominal aorta has a normal caliber. The bowel in the upper abdomen has a normal caliber without signs of obstruction. Images of the pelvis demonstrates an empty contracted urinary bladder. The uterus is diminutive and retroverted unless this is a vaginal cuff following a prior hysterectomy. There is no pelvic ascites. The appendix is normal. IMPRESSION: 1. The appendix has a normal appearance. 2. Bilateral tiny renal cysts without evidence of an enhancing renal tumor or calculi. 3. The urinary bladder is empty and contracted on this exam. Automatic exposure control was used as a dose lowering technique. Contrast Type: Omnipaque 300. Contrast Volume: 100cc REPORT SIGNATURE ON FILE 06/28/2021 (22:59 Eastern Time ) Signed by: Dalton Hong M.D. Reported By Dalton Hong MD on 06/28/212258 Signed By Dalton Hong MD on 06/28/212258 Date Time CC: Marisa Hong M.D. Techn: SPANI Trans Dt/Tm: Trans by: DT Prt Dt/Tm: : Total DLP = 286.00 mGy-cm : Total Radiation Dose = 4.2900 mSv Lifetime Dose: 4.2900 mSv Name Value Range Interpretation Code Description Data Felisha rce(s) Supporting Document(s) ID Date Data Source [id number] 06/28/2021 10:22:00 PM EDT [facility] [address] [id number] [phone] NAME SEX PT STATUS ACCOUNT NUMBER LAVON LAWS REG ER [id number] ORDERING PHYSICIAN LOCATION MEDICAL RECORD NO. Hari Ramirez MD ER [id number] ATTENDING PHYSICIAN DATE OF DATE OF EXAM/TIME Marisa Elise 1980 06/28/212109 TYPE / EXAM Xray Chest One View REASON FOR EXAM poss preop Clinical History/Indication for Exam: poss preop CHEST X-RAY ONE VIEW. The examination is requested for possible preoperative clearance. The lungs are over aerated. No parenchymal disease is seen. The heart, mediastinum, and hilar structures project normally. Impression: Over aeration changes noted; no active disease is visualized REPORT SIGNATURE ON FILE 06/28/2021 (22:22 Eastern Time ) Signed by: Michael Gale M.D. Board Certified Radiologist Reported By Michael Gale MD on 06/28/212221 Signed By Michael Gale MD on 06/28/212221 Date Time CC: Marisa Gale MD Techn: SPANI Trans Dt/Tm: Trans by: DT Prt Dt/Tm: : Total DLP = 0.00 mGy-cm Fluoroscopy Time (in secs): Name Value Range Interpretation Code Description Data Felisha rce(s) Supporting Document(s) ID Date Data Source [id number] 06/28/2021 11:32:00 PM EDT [facility] NORMAL RESULT IS "Not Detected"Cepheid S ARS-CoV-2,FLU/RSV is Multiplex real time RT-PCRNegative results do not preclude SARS-COV-2, influenza orRSV infection and should not be used as the sole basis fortreatment or other patient management decisions.False negative results may occur if virus is present atlevels below the analytical limit of detection.This test has been authorized by FDA under an EUA for use byauthorized laboratoriesSARS-rel CoV RNA Resp Ql LISA+probeFLUAV RNA Resp Ql LISA+probeFLUBV RNA Resp Ql LISA+probeRSV RNA Resp Ql LISA+probe Name Value Range Interpretation Code Description Data Felisha rce(s) Supporting Document(s) ID Date Data Source [id number] 06/28/2021 10:00:00 PM EDT [facility] Name Value Range Interpretation Code Description Data Felisha rce(s) Supporting Document(s) Cepheid SARS/FLU/RSV RT-PCR SARS-COV-2 NOT DETECTED [facility] This lab was ordered by [facility] and reported by [facility]. ID Date Data Source [id number] 06/28/2021 10:00:00 PM EDT [facility] ([facility]) Name Value Range Interpretation Code Description Data Felisha rce(s) Supporting Document(s) Laboratory test finding (navigational concept) Laboratory test result [facility] ([facility]) BLOOD CLOTS IN URINE ID Date Data Source [id number] 06/28/2021 09:30:00 PM EDT [facility] Name Value Range Interpretation Code Description Data Felisha rce(s) Supporting Document(s) Leukocytes [#/volume] in Blood by Automated count 8.3 10*3/uL 4.45-10 .71 [facility] Erythrocytes [#/volume] in Blood by Automated count 3.92 10*6/uL 4.20-5.40 Below low normal [facility] Hemoglobin [Moles/volume] in Blood 12.6 g/dL 10.7-15.4 [facility] Hematocrit [Volume Fraction] of Blood by Automated count 37.5 % 3 7-47 N [facility] Erythrocyte mean corpuscular volume [Ent itic volume] in Cord blood by Automated count 96 fL 80-96 N [facility] ital Erythrocyte mean corpuscular hemoglobin [Entitic mass] by Au tomated count 32 pg 27-31 Above high normal [facility] Erythrocyte mean corpuscular hemoglobin concentration [Mass/volume] in Cord blood 34 g/dL 33-37 N [facility] ital Erythrocyte distribution width [Entitic volume] by Automated count 12 % 11-15 N [facility] Platelets [#/volume] in Blood by Automated count 349 10*3/uL 130-472 N [facility] Platelet mean volume [Entitic volume] in Blood 8.9 fL 9.1-13. 1 Below low normal [facility] Neutrophils/100 leukocytes in Blood by Automated count 55.9 % 41- 77 N [facility] Neutrophils [#/volume] in Blood by Automated count 4.7 U 1.7-7.6 N [facility] Lymphocytes/100 leukocytes in Blood by Automated count 29.8 % 14- 46 N [facility] Lymphocytes [#/volume] in Blood by Automated count 2.5 U 0.6-4.6 N [facility] Monocytes/100 leukocytes in Blood by Automated count 6.7 % 4-12 N [facility] Monocytes [#/volume] in Blood by Automated count 0.6 U 0.2-1.2 N [facility] Eosinophils/100 leukocytes in Blood by Automated count 6.1 % 0-7 N [facility] Eosinophils [#/volume] in Blood by Automated count 0.5 U 0.0-0.5 N [facility] Basophils/100 leukocytes in Blood by Automated count 1.1 % 0.4-1 .3 N [facility] Basophils [#/volume] in Blood by Automated count 0.1 U 0.0-0.2 N [facility] NUCLEATED RED BLOOD CELL 0 % [facility] NUCLEATED RED BLOOD CELL# 0 U [facility] Immature granulocytes [Presence] in Blood by Automated count 0-2 N [facility] Immature granulocytes [#/volume] in Blood by Automated count 0.0 U 0-0.1 N [facility] Manual Differential panel - Blood NO [facility] ID Date Data Source [id number] 06/28/2021 09:58:00 PM EDT [facility] Name Value Range Interpretation Code Description Data Felisha rce(s) Supporting Document(s) Prothrombin Time (Patient) 10.8 s 9.6-12.3 N [facility] INR 1.0 0.9-1.1 [facility] THE INR IS OPERATIONALLY DEFINED FOR CARL[place] SH PLASMA FROMPATIENTS STABILIZED ON ORAL ANTICOAGULANTS.ROUTINE ANTICOAGULANT THERAPY 2.0-3.0RECURRENT SYSTEMIC EMBOLISM/HEART VALVE REPLACEMENT 2.5-3.5 aPTT.lupus sensitive (LA screen) 26.2 s 22.7-31.6 N [facility] ID Date Data Source [id number] 06/28/2021 09:49:00 PM EDT [facility] Name Value Range Interpretation Code Description Data Feilsha rce(s) Supporting Document(s) Urea nitrogen [Mass/volume] in Serum or Plasma 9 mg/dL 9-23 N [facility] Sodium [Moles/volume] in Serum or Plasma 141 mmol/L 132-146 [facility] Potassium [Moles/volume] in Serum or Plasma 3.5 mmol/L 3.5-5.5 [facility] Chloride [Moles/volume] in Serum or Plasma 109 mmol/L 99-109 [facility] Carbon dioxide, total [Moles/volume] in Serum or Plasma 30 mmol/L 20 -31 [facility] Anion gap in Serum or Plasma 6 mmol/L 8-16 Below low normal [facility] Glucose [Mass/volume] in Serum or Plasma 103 mg/dL 74-106 [facility] Creatinine 0.6 mg/dL 0.5-1.1 [facility] Glomerular filtration rate/1.73 sq M.pre dicted [Volume Rate/Area] in Serum or Plasma Greater Than 60 ABOVE 60 [facility] Alanine aminotransferase [Enzymatic acti vity/volume] in Serum or Plasma by With P-5'-P 19 U/L 10-49 [facility] ital Aspartate aminotransferase [Enzymatic ac tivity/volume] in Serum or Plasma by With P-5'-P 14 U/L 0-33 [facility] pital Alkaline phosphatase [Enzymatic activity/volume] in Serum or Plasma 72 U/L 45-129 N [facility] Calcium [Mass/volume] in Serum or Plasma 8.7 mg/dL 8.5-10.1 N [facility] Bilirubin.total [Mass/volume] in Serum or Plasma 0.5 mg/dL 0.3-1.2 [facility] Albumin [Mass/volume] in Serum or Plasma by Bromocresol purple (BCP) dye binding method 3.6 g/dL 3.2-4.8 N [facility] ital Protein [Mass/volume] in Serum or Plasma 7.2 g/dL 5.7-8.2 N [facility] ID Date Data Source [id number] 06/28/2021 09:20:00 PM EDT [facility]) Name Value Range Interpretation Code Description Data Felisha rce(s) Supporting Document(s) Laboratory test finding (navigational concept) 10.8 s 9 .6-12.3 Normal (applies to non-numeric results) [facility] ([facility]) aPTT.lupus sensitive (LA screen) 26.2 s 22.7-31.6 Normal (applies to non-numeric results) [facility] ([facility]) Inr 1.0 0.9-1.1 Normal (applies to non-numeric resul ts) [facility] ([facility]) THE INR IS OPERATIONALLY DEFINED FOR CARL[place]TA SH PLASMA FROM PATIENTS STABILIZED ON ORAL ANTICOAGULANTS. ROUTINE ANTICOAGULANT THERAPY 2.0-3.0 RECURRENT SYSTEMIC EMBOLISM/HEART VALVE REPLACEMENT 2.5-3.5 ID Date Data Source [id number] 06/28/2021 09:20:00 PM EDT [facility] ([facility]) Name Value Range Interpretation Code Description Data Felisha rce(s) Supporting Document(s) Urea nitrogen [Mass/volume] in Serum or Plasma 9 mg/dL 9 -23 Normal (applies to non-numeric results) [facility] ([facility]) Potassium [Moles/volume] in Serum or Plasma 3.5 mmol/L 3.5- 5.5 Normal (applies to non-numeric results) [facility] ([facility]) Sodium [Moles/volume] in Serum or Plasma 141 mmol/L 132-146 Normal (applies to non-numeric results) [facility] ([facility]) Chloride [Moles/volume] in Serum or Plasma 109 mmol/L 99-10 9 Normal (applies to non-numeric results) [facility] ([facility]) Anion gap in Serum or Plasma 6 mmol/L 8-16 Below low normal [facility] ([facility]) Carbon dioxide, total [Moles/volume] in Serum or Plasma 30 mmol/ L 20-31 Normal (applies to non-numeric results) [facility] ([facility]) Glucose [Mass/volume] in Serum or Plasma 103 mg/dL 74-106 Normal (applies to non-numeric results) [facility] ([facility]) Creatinine 0.6 mg/dL 0.5-1.1 Normal (applies to non-numeric resul ts) [facility] ([facility]) Glomerular filtration rate/1.73 sq M.pre dicted [Volume Rate/Area] in Serum or Plasma [facility] Aspartate aminotransferase [Enzymatic ac tivity/volume] in Serum or Plasma by With P-5'-P 14 U/L 0-33 Normal (applies to non-numeric results) [facility] Alanine aminotransferase [Enzymatic acti vity/volume] in Serum or Plasma by With P-5'-P 19 U/L 10-49 Normal (applies to non-numeric results) [facility]) Calcium [Mass/volume] in Serum or Plasma 8.7 mg/dL 8.5-10. 1 Normal (applies to non-numeric results) [facility]) Alkaline phosphatase [Enzymatic activity/volume] in Serum or Plasma 72 U/L 45-129 Normal (applies to non-numeric results) [facility] ([facility]) Bilirubin.total [Mass/volume] in Serum or Plasma 0.5 mg/dL 0.3-1.2 Normal (applies to non-numeric results) [facility] ([facility]) Protein [Mass/volume] in Serum or Plasma 7.2 g/dL 5.7-8.2 Normal (applies to non-numeric results) [facility] ([facility]) Albumin [Mass/volume] in Serum or Plasma by Bromocresol purple (BCP) dye binding method 3.6 g/dL 3.2-4.8 Normal (applies to non-numeric results) [facility] ([facility]) ID Date Data Source [id number] 06/28/2021 09:20:00 PM EDT [facility] ([facility]) Name Value Range Interpretation Code Description Data Felisha rce(s) Supporting Document(s) Leukocytes [#/volume] in Blood by Automated count 8.3 10*3/uL 4.45-10.71 Normal (applies to non-numeric results) [facility] ([facility]) Erythrocytes [#/volume] in Blood by Automated count 3.92 10*6/uL 4.20-5.40 Below low normal [facility] ([facility]) Hemoglobin [Moles/volume] in Blood 12.6 g/dL 10.7-15.4 Normal (applies to non- numeric results) [facility] ([facility]) Hematocrit [Volume Fraction] of Blood by Automated count 37.5 % 37-47 Normal (applies to non-numeric results) [facility] ([facility]) Erythrocyte mean corpuscular volume [Ent itic volume] in Cord blood by Automated count 96 fL 80-96 Normal (applies to non-numeric results) [facility] ([facility]) Erythrocyte mean corpuscular hemoglobin [Entitic mass] by Au tomated count 32 pg 27-31 Above high normal [facility] ([facility]) Erythrocyte distribution width [Entitic volume] by Automated cou nt 12 % 11-15 Normal (applies to non-numeric results) [facility] ([facility]) Erythrocyte mean corpuscular hemoglobin concentration [Mass/volume] in Cord blood 34 g/dL 33-37 Normal (applies to non-numeric results) [facility] ([facility]) Platelets [#/volume] in Blood by Automated count 349 10*3/uL 130-472 Normal (applies to non-numeric results) [facility] ([facility]) Neutrophils/100 leukocytes in Blood by Automated count 55.9 % 41-77 Normal (applies to non-numeric results) [facility] ([facility]) Platelet mean volume [Entitic volume] in Blood 8.9 fL 9.1-13. 1 Below low normal [facility] ([facility]) Neutrophils [#/volume] in Blood by Automated count 4.7 U 1.7-7.6 Normal (applies to non-numeric results) [facility] ([facility]) Lymphocytes [#/volume] in Blood by Automated count 2.5 U 0.6-4.6 Normal (applies to non-numeric results) [facility] ([facility]) Lymphocytes/100 leukocytes in Blood by Automated count 29.8 % 14-46 Normal (applies to non-numeric results) [facility] ([facility]) Monocytes [#/volume] in Blood by Automated count 0.6 U 0.2-1.2 Normal (applies to non-numeric results) [facility] ([facility]) Monocytes/100 leukocytes in Blood by Automated count 6.7 % 4-12 Normal (applies to non-numeric results) [facility] ([facility]) Eosinophils/100 leukocytes in Blood by Automated count 6.1 % 0-7 Normal (applies to non-numeric results) [facility] ([facility]) Basophils/100 leukocytes in Blood by Automated count 1.1 % 0.4-1.3 Normal (applies to non-numeric results) [facility] ([facility]) Eosinophils [#/volume] in Blood by Automated count 0.5 U 0.0-0.5 Normal (applies to non-numeric results) [facility] ([facility]) Basophils [#/volume] in Blood by Automated count 0.1 U 0.0-0.2 Normal (applies to non-numeric results) [facility] ([facility]) Laboratory test finding (navigational concept) 0 % [facility] Laboratory test finding (navigational concept) 0 U [facility]) Immature granulocytes [Presence] in Blood by Automated count 0.4 0-2 Normal (applies to non-numeric results) [facility]) Manual Differential panel - Blood Laboratory test result [facility]) Immature granulocytes [#/volume] in Blood by Automated count 0.0 U 0-0.1 Normal (applies to non-numeric results) [facility]) ID Date Data Source [id number] 06/28/2021 09:55:00 PM EDT [facility] @06/28/21 2154: UA W/ MICRO added. RFLXG = UMIC.Method of Collection:: Voided @08/23/21 2154: UA W/ MICRO added. RFLXG = UMIC.Method of Collection:: Voided Name Value Range Interpretation Code Description Data Felisha rce(s) Supporting Document(s) Color of Urine [facility] Appearance of Urine CLEAR Abnormal (applies to non-nu meric results) [facility] pH of Urine by Test strip 5.0 5-8 [facility] Specific gravity of Urine by Refractometry 1.008 1.005-1.030 [facility] Leukocyte esterase [Presence] in Urine by Test strip NEGATIVE Above high normal [facility] @DO MICRO!!!! Nitrite [Presence] in Urine by Test strip NEGATIVE [facility] Protein [Presence] in Urine by Test strip NEGATIVE Above high normal [facility] @DO MICRO!!!! Glucose [Mass/volume] in Urine by Automated test strip NEGATIVE NEG ATIVE [facility] Ketones [Presence] in Urine by Test strip NEGATIVE [facility] Urobilinogen [Presence] in Urine 0.2-1 EU/dl [facility] Bilirubin.total [Presence] in Urine by Automated test strip NEGATIVE [facility] Erythrocytes [#/volume] in Urine by Test strip LARGE NEGATIV E Above high normal [facility] @DO MICRO!!!! URINE MICROSCOPIC ADDED Microscopic Added [facility] ID Date Data Source [id number] 06/30/2021 08:39:00 AM EDT [facility] @06/28/21 2154: UA W/ MICRO added. RFLXG = UMIC.Method of Collection:: Voided @06/28/21 2154: UA W/ MICRO added. RFLXG = UMIC.Method of Collection:: Voided Name Value Range Interpretation Code Description Data Felisha rce(s) Supporting Document(s) Urine culture result No growth [facility] ID Date Data Source [id number] 06/28/2021 09:55:00 PM EDT [facility] @06/28/214: UA W/ MICRO added. RFLXG = UMIC.Method of Collection:: Voided @06/28/21 2154: UA W/ MICRO added. RFLXG = UMIC.Method of Collection:: Voided Name Value Range Interpretation Code Description Data Felisha rce(s) Supporting Document(s) Erythrocytes [#/volume] in Urine by Manual count 51-100 /hpf 0-5 Above high normal [facility] Leukocytes [#/volume] in Urine by Manual count 2-4 /hpf 0-5 [facility] Cells [Type] in Urine sediment by Light microscopy [facility] Bacteria [Presence] in Urine sediment by Light microscopy NEGATIVE Above high normal [facility] ID Date Data Source [id number] 06/28/2021 08:50:00 PM EDT [facility] ([facility]) Name Value Range Interpretation Code Description Data Felisha rce(s) Supporting Document(s) Bacteria identified in Urine by Culture Laboratory test result [facility] ([facility]) ID Date Data Source [id number] 06/28/2021 08:50:00 PM EDT [facility] ([facility]) Name Value Range Interpretation Code Description Data Felisha rce(s) Supporting Document(s) Erythrocytes [#/volume] in Urine by Manual count Laboratory test result 0-5 Above high normal [facility] ([facility]) Leukocytes [#/volume] in Urine by Manual count Laboratory test result 0-5 [facility] ([facility]) Bacteria [Presence] in Urine sediment by Light microsc opy Laboratory test result Above high normal [facility] ([facility]) Cells [Type] in Urine sediment by Light microscopy Laboratory test re sult [facility] ([facility]) ID Date Data Source [id number] 06/28/2021 08:50:00 PM EDT [facility] ([facility]) Name Value Range Interpretation Code Description Data Felisha rce(s) Supporting Document(s) Color of Urine Laboratory test result [facility] ([facility]) Appearance of Urine Laboratory test result Abnor mal (applies to non-numeric results) [facility] ([facility]) Specific gravity of Urine by Refractometry 1.008 1.005-1.030 [facility] ([facility]) pH of Urine by Test strip 5.0 5-8 [facility] ([facility]) Leukocyte esterase [Presence] in Urine by Test strip Laboratory test result Above high normal [facility] ([facility]) Protein [Presence] in Urine by Test strip Laboratory test result Above high normal [facility] ([facility]) Nitrite [Presence] in Urine by Test strip Laboratory test result [facility] ([facility]) Glucose [Mass/volume] in Urine by Automated test strip Laborator y test result [facility] ([facility]) Ketones [Presence] in Urine by Test strip Laboratory test result [facility] ([facility]) Urobilinogen [Presence] in Urine Laboratory test result 0.2-1 [facility] ([facility]) Erythrocytes [#/volume] in Urine by Test strip Laboratory test r esult Above high normal [facility] ([facility]) Bilirubin.total [Presence] in Urine by Automated test strip Laboratory test result [facility] ([facility]) Urine Microscopic Added Laboratory test result [facility] ([facility]) Microscopic Added ID Date Data Source [id number] 06/09/2021 08:41:00 AM EDT [facility] Name Value Range Interpretation Code Description Data Felisha rce(s) Supporting Document(s) Coronavirus (Sars-Cov-2),Lisa Laboratory test result [facility] ([facility]) This nucleic acid amplification test was developed and its performance characteristics determined by Present. Nucleic acid amplification tests include RT-PCR and [...] negative (not detected) result in this assay. -[facility] [id number] ID Date Data Source [id number] 06/09/2021 08:41:00 AM EDT [facility] Name Value Range Interpretation Code Description Data Felisha rce(s) Supporting Document(s) SARS coronavirus 2 RNA Not Detected [facility] This lab was ordered by [facility] sp and reported by [facility]. ID Date Data Source [id number] 06/10/2021 04:06:[address] [facility] Name Value Range Interpretation Code Description Data Felisha rce(s) Supporting Document(s) CORONAVIRUS (SARS-COV-2),LISA Not Detected Not Detected [facility] This nucleic acid amplification test was developed and its performancecharacteristics determined by Present. Nucleic acidamplification tests include RT-PCR and TMA. This test has not beenFDA cleared or approved. This test has been authorized by FDA underan Emergency Use Authorization (EUA). This test is only authorizedfor the duration of time the declaration that circumstances existjustifying the authorization of the emergency use of in vitrodiagnostic tests for detection of SARS-CoV-2 virus and/or diagnosisof COVID-19 infection under section 564(b)(1) of the Act, 21 U.S.C.360bbb-3(b) (1), unless the authorization is terminated or revokedsooner.When diagnostic testing is negative, the possibility of a falsenegative result should be considered in the context of a patient'srecent exposures and the presence of clinical signs and symptomsconsistent with COVID- 19. An individual without symptoms of COVID-19and who is not shedding SARS-CoV-2 virus would expect to have anegative (not detected) result in this assay.RN- [facility] [id number] ID Date Data Source [id number] 08/19/2020 09:35:00 AM EDT [facility] ([facility]) Name Value Range Interpretation Code Description Data Felisha rce(s) Supporting Document(s) Calcidiol [Mass/volume] in Serum or Plasma Laboratory test result [facility] ([facility]) Vitamin D, 25-Hydroxy 22.7 L ng/mL 30.0-100.0 RN Vitamin D deficiency has been defined by the [place] of [employer] and an Endocrine Society practice guideline as a level of serum 25-OH vitamin D less than 20 ng/mL (1,2). The Endocrine Society went on to further define vitamin D insufficiency as a level between 21 and 29 ng/mL (2). 1. IOM ([place] of [employer]). 2010. Di etary reference intakes for calcium and D. [place]: The National Academies Press. 2. Amie MARTINEZ, Marvin BONILLA, Caio cleaning BAUGH, et al. Evaluation, treatment, and prevention of vitamin D deficiency: an Endocrine Society clinical practice guideline. JCEM. 2010; 96(7):1911-30. RN-[facility] [address] [facility] [id number] Folate [Mass/volume] in Serum or Plasma 3.6 ng/mL [facility] ([facility]) A serum folate concentration of less adam n 3.1 ng/mL is considered to represent clinical deficiency. [facility] [address] [facility] [phone] Cobalamin (Vitamin B12) [Mass/volume] in Serum or Plasma 340 pg/mL 2 32-1245 [facility] ([facility]) RN-[facility] [id number] Borrelia burgdorferi IgG+IgM Ab [Presence] in Serum Laboratory test result [facility] ([facility]) <content>Lyme IgG/IgM Ab</content>
< content><0.91 ISR 0.00- 0.90 RN</content>
<content>Negative <0.91</content>
<content>Equivocal 0.91 - 1.09</content>
<content>Positive >1.09</content>
<content>Lyme Disease Ab, Quant, IgM</content>
<content><0.80 index 0.00-0.79 RN</content>
<content>Negative <0.80</content>
<content>Equivocal 0.80 - 1.19</content>
<content>Positive >1.19</content>
<content>IgM levels may peak at 3-6 weeks post infection, then</content>
<content>gradually decline.</content>
<content>RN-[facility] [id number]</content>
<content></content> ID Date Data Source [id number] 08/19/2020 09:35:00 AM EDT [facility] ([facility]) Name Value Range Interpretation Code Description Data Felisha rce(s) Supporting Document(s) Estimated GFR Laboratory test result [facility] ([facility]) Glomerular filtration rate/1.73 sq M.pre dicted [Volume Rate/Area] in Serum or Plasma by Creatinine-based formula (MDRD) 113 [facility]) >59 mL/min/1.73m2 Glomerular filtration rate/1.73 sq M pre dicted among blacks [Volume Rate/Area] in Serum or Plasma by Creatinine-based formula (MDRD) 131 [facility]) <content>>59 mL/min/1.73m2</content><br/ ><content>Note: Persistent reduction for 3 months or more in an eGFR</content>
<content><60 mL/min/1.73m2 defines CKD. Patients with eGFR values</content>
<content>>=60 mL/min/1.73m2 may also have CKD if evidence of persistent</content>
<content>proteinuria is present. Additional information may be found at</content>
<content> [email or web address].</content>
<content>R [facility], Dept of Path</content>
<content>[address] [place], [place] [id number] * </content>
<content></content> ID Date Data Source [id number] 08/19/2020 09:35:00 AM EDT [facility]) Name Value Range Interpretation Code Description Data Felisha rce(s) Supporting Document(s) Thyroxine (T4) free [Mass/volume] in Serum or Plasma 1.1 ng/dL 0.8-1 .8 [facility]) R [facility], Dept of Path [address] [id number] * (1 23) [id number] ID Date Data Source [id number] 08/19/2020 09:35:00 AM EDT [facility] ([facility]) Name Value Range Interpretation Code Description Data Felisha rce(s) Supporting Document(s) Sodium [Moles/volume] in Serum or Plasma 140 mmol/L 136-146 [facility] ([facility]) Glucose [Mass/volume] in Serum or Plasma 90 mg/dL 70-100 [facility] ([facility]) Creatinine [Mass/volume] in Serum or Plasma 0.60 mg/dL 0.50-1.10 [facility] ([facility]) Urea nitrogen [Mass/volume] in Serum or Plasma 10 mg/dL 4-18 [facility] ([facility]) Chloride [Moles/volume] in Serum or Plasma 103 mmol/L 96-109 [facility] ([facility]) Carbon dioxide, total [Moles/volume] in Serum or Plasma 26 mmol/L 20 -32 [facility] ([facility]) Potassium [Moles/volume] in Serum or Plasma 3.8 mmol/L 3.5-5.3 [facility] ([facility]) Protein [Mass/volume] in Serum or Plasma 7.0 g/dL 6.4-8.2 [facility] ([facility]) Calcium [Mass/volume] in Serum or Plasma 9.0 mg/dL 8.4-10.4 [facility] ([facility]) Albumin [Mass/volume] in Serum or Plasma 4.3 g/dL 3.5-5.0 [facility] ([facility]) Bilirubin.total [Mass/volume] in Serum or Plasma 0.86 mg/dL 0.30-1.20 [facility] ([facility]) Alanine aminotransferase [Enzymatic activity/volume] in Seru m or Plasma 10 U/L 7-50 [facility] ([facility]) Alkaline phosphatase [Enzymatic activity/volume] in Serum or Plasma 71 U/L 10-118 [facility] ([facility]) Aspartate aminotransferase [Enzymatic activity/volume] in Serum or Plasma 16 U/L 3-40 [facility] ([facility]) Globulin [Mass/volume] in Serum by calculation 2.7 g/dL 2.3-3.5 [facility] ([facility]) Urea nitrogen/Creatinine [Mass Ratio] in Serum or Plasma 16.7 6 .0-20.0 [facility] ([facility]) Anion gap in Serum or Plasma 11.0 mmol/L 7.0-16.0 [facility] Albumin/Globulin [Mass Ratio] in Serum or Plasma 1.6 1.0-2.0 [facility] ([facility]) [facility] [address] [address] * Osmolality (Calculated) 278 mos/kg 280-300 Below low normal [facility]) ID Date Data Source [id number] 08/19/2020 09:35:00 AM EDT [facility] ([facility]) Name Value Range Interpretation Code Description Data Felisha rce(s) Supporting Document(s) Thyrotropin [Units/volume] in Serum or Plasma 1.660 uIU/ml 0.490-4.67 0 [facility] ([facility]) [facility] [address] [place] [id number] * ID Date Data Source [id number] 08/19/2020 09:35:00 AM EDT [facility] ([facility]) Name Value Range Interpretation Code Description Data Felisha rce(s) Supporting Document(s) Leukocytes [#/volume] in Blood by Automated count 8.8 x10E3/uL 4.3-10 .9 [facility] ([facility]) Erythrocytes [#/volume] in Blood by Automated count 4.35 x10E6/uL 3.8 0-5.30 [facility] ([facility]) Hematocrit [Volume Fraction] of Blood by Automated count 41.4 % 3 5.0-47.0 [facility] ([facility]) Hemoglobin [Mass/volume] in Blood 13.7 g/dL 11.8-15.8 [facility] ([facility]) Erythrocyte mean corpuscular volume [Entitic volume] by Auto mated count 95.2 fl 82.0-98.0 [facility] ([facility] Erythrocyte mean corpuscular hemoglobin concentration [Mass/volume] by Automated count 33.1 g/dL 32.0-36.0 [facility] ([facility]) Erythrocyte distribution width [Ratio] by Automated count 12.0 % 11.5-14.5 [facility] ([facility]) Erythrocyte mean corpuscular hemoglobin [Entitic mass] by Automated count 31.5 pg 27.5-33.5 [facility] ([facility]) Segmented neutrophils/100 leukocytes in Blood by Manual count 55 .3 % 44.0-74.0 [facility] ([facility]) Platelets [#/volume] in Blood by Automated count 379 x10E3/uL 130-400 [facility] ([facility]) Lymphocytes/100 leukocytes in Blood by Automated count 27.0 % 15. 0-45.0 [facility] ([facility]) Platelet mean volume [Entitic volume] in Blood by Landen-William 9.9 fl 8.6-12.6 [facility] ([facility]) Monocytes/100 leukocytes in Blood by Automated count 6.5 % 2.0-1 3.0 [facility] ([facility]) Basophils/100 leukocytes in Blood by Automated count 0.9 % 0.0-2 .0 [facility] ([facility]) Eosinophils 10.3 % 0.0-6.0 Above high normal [facility] ([facility]) Neutrophils [#/volume] in Semen by Manual count 4.9 x10E3/uL 1.4-7.0 [facility] ([facility]) Lymphocytes [#/volume] in Blood 2.4 x10E3/uL 1.0-3.4 [facility] ([facility]) Monocytes [#/volume] in Blood 0.6 x10E3/uL 0.2-1.0 [facility] ([facility]) Eosinophils [#/volume] in Blood by Automated count 0.9 x10E3/uL 0.0-0.5 Above high normal [facility] ([facility]) Basophils [#/volume] in Blood by Automated count 0.1 x10E3/uL 0.0-0.2 [facility] ([facility]) R [facility], Dept of [address] [address] * ID Date Data Source [id number] 08/20/2020 02:08:[address] [facility] Name Value Range Interpretation Code Description Data Felisha rce(s) Supporting Document(s) LYME IGG/M W/REFLX WEST SEE BELOW [facility] Lyme IgG/IgM Ab <0 .91 ISR 0.00-0.90 RN Negative <0.91 Equivocal 0.91 - 1.09 Positive >1.09Lyme Disease Ab, Quant, IgM <0.80 index 0.00-0.79 RN Negative <0.80 Equivocal 0.80 - 1.19 Positive >1.19 IgM levels may peak at 3-6 weeks post infection, then gradually decline.[facility] [address] [facility] [id number] ID Date Data Source [id number] 08/20/2020 05:06:[address] [facility] Name Value Range Interpretation Code Description Data Felisha rce(s) Supporting Document(s) VITAMIN D, 25-HYDROXY SEE BELOW [facility] Vitamin D, 25-Hydroxy 22.7 L ng/mL 30.0-100.0 RNVitamin D deficiency has been defined by the [place] of[place]icine and an Endocrine Society practice guideline as alevel of serum 25-OH vitamin D less than 20 ng/mL (1,2).The Endocrine Society went on to further define vitamin Dinsufficiency as a level between 21 and 29 ng/mL (2).1. IOM ([place] of [employer]). 2010. Dietary reference intakes for calcium and D. [place]: The National Academies Press.2. Amie MF, Marvin NC, Amaris-Vimal BAUGH, et al. Evaluation, treatment, and prevention of vitamin D deficiency: an Endocrine Society clinical practice guideline. JCEM. 2010; 96(7):1911-30.-[facility] [id number] ID Date Data Source [id number] 08/20/2020 04:06:[address] [facility] Name Value Range Interpretation Code Description Data Felisha rce(s) Supporting Document(s) VITAMIN B12 340 pg/mL [id number] [facility] ital RN-[facility] [place] [address] [facility] [id number] ID Date Data Source [id number] 08/20/2020 03:05:[address] [facility] Name Value Range Interpretation Code Description Data Felisha rce(s) Supporting Document(s) FOLATE,SERUM 3.6 ng/mL >3.0 [facility] A serum folate concentration of less adam n 3.1 ng/mL isconsidered to represent clinical deficiency.-[facility] [address] [id number] ID Date Data Source [id number] 08/19/2020 11:39:[address] [facility] Name Value Range Interpretation Code Description Data Felisha rce(s) Supporting Document(s) ESTIMATED GFR (CALCULATED) [facility] EGFR 113 [facility] >59 mL/min/1.73m2 EGFR, -ALGERIAN 131 [facility] >59 mL/min/1.37i7Bqpw: Persistent reduction for 3 months or more in an eGFR <60 mL/min/1.73m2 defines CKD. Patients with eGFR values >=60 mL/min/1.73m2 may also have CKD if evidence of persistent proteinuria is present. Additional information may be found at [email or web address]. R [facility], [place] [address] * ID Date Data Source [id number] 08/19/2020 11:39:[address] [facility] Name Value Range Interpretation Code Description Data Felisha rce(s) Supporting Document(s) T-4 FREE 1.1 ng/dl 0.8-1.8 [facility] R [facility], [place] [address] * ID Date Data Source [id number] 08/19/2020 11:39:[address] [facility] Name Value Range Interpretation Code Description Data Felisha rce(s) Supporting Document(s) GLUCOSE 90 mg/dl 70-100 [facility] BUN 10 mg/dl 4-18 [facility] CREATININE, SERUM 0.60 mg/dl 0.50-1.10 [facility] SODIUM 140 mmol/l 136-146 [facility] tasha POTASSIUM 3.8 mmol/l 3.5-5.3 [facility] tasha CHLORIDE 103 mmol/l 96-109 [facility] CARBON DIOXIDE 26 mmol/l 20-32 [facility] ospital ALBUMIN 4.3 g/dl 3.5-5.0 [facility] PROTEIN, TOTAL 7.0 g/dl 6.4-8.2 [facility]spital CALCIUM 9.0 mg/dl 8.4-10.4 [facility] ALKALINE PHOSPHATASE 71 U/l 10-118 [facility] SGOT (AST) 16 U/l 3-40 [facility] SGPT (ALT) 10 U/l 7-50 [facility] BILIRUBIN, TOTAL 0.86 mg/dl 0.30-1.20 [facility] BUN/CREATININE RATIO 16.7 6.0-20.0 [facility] GLOBULIN 2.7 g/dl 2.3-3.5 [facility] ANION GAP 11.0 mmol/l 7.0-16.0 [facility] OSMOLALITY (CALCULATED) 278 mos/kg 280-[address] [facility] A/G RATIO 1.6 1.0-2.0 [facility] R [facility], Dept of [facility] [address] [place] [address] * ID Date Data Source [id number] 08/19/2020 11:34:[address] [facility] Name Value Range Interpretation Code Description Data Eflisha rce(s) Supporting Document(s) TSH (THYROTROPIN) 1.660 uIU/ml 0.490-4.670 [facility] R [facility], [place] [address] * ID Date Data Source [id number] 08/19/2020 11:10:[address] [facility] Name Value Range Interpretation Code Description Data [facility] rce(s) Supporting Document(s) WBC 8.8 x10E3/uL 4.3-10.9 [facility] RBC 4.35 x10E6/uL 3.80-5.30 [facility] spital HEMOGLOBIN 13.7 g/dl 11.8-15.8 [facility] HEMATOCRIT 41.4 % 35.0-47.0 [facility] MCV 95.2 fl 82.0-98.0 [facility] MCH 31.5 pg 27.5-33.5 [facility] MCHC 33.1 g/dl 32.0-36.0 [facility] RDW 12.0 % 11.5-14.5 [facility] PLATELET COUNT 379 x10E3/uL 130-400 [facility] MPV 9.9 fl 8.6-12.6 [facility] al SEGMENTED NEUTROPHILS 55.3 % 44.0-74.0 [facility] LYMPHOCYTES 27.0 % 15.0-45.0 [facility] ital MONOCYTES 6.5 % 2.0-13.0 [facility] al EOSINOPHILS 10.3 % 0.0-6.0 H [facility] ital BASOPHILS 0.9 % 0.0-2.0 [facility] NEUTROPHIL ABSOLUTE 4.9 x10E3/uL 1.4-7.0 [facility] LYMPHOCYTES ABSOLUTE 2.4 x10E3/uL 1.0-3.4 [facility] MONOCYTE ABSOLUTE 0.6 x10E3/uL 0.2-1.0 [facility] EOSINOPHIL ABSOLUTE 0.9 x10E3/uL 0.0-0.5 H [facility] BASOPHIL ABSOLUTE 0.1 x10E3/uL 0.0-0.2 [facility] R [facility], [place] [address] * ID Date Data Source [id number] 07/30/2020 12:01:00 PM EDT [facility] Patient Name: LAVON LAWS DO B: 1980 Sex: F Pt Unit #: [id number] Location:[facility] Provider: Visit Date/Time: 07/30/20 Primary Insurance: [place] [place] Insurance: Self Pay Intake Vital Signs 07/30/20 12:02 Current Height 4 ft 11.5 in Current Weight 117 lb 2 oz Weight Measurement Method Standing Scale BMI 23.2 BP 106/61 Blood Pressure Location Lt brachial Position Sitting Respiration 16 Pulse 88 Pulse Strength Normal Pulse Source Pulse Oximeter Temp 98.1 F Temp Source Oral Pulse Oximetry (%) 97 Oxygen Delivery Method room air 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 LAST PAP WAS 09/03/13 WNL. SHE HAS HAD A ETHAN BLSO ANDIS ON THE E2 PATCH. SHE DOES WOND ER IF SHE COULD GO BACK TO HER OTHER PATCH THE PHARMACY CHNAGED BRANDS FOR HER AND SHE HAS NOW NOTICED HER SKIN TO ITCH. SHE HAS SOME BLEEDING WITH INTERCOURSE AT TIMES. SHE DOES REPORT A ? VAGINAL INFECTION . SHE STATES LAST WEEK SHE HAD SOME VAGINAL ITCHING ANDUSED BENADRYL CREAM TO IT. SHE WAS "SWELLED" UP FROM IT . SHE DID CHANGE UNDERWEAR AND WONDERS IF THAT WAS IT. [facility]. PATERNAL GM HAD COLON CANCER. SHE HAS AUNTS ON BOTH SIDES OF HER FAMILY WITH BREAST CANCER. LAST MAMMO WAS 04/19/18 MAMMO ORDER IN . 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 Is patient in pain?: No Allergies metronidazole [From FLAGYL] Allergy (Mild, Verified 07/30/20 12:22) NAUSEA AND VOMITING AND RASH Sulfa (Sulfonamide Antibiotics) Allergy (Mild, Verified 07/30/20 12:22) Rash sulfacetamide [Sulfacetamide] Allergy (Mild, Verified 07/30/20 12:22) Rash HIV Testing Offer - ages 13-64 Requirement for HIV testing offer been met?: Patient reports past refusal Coronavirus Screening Screening Have you traveled outside of [facility] or [facility] in the last 14 days.: No Has patient experienced coronavirus symptoms: No [facility] Medical History (Updated 07/29/20 @ 11:30 by Manuela Caruso) 6 Parity 5 Poor circulation Surgical History (Updated 04/30/19 @ 11:56 by [employer] [place]) Biopsy of breast section Cholecystectomy History of - surgery History of hysterectomy Status post tubal ligation Family History (Updated 07/30/20 @ 12:03 by Manuela Caruso) Mother Kidney disease Father No problems noted. Aunt Breast cancer Aunt Breast cancer Other Asthma Seizure disorder Social History (Updated 07/30/20 @ 12:03 by Manuela Caurso) Does the Patient have a Healthcare Proxy: No Does Patient have a DNR?: No Does Patient have a Living Will?: No adopted: No household members: spouse and children marital status: Hx Recent Travel (where): No sexually active: Yes do you think of yourself as: straight/heterosexual Smoking Status: Never smoker Sickle cell Sickle Cell Screening:: Not indicated Female Reproductive History Menstrual Age of Menarche: 9 control method: other Menopause type: surgical Total pregnancies: 6 Full term: 5 Ab spontaneous: 1 HPI Additional HPI HPI Details: PRESENTS FOR HER YEARLY EXAM . SHE NEEDS A ORDER FOR HER MAMMOGRAM SHE IS ON HRT AND C/O OF THE PATCH INSURANCE CHANGED AND THE NEW PATCH CAUSE SKIN IRRITATION AND BURNING . ALSO THE NEW PATCH IS LARGE. SHE HAD A ETHAN 2013. SHE STATES SHE FEELS WELL Review of Systems Const All systems reviewed are unremarkable except as noted in HPI and below Exam Const General: cooperative, healthy appearing, comfortable, no acute distress, well developed and well groomed Nutritional Appearance: average body habitus and well nourished Orientation: alert, awake, oriented x3, oriented to person, oriented to place and oriented to time Neck Neck: normal visual inspection Neck mass: No Thyroid: thyroid normal Chest Chest: normal inspection of the chest Breast/Axilla Inspection: normal inspection of the breasts and normal inspection of the axillae Breast/Axilla Palpation: normal palpation of the breasts, normal palpation of the axillae and no axillary lymphadenopathy Resp Effort Inspection: normal respiratory effort Auscultation: clear to auscultation bilaterally Cardio Rate: regular rate Rhythm: regular rhythm GI Inspection: Yes normal to inspection Palpation: soft (NON TENDER) External Female Exam: normal external appearance and normal appearance of the urethra Urethra: normal appearance of the urethra and normal palpation Speculum Exam - Vagina: normal appearance of the vagina and abnormal vaginal discharge (WHITE DISCHARGE ) white Speculum Exam - Cervix: Cervix absent Bimanual Exam- Vagina Uterus: uterus absent Bimanual Exam- Adnexa, other: no masses and normal Pelvic Support: normal, no cystocele, no rectocele and no enterocele Skin Lesions: no lesions Rashes: no rashes Neuro General: patient alert, patient awake and patient oriented x3 Extrem General: normal to inspection Psych Appearance: grossly normal and well kempt Assessment Plan Assessment Plan (1) Encounter for Routine Gynecological Examination: Code(s): Z01.419 - Encounter for gynecological examination (general) (routine) without abnormal findings Additional Comments Additional Comments: 1. PAP SMEAR DEFERRED DUE TO PROTOCOL ETHAN/BSO 2 MAMMOGRAM ORDERED . 3 . WET MOUNT DONE 4 DIET AND EXERCISE ADDRESSED 5 REVIEWED THE HRT WILL SEE IF INSURANCE WILL CHANGE TO SMALLER PATCH . 6. SHE WAS IN AGREEMENT . RETURN IN A YEAR OR SOONER IF PROBLEMS SHE VERB UNDERSTANDING SH Orders Other Orders: Orders: 3D DIG MAMMO SCREEN BILAT 6 Months Z12.31 Wet Prep Today N94.89 Electronically Signed By: <Electronically signed by Noemi Parra > Date/Time Signed: 07/30/20 1255 Name Value Range Interpretation Code Description Data Felisha rce(s) Supporting Document(s) ID Date Data Source [id number] 07/30/2020 03:52:00 PM EDT [facility] Long rods notedNo clue cells presentNo y east like or trichomonas seenSquamous cellsShort rods seenWBCs seen Name Value Range Interpretation Code Description Data Felisha rce(s) Supporting Document(s) Wet mount for Trichomonas Negative for Trichomonas vaginalis [facility] Procedure Social History Code Duration Value Status Description Data Source(s ) Smoking 08/04/2021 12:00:00 AM EDT Current Smoker completed Curre nt Smoker eCW1 ([facility]) Smoking 08/04/2021 12:00:00 AM EDT Current Smoker completed Curre nt Smoker eCW1 ([facility]) Smoking 08/04/2021 12:00:00 AM EDT Current Smoker completed Curre nt Smoker eCW1 ([facility]) Smoking 07/19/2021 12:00:00 AM EDT Current Smoker completed Curre nt Smoker eCW1 ([facility]) Smoking 07/19/2021 12:00:00 AM EDT Current Smoker completed Curre nt Smoker eCW1 ([facility]) Smoking 06/30/2021 12:00:00 AM EDT Current Smoker completed Curre nt Smoker eCW1 ([facility]) Smoking 06/30/2021 12:00:00 AM EDT Current Smoker completed Curre nt Smoker eCW1 ([facility]) Smoking 06/30/2021 12:00:00 AM EDT Current Smoker completed Curre nt Smoker eCW1 ([facility]) Smoking 06/30/2021 12:00:00 AM EDT Current Smoker completed Curre nt Smoker eCW1 ([facility]) 06/29/2021 12:05:14 AM EDT No completed No [facility] 06/29/2021 12:05:14 AM EDT No completed No [facility] 06/29/2021 12:05:14 AM EDT Current every day smoker co mpleted Current every day smoker [facility] Smoking 06/29/2021 12:05:00 AM EDT Current every day smoker co mpleted Current every day smoker [facility] Smoking 08/19/2020 12:00:00 AM EDT Patient has never smoked co mpleted Patient has never smoked [facility] ([facility]) Vital Signs ID Date Data Source UNK Name Value Range Interpretation Code Description Data Source(s) Body weight 96 [lb_av] 96 [lb_av] eCW1 ([facility]) Body height 59 [in_i] 59 [in_i] eCW1 ([facility]) Body mass index (BMI) [Ratio] 19.39 kg/m2 19.39 kg/m2 eCW1 ([facility]) Heart rate 84 /min 84 /min eCW1 ([facility]) Respiratory rate 18 /min 18 /min eCW1 ([facility]) Body temperature 97.7 [degF] 97.7 [degF] eCW1 ( [facility]) Systolic blood pressure 112 mm[Hg] 112 mm[Hg] e CW1 ([facility]) Diastolic blood pressure 68 mm[Hg] 68 mm[Hg] eCW1 ([facility]) Respiratory rate 18 /min 18 /min eCW1 ([facility]) Body weight 97 [lb_av] 97 [lb_av] eCW1 ([facility]) Body height 59 [in_i] 59 [in_i] eCW1 ([facility]) Body temperature 97.7 [degF] 97.7 [degF] eCW1 ( [facility]) Body mass index (BMI) [Ratio] 19.59 kg/m2 19.59 kg/m2 eCW1 ([facility]) Heart rate 78 /min 78 /min eCW1 ([facility]) Systolic blood pressure 110 mm[Hg] 110 mm[Hg] e CW1 ([facility]) Diastolic blood pressure 66 mm[Hg] 66 mm[Hg] eCW1 ([facility]) Body weight 97.8 [lb_av] 97.8 [lb_av] eCW1 ([facility]) Body weight 44.36 kg 44.36 kg eCW1 ([facility]) Body height 59 [in_i] 59 [in_i] eCW1 ([facility]) Body mass index (BMI) [Ratio] 19.75 kg/m2 19.75 kg/m2 eCW1 ([facility]) Heart rate 76 /min 76 /min eCW1 ([facility]) Respiratory rate 18 /min 18 /min eCW1 ([facility]) Body temperature 97.8 [degF] 97.8 [degF] eCW1 ( [facility]) Systolic blood pressure 108 mm[Hg] 108 mm[Hg] e CW1 ([facility]) Diastolic blood pressure 62 mm[Hg] 62 mm[Hg] eCW1 ([facility]) Respiratory rate 16 /min 16 /min [facility] ( [facility]) Heart rate 83 /min 83 /min [facility] ([facility]) Oxygen saturation in Arterial blood by Pulse oximetry 97 % 97 % [facility] ([facility]) Body height 60 [in_i] 60 [in_i] [facility] ([facility]) 5'0" Body weight 119.00 [lb_av] 119.00 [lb_av] MEDEN T ([facility]) Body mass index (BMI) [Ratio] 23.2 kg/m2 23.2 k g/m2 [facility] ([facility]) Systolic blood pressure 110 mm[Hg] 110 mm[Hg] M EDENT ([facility]) Diastolic blood pressure 64 mm[Hg] 64 mm[Hg] [facility] ([facility]) Body temperature 97.3 [degF] 97.3 [degF] [facility] ([facility]) Patient Treatment Plan of Care Planned Activity Planned Date Details Description Data Source (s) Fluconazole 150 MG Oral Tablet [Diflucan] 07/02/2021 12:00:00 AM ED T eCW1 ([facility]) Fluconazole 150 MG Oral Tablet [Diflucan] 07/02/2021 12:00:00 AM ED T eCW1 ([facility]) Ciprofloxacin 500 MG Oral Tablet 06/30/2021 12:00:00 AM EDT eCW1 ([facility]) Ciprofloxacin 500 MG Oral Tablet 06/30/2021 12:00:00 AM EDT eCW1 ([facility]) Ciprofloxacin 500 MG Oral Tablet 06/30/2021 12:00:00 AM EDT eCW1 ([facility]) Ciprofloxacin 500 MG Oral Tablet 06/30/2021 12:00:00 AM EDT eCW1 ([facility])
[2021-08-20] MEDS ORDERED: CIPROFLOXACIN 400 MG in IV 1 EA IV ONE (07:20)
[2021-08-20] MEDS ORDERED: LR 1,000 ML IV ONE (07:20)
[2021-08-20] MEDS ORDERED: propofoL 200 MG/20 ML VIAL As Ordered ONE (09:48)
[2021-08-20] MEDS ORDERED: LIDOCAINE 2% 100MG/5ML SDV (FOR ANES.) As Ordered ONE (09:48)
[2021-08-20] MEDS ORDERED: MIDAZOLAM INJ 2MG/2ML VIAL (J2250 PER 1MG) As Ordered ONE (09:48)
[2021-08-20] MEDS ORDERED: fentaNYL 100 MCG/2 ML INJECTION (J3010) As Ordered ONE (09:48)
--- NOTE | 2021-08-20 11:10 | IPNPDOC ---
Date Seen The patient was seen on 08/20/21. Progress Note Pt has had intermittent gross hematuria for several weeks. Questionable source. Ct's have been done and show no renal mass. Possible right upj obstruction. One ct showed no right hydronephrosis but the next ct, done not long after, did show hydronephrosis. Urology placed a stent. The stent relieved pt's significant right flank pain. Stent is now out. Mild intermittent right flank pain now. Gross hematuria has persisted. Lasix renal scan done but report isn't very helpful. Need to review scan with radiology. Today's surgery is to hopefully elucidate the cause of her gross hematuria and perhaps stop it. No guarantees given. Possible vascular malformation. No stone noted on ct's. No renal mass. Cysto with stent placement didn't uncover anything in the bladder. All d/w pt at length. Again, no guarantees. Pt transfused today because of low hgb, about 7. VS, I&O, 24H, Fishbone Vital Signs/I&O Vital Signs Date Time Temp Pulse Resp B/P (MAP) Pulse Ox O2 Delivery O2 Flow Rate FiO2 08/20/21 10:45 98.9 74 20 110/53 100 Room Air CHESTER HUERTA MD Aug 20, 2021 11:10
--- NOTE | 2021-08-20 11:11 | ROOPDOC ---
[facility] Report Of Operation Report of Operation DATE OF PROCEDURE: 08/20/21 PREPROCEDURE DIAGNOSES: [persistent intermittent gross hematuria, right flank pain]. POSTPROCEDURE DIAGNOSES: [bleeding from right kidney]. PROCEDURE PERFORMED: [cysto, fluoro, retrograde, rig and flex uscope, stent placement, basket extraction of clot RIGHT SIDE]. SURGEON: [Jose Huerta], MANAGER INTERNET: [none], ANESTHESIA: [general]. ESTIMATED BLOOD LOSS: Approximately mL. COMPLICATIONS: . REMARKS: . FINDINGS: SPECIMENS REMOVED: PROCEDURE NOTE: . DESCRIPTION OF PROCEDURE: . CHESTER HUERTA MD Aug 20, 2021 11:11
[2021-08-20] MEDS ORDERED: CONRAY-60 60% 50ML VIAL (Q9961) As Ordered ONE ×2 (11:16→11:28)
[2021-08-20] MEDS ORDERED: ACETAMINOPHEN 1000MG 100ML IV BTL (OFIRMEV) (J0131 PER 10MG) As Ordered ONE (11:41)
[2021-08-20] MEDS ORDERED: ONDANSETRON 4MG/2ML VIAL As Ordered ONE (11:42)
[2021-08-20] MEDS ORDERED: dexameTHASONE 4 MG/ML 1ML VIAL (J1100 PER 1MG) As Ordered ONE (11:42)
[2021-08-20] MEDS ORDERED: HYDR-3713 PO (12:32)
[2021-08-20] MEDS ORDERED: OXYB5TAB10 PO (12:32)
[2021-08-20] MEDS ORDERED: MACR100C43 PO (12:32)
[2021-08-20] MEDS ORDERED: PYRI1TAB5 PO (12:32)
--- NOTE | 2021-08-20 12:40 | REP ---
INDICATION: BILATERAL STENT PLACEMENT. COMPARISON: None. TECHNIQUE: Intraoperative fluoroscopic imaging. FINDINGS: Grade 3 right hydroureteronephrosis is noted with satisfactory right ureteral stent placement. Total fluoroscopic time 1 minutes 40 seconds. IMPRESSION: Status post right ureteral stent placement. <Electronically signed by Kanu Hernandez > 08/20/21 [id number]
[2021-08-20] MEDS ORDERED: oxyCODONE 5MG TAB PO PRN (12:55)
[2021-08-20] MEDS ORDERED: fentaNYL 100 MCG/2 ML INJECTION (J3010) IV PRN (12:55)
[2021-08-20] MEDS ORDERED: LR 1,000 ML IV SCH ×2 (12:55)
[2021-08-20] MEDS ORDERED: ONDANSETRON 4MG/2ML VIAL IV PRN (12:55)
[2021-08-20 13:35] LABS: HEMATOCRIT 31.4 % (36.0-47.0); HEMOGLOBIN 10.2 g/dl (12.0-15.5); MEAN CORPUSCULAR HGB CONC 32.5 g/dl (32.0-36.5); MEAN CORPUSCULAR VOLUME 95.4 fl (80.0-96.0); PLATELET COUNT, AUTOMATED 345 10^3/uL (150-450); RED BLOOD COUNT 3.29 10^6/uL (4.00-5.40); WHITE BLOOD COUNT 10.4 10^3/uL (4.0-10.0)
== END 2021-08-20 15:35 | disposition home or self-care (01) ==
LOC: M SDC 05:57
PROVIDERS: ATTEND Urology
DX: R31.0 Gross hematuria (principal); F17.218 Nicotine dependence, cigarettes, with other nicotine-induced disorders; Z88.2 Allergy status to sulfonamides; Z88.1 Allergy status to other antibiotic agents
CPT/HCPCS: 36415; 36430; 52332; 74420; 85027; 86850; 86900; 86901; 86920; 88108; C1769; C2617; J0131; J0744; J1100; J2250; J2405; J3010; P9016; Q9961